=== PATIENT | male | born 1965 | race Caucasian/White ===

== ENCOUNTER 2020-04-21 11:18 | Inpatient (IN) | payer OTHER, SELFPAY ==
[2020-04-21] VITALS (26 sets, daily range): BP systolic 130–201; BP diastolic 11–120; PULSE 93–119; RESP 19–30; TEMP 36.1–37.2; O2SAT 90–99; BMI 33.0; BMI 33.5; BMI 33.6
--- NOTE | 2020-04-21 11:22 | NURSING ---
NO OLD EKGS
--- NOTE | 2020-04-21 11:25 | EKG12_ITS ---
Test Reason : CP Blood Pressure : / mmHG Vent. Rate : 117 BPM Atrial Rate : 117 BPM P-R Int : 144 ms QRS Dur : 100 ms QT Int : 302 ms P-R-T Axes : 049 062 -11 degrees QTc Int : 421 ms Sinus tachycardia Inferior infarct , age undetermined Anterior infarct , possibly acute Lateral injury pattern ACUTE [place] / STEMI Abnormal ECG Confirmed by JULES ESCAMILLA, CRESENCIO ([id number]), editorial project manager HENRIETTA DUKE ([id number]) on 04/25/2020 1:03:53 PM Referred By: ANA Confirmed By:CRESENCIO VICENTE MD
--- NOTE | 2020-04-21 11:25 | RAD_ITS ---
STUDY: X-RAY CHEST REASON FOR EXAM: Male, 54 years old. Myocardial infarction TECHNIQUE: Frontal view of the chest COMPARISON: None. FINDINGS: There are mild congestive changes noted. The lungs are otherwise clear. There are no pleural effusions. There is no pneumothorax. The heart is normal in size. The visualized osseous structures are within normal limits. RAD/Chest 1 View (Portable) IMPRESSION: Mild pulmonary vascular congestion. Electronically Signed: César Roa, at 19:11 EDT Tel , Service support ,
--- NOTE | 2020-04-21 11:32 | ED.VISSUMM ---
- ER Visit Summary Date of Service: 04/21/20 Chief Complaint: Acute midsternal chest pain History of Present Illness: The patient is a 54 M no significant past medical history thinks he has reflux. Does not go to the doctor. 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 He smokes 2 to 3 packs of cigarettes per day for 25 to 30 years. States the last week he has had intermittent chest pain he is unsure if it specifically associated with exertion. This morning he had chest pain that was worse midsternal and he decided come in to have it evaluated. Denies any pleuritic pain. Denies any radiation to his neck jaw or back. Denies any abdominal pain. Physical Examination: Aged male vital signs are stable his initial blood pressure is elevated at 201/120. He does not look septic or toxic. He is currently having chest pain. H EENT exam unremarkable small tobacco. Neck nontender no JVD. Lungs clear to auscultation bilaterally. Heart regular rhythm rate about 115 no murmur. Abdomen soft nontender normal bowel sounds no peritoneal signs. Remedies moves all 4. Equal symmetrical radial pulses. Calves are nontender without edema or cords. Neurologically is awake and alert with no focal motor deficits. Test Results: EKG done on arrival shows an acute ST elevation PR with 6-8+ millimeters ST elevation in leads V1, 2, 3, 4, 5 and 6. There is inverted T waves and 2 3 and aVF. Currently there is no old EKG available for comparison. This appears to be an acute anterior PR. STEMI protocol has been initiated. This x-ray portable 1 view shows chronic changes consistent with smoking but no acute change. Normal mediastinum and cardiac silhouette. CBC shows a white count of 13. Hemoglobin is 17. Chemistries unremarkable other than a glucose of 199. BUN of 12 creatinine 1 gap of 7. PT/INR PTT normal. Troponin 13.7 consistent with an acute PR. Emergency Department Course and Treatment: Patient is having an acute anterior PR. I have already spoken to the hospitalist nocturnist physician who is on his way to the hospital. Patient be given a heparin bolus and p.o. aspirin. Restaurant Assistant wants to hold currently on Brilinta and will decide on that in the Data Processing Control Clerk. Patient is doing well on repeat exam and his pain is improving. He been given a heparin bolus and p.o. aspirin. He will be taken to the Data Processing Control Clerk shortly. Treatment Plan: Cardiac lab support service tech for acute intervention and then ICU admission. Disposition: Admission Impression: Acute anterior PR Acute chest pain Acute hyperglycemia History of tobacco abuse This note was generated with Mimeo dictation software. It may contain incorrect words, spelling, and punctuation that were not noted in review of the chart prior to signing ED Disposition - Plan for ED Patient: Disposition: Acute Care [facility]
[2020-04-21 11:40] LABS: Absolute Lymphocyte Count 2.36 X10^3/uL (0.83-4.51); Basophil# 0.09 X10^3/uL; Basophil% 0.7 % (0-1); Eosinophil# 0.04 X10^3/uL; Eosinophils% 0.3 % (0-5); Hematocrit 50.9 % (40-54); Hemoglobin 17.3 g/dL (13.0-16.5); Lymphocyte # 2.36 X10^3/ul (4.0); Lymphocyte % 17.9 % (19-41); Mean Corpuscular Hgb 31.4 pg (27.0-32.0); Mean Corpuscular Volume 92.4 fL (80-94); Mean Platelet Vol. 10.2 fl (6.2-12.0); Monocyte# 0.71 X10^3/uL; Monocyte% 5.4 % (0-10); NRBC Flagged by Analyzer 0 % (0-5); Neutrophil # 9.95 X10^3/uL (2.7-7.7); Neutrophil % 75.5 % (47-70); Platelet Count 304 K/mm3 (150-450); RBC Distribution Width CV 13.2 % (11.6-14.6); RBC Distribution Width SD 44.4 fl (35.1-43.9); Red Blood Count 5.51 M/mm3 (4.6-6.2); White Blood Count 13.2 K/mm3 (4.4-11.0)
--- NOTE | 2020-04-21 11:42 | NURSING ---
ICU 7 STEMI [facility]
[2020-04-21] MEDS: Heparin Injection (Vial) 5,000 UNIT/ML VIAL 5000 UNIT IV (11:49)
[2020-04-21] MEDS: Aspirin 81 MG TAB.CHEW 324 MG PO (11:51)
[2020-04-21 11:57] LABS: International Normalized Ratio 1.1; Prothrombin Time (Protime)PT. 13.2 SECONDS (11.7-14.9)
[2020-04-21 11:58] LABS: Partial Thromboplast Time 34.8 Seconds (24.1-36.2)
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
[2020-04-21 12:11] LABS: Anion Gap 7 (5-15); BUN 12 mg/dL (7-18); BUN/Creat Ratio 11.2 RATIO (10-20); Calcium,Total 9.7 mg/dL (8.5-10.1); Chloride 103 mmol/L (98-107); Creatinine, Serum 1.07 mg/dL (0.70-1.30); EST Glomerular Filtration Rate 77 mL/min (>60); Est Glom Filt Rate - Afr Amer 93 mL/min (>60); Estimated Creatinine Clearance 82.44 ml/min; Glucose 199 mg/dL (74-106); Potassium 4.4 mmol/L (3.5-5.1); Sodium Level 134 mmol/L (136-145)
--- NOTE | 2020-04-21 13:00 | EKG12_ITS ---
Test Reason : AM EKG Blood Pressure : / mmHG Vent. Rate : 082 BPM Atrial Rate : 082 BPM P-R Int : 156 ms QRS Dur : 114 ms QT Int : 348 ms P-R-T Axes : 029 076 037 degrees QTc Int : 406 ms Normal sinus rhythm Anterior infarct , possibly acute * ACUTE [place] Abnormal ECG Confirmed by JULES ESCAMILLA, CRESENCIO ([id number]), scientific editor HENRIETTA DUKE ([id number]) on 04/25/2020 1:16:29 PM Referred By: GILMA Confirmed By:CRESENCIO VICENTE MD
--- NOTE | 2020-04-21 13:06 | CON.PCM_ITS ---
Reason for Consult Date of Consultation: 04/21/20 Reason for Consultation: STEMI History of Present Illness: The patient is a 54 M no significant past medical history of possible GERD, not on any meds, smokes 2 to 3 packs of cigarettes per day for 25 to 30 years. States the last week he has had intermittent chest pain he is unsure if it specifically associated with exertion. This morning he had chest pain that was worse midsternal and he decided come in to have it evaluated. Denies any pleuritic pain. Denies any radiation to his neck jaw or back. Denies any abdominal pain. EKG done in the emergency room revealed anterior ST elevation SD and a STEMI alert was called. Patient was evaluated and brought emergently to the [facility] where he underwent coronary angiography which revealed 100% occlusion of the LAD that was treated with thrombectomy and drug-eluting stent placement. Prior to placing the drug-eluting stent medical compliance was emphasized to the patient and bare-metal stent versus drug-coated stent was discussed in detail. Patient agreed to take his medicines on a regular basis and requested that we go ahead with a drug-coated stent. Review of systems: All systems reviewed. All else is negative except that in the HPI Past Medical History Allergies/Adverse Reactions: Allergies No Known Allergies Allergy (Verified 04/21/20 11:41) Home Medications: Ambulatory Orders Medication Instructions Recorded NK 04/21/20 Smoking Status: Current every day smoker Objective: Vital Signs Temp Pulse Resp BP Pulse Ox 98.9 F 109 H 26 H 183/118 H 97 04/21/20 11:36 04/21/20 11:36 04/21/20 11:36 04/21/20 11:36 04/21/20 11:36 Oxygen Flow Rate (L/min) 2 Oxygen Delivery Method Nasal Cannula Weight: 230 lb 6.4 oz Body Mass Index (BMI) 33.0 General: Awake, Alert, Oriented x 3 HEENT: Atraumatic Oral: Moist Mucosa Neck: Supple Lungs: Clear to auscultation Cardiovascular: Regular Rhythm Abdomen: Soft Extremities: No edema Skin: No Rashes Psych/Mental Status: Appropriate 04/21/20 11:30: WBC 13.2 H, RBC 5.51, Hgb 17.3 H, Hct 50.9, MCV 92.4, MCH 31.4, MCHC 34.0, Plt Count 304, MPV 10.2, Immature Gran % (Auto) 0.200, Neut % (Auto) 75.5 H, Lymph % (Auto) 17.9 L, Door % (Auto) 5.4, Eos % (Auto) 0.3, Baso % (Auto) 0.7, Absolute Neuts (auto) 10.0 H, Nucleated RBC % 0 04/21/20 11:30: PT 13.2, INR 1.1, APTT 34.8 04/21/20 11:30: Sodium 134 L, Potassium 4.4, Chloride 103, Carbon Dioxide 24.0, Anion Gap 7, BUN 12, Creatinine 1.07, Est GFR (MDRD) Af Amer 93, Est GFR (MDRD) Non-Af 77, BUN/Creatinine Ratio 11.2, Glucose 199 H, Calcium 9.7, Troponin I 13.700 H* Rhythm: EKG: ECHO: Stress Test: Cardiac Cath: PCI: CT Surgery: Holter monitor: EPS: PPM: CXR: Chest CT Scan: Assessment/Plan 1. Anterior ST elevation SD: Patient was treated with thrombectomy and drug-el uting stent placement to the LAD. We will keep him on aspirin, Brilinta, statin, Coreg, lisinopril. 2. LV dysfunction: Patient has severe LV dysfunction. We will start him on Coreg and lisinopril and titrate as tolerated. He is at risk for going into decompensated CHF and may end up needing Lasix. We will monitor this closely in the intensive care unit.
[2020-04-21] MEDS: 0.9% Normal Saline 1,000 ML 30 ML IV (13:15)
--- NOTE | 2020-04-21 13:28 | CL.I_ITS ---
Patient Name: DALTON WARREN Study Date: 04/21/2020 Performing: Florian Grimm MD Ht: 70 inches 178 cm : 1965 Wt: 231.8 lbs 105 kg Age: 54 Gender: male BSA: 2.22 PROCEDURE(S) PERFORMED RK98-FSC/COR/LV DN91-QFC, TAMERA AND/OR PTCA, ARTERY OR GRAFT, SINGLE VESSEL CLINICAL PROFILE AND CO-MORBIDITIES Indications: ACS <= 24 hrs Heart Failure: None Stress/Imaging Stress/Image Study Performed: No CAD Presentations: STEMI. Symptom onset Date/Time: 04/21/20 Time Not Available CONCLUSIONS CAD as described. Severe LV dysfunction. No significant or MR. Successful thrombectomy and TAMERA to pLAD RECOMMENDATIONS Follow up with primary quality control lab technician HERNÁN Lockwood for at least 12 months DESCRIPTION OF PROCEDURE The patient arrived to the procedure lab. The risks and benefits of the procedure as well as a full d escription of our services here and lack of surgical backup were fully explained to the patient and/o r their significant other prior to the catheterization. The Timeout was completed, verifying the wyatt ect patient and procedure. The patient's procedural site was prepped and draped in the usual fashion. Local anesthetic was given subcutaneously to right radial region with Lidocaine 2%. Using a modified Seldinger technique, arterial access was obtained via the right femoral artery, a 6Fr sheath was ins erted.. Left Ventriculography was performed in HIGUERA projection using a 5 Fr. JR4. LV to AO pullback p ressures were then recorded. Right Coronary Artery selective angiography was then performed in multip le views using a 5 Fr. JR 4 catheter. Left Coronary Artery selective angiography was performed in mul tiple views using a 6 Fr. XB 3.0 Guide catheter. XB 3.0 Guide catheter was inserted and engaged into the LCA. [employer] [place] Guide wire was advance d to the LAD. Sylvia AP inserted Pass # 1 Sylvia AP Removed Emerge 2.5 x 12 Balloon catheter was inse rted. Balloon catheter was advanced across lesion in the LAD, proximal. Angiogram performed pre ballo on dilatation. PTCA balloon inflated at 10 atms for 15 secs. PTCA balloon inflated at 10 atms for 15 secs. Angiogram performed post balloon dilatation. Synergy 2.75 x 20 Drug Eluting stent was inserted. Drug Eluting stent was advanced across the lesion in the LAD, proximal. Angiogram performed pre sten t deployment. Angiogram performed post stent deployment. The arterial sheath was pulled and a TR Ba nd was applied for hemostasis CORONARY ANGIOGRAPHY DOMINANCE: Right Dominant LEFT HEART ASSESSMENT Left Ventricular Ejection Fraction: by LV Gram 20 % Global Hypokinesis - Severe LEFT MAIN: Mild luminal irregularities LEFT ANTERIOR DESCENDING ARTERY: PROX LAD: 100 % Stenosis CIRCUMFLEX ARTERY: PROX CIRC: 40 % Stenosis RIGHT CORONARY ARTERY: MID RCA: 100 % Stenosis. RPL and RPDA fill via collaterals from the left VALVE FINDINGS: No Aortic Valve Stenosis No Mitral Insufficency INTERVENTION INFORMATION LESION SITE: LAD (Proximal) Lesion Complexity: High/C, chronic total occlusion: No, lesion at bifurcation: No, thrombus present: Yes, lesion length: 20 mm, culprit lesion: Yes Pre Stenosis: 100 % Pre intervention CHANO flow: 0 PROCEDURE: Drug Eluting Stent with pre dilatation., Thrombectomy Post Stenosis: 0 % Post intervention CHANO flow: 3 Lesion Devices: Bradley .014 [employer] [place] Straight 190cm Cardinal 6 Fr XB3.0 100cm Guide Catheter [email or web address] 6 Fr. Sylvia AP Aspiration Catheter Alberto Sci EMERGE MR 2.50x12 BALLOON Alberto Sci Synergy MR TAMERA 2.75x20 COMPLICATIONS No Complications PROCEDURE MEDICATIONS Oxygen: 2 L/min via nasal cannula Brilinta 180 mg PO @ 04/21/2020 12:54:36 Heparin given IA 04/21/2020 12:10:30 Verapamil 2.5mg, Ntg 100mcgs, 3000 units of Heparin given IA 04/21/2020 12:10:30 IV Bolus: .9 NaCl 600ml total 04/21/2020 12:41:30 SUMMARY OF HEMODYNAMIC DATA Time AIR REST ECG 12:00:11 LV 156/0, 25 12:11:48 LV 161/-2, 24 12:11:54 LV 164/0, 29 12:12:24 LVp 153/0, 28 12:12:30 AOp 151/93 (119) 12:12:35 AO 152/93 (119) SA 12:12:37 Signed By Florian Grimm MD On 04/21/2020 13:27:47 Florian Grimm MD
[2020-04-21 13:52] LABS: Hematocrit 49.1 % (40-54); Hemoglobin 16.6 g/dL (13.0-16.5); Mean Corp Hgb Conc 33.8 g/dL (32-36); Mean Corpuscular Volume 91.8 fL (80-94); Mean Platelet Vol. 10.3 fl (6.2-12.0); Platelet Count 294 K/mm3 (150-450); RBC Distribution Width CV 13.1 % (11.6-14.6); RBC Distribution Width SD 44.3 fl (35.1-43.9); Red Blood Count 5.35 M/mm3 (4.6-6.2); White Blood Count 13.5 K/mm3 (4.4-11.0)
--- NOTE | 2020-04-21 14:09 | PCM.HP.STD ---
Problem List (1) Acute anterior wall HI Status: Acute (2) STEMI (ST elevation myocardial infarction) Status: Acute (3) History of coronary artery stent placement Status: Acute Comment: PCI-Thrombectomy and TAMERA-Prox LAD w/ 2.75 x 20 mm Synergy Stent 04/21/2020 (4) Atherosclerotic heart disease [place] coronary artery w/angina pectoris Status: Acute (5) Ischemic cardiomyopathy Status: Acute (6) Nicotine dependence Status: Chronic (7) Obesity Status: Chronic History of Present Illness Date of Admission: 04/21/20 Chief Complaint: chest pain The patient is a 54 year old M who was in his normal state of health and then had chest pain this morning. Patient stated the chest pain was midsternal and went through to his back. States that his left fingertips went numb as well. Short of breath and diaphoretic. Never had any issues like this before. Patient presented to the emergency room and was found to have an anterior ST elevation myocardial infarction EKG. STEMI team was called and patient was taken to the [facility]. Dr. Grimm performed left heart catheterization and patient had a LAD lesion which he had a stent placed also found to have a chronically occluded RCA lesion that was not addressed as that was not acute culprit of his chest pain and collateral vessels were noted. In the emergency room, patient was started on heparin, ticagrelor and aspirin. Patient states that since the heart catheterization his symptoms are better but not resolved at this time. [] Past Medical History Past Medical History (Chronic Problems): Chronic Problems Nicotine dependence (Chronic) Obesity (Chronic) Medical History: Medical History (Last Reviewed 04/21/20 @ 14:[address] Carlos Kaufman DO) STEMI (ST elevation myocardial infarction) (Acute) Onset Date: 04/21/20 I21.3 Atherosclerotic heart disease [place] coronary artery w/angina pectoris (Acute) I25.119 Ischemic cardiomyopathy (Acute) I25.5 Allergies No Known Allergies Allergy (Verified 04/21/20 11:41) Home Medications: Ambulatory Orders Medication Instructions Recorded NK 04/21/20 Surgical History: Surgical History History of coronary artery stent placement (Acute) Onset Date: 04/21/20 Z95.5 PCI-Thrombectomy and TAMERA-Prox LAD w/ 2.75 x 20 mm Synergy Stent 04/21/2020 Lives: With Family Smoking Status: Heavy Smoker (>10/day) - 2-3 PPD Tobacco Use: Cigarettes Alcohol: None Drugs: None - *Family History Paternal History Items: Stroke Review of Systems Constitutional: Reports: Malaise. Denies: Anorexia, Chills, Fever Eyes: Denies: Blurred vision, Double vision HEENT: Denies: Head Aches, Sinus Congestion, Sinus Drainage Cardiovascular: Reports: Chest Pain. Denies: Edema Respiratory: Reports: Shortness of Breath Gastrointestinal: Denies: Abdominal Pain, Nausea, Vomiting Genitourinary: Denies: Dysuria Musculoskeletal: Denies: Joint Pain, Joint Tenderness Skin: Denies: Rash, Wounds Hematologic/ Lymphatic: Denies: Easy Bruising, Easy Bleeding Comment: All review of systems were negative except as mentioned above in the history of present illness and the other review of systems. VTE Information - Inpt Only VTE Present on Admission: No VTE Mechan Device Prophylaxis: None VTE Pharm Prophylaxis ordered?: Yes Patient Problems: Active and Suspected Problems Acute anterior wall HI (Acute 04/21/20) STEMI (ST elevation myocardial infarction) (Acute 04/21/20) History of coronary artery stent placement (Acute 04/21/20) PCI-Thrombectomy and TAMERA-Prox LAD w/ 2.75 x 20 mm Synergy Stent 04/21/2020 Atherosclerotic heart disease [place] coronary artery w/angina pectoris (Acute) Ischemic cardiomyopathy (Acute) - Physical Exam Vitals/I&O's: Vital Signs Temp Pulse Resp BP Pulse Ox 37.2 C 109 H 26 H 183/118 H 91 04/21/20 11:36 04/21/20 11:36 04/21/20 11:36 04/21/20 11:36 04/21/20 13:09 Oxygen Flow Rate (L/min) 2 Oxygen Delivery Method Nasal Cannula Weight: 106.1 kg Body Mass Index (BMI) 33.5 General: Alert, No apparent distress, Well developed, Well nourished HEENT: Atraumatic, Normocephalic Oral: Moist Mucosa, No Gingival or Mucosal Lesions/ Ulcerations Neck: No Nodes, Thyroid Normal Size and Texture Lungs: Clear to auscultation, Normal air movement, No rhonchi, No wheeze, No rales Cardiovascular: Regular rate, Regular Rhythm, Normal S1, Normal S2, No murmurs Abdomen: Bowel Sounds Present, Soft, Non Tender, Non-Distended, Obese Extremities: No edema, Capillary Refill Less than 3 Seconds, No Calf Tenderness Skin: No rashes, No breakdown Musculoskeletal: No Tenderness to Palpation of Joints or Extremities, No Muscle Wasting Neurological: Neuro grossly intact, Sensory exam intact to light touch and pain Psych/Mental Status: Normal Affect, Appropriate Laboratory Results 04/21/20 11:30: WBC 13.2 H, RBC 5.51, Hgb 17.3 H, Hct 50.9, MCV 92.4, MCH 31.4, MCHC 34.0, RDW Std Deviation 44.4 H, RDW Coeff of Shauna 13.2, Plt Count 304, MPV 10.2, Immature Gran % (Auto) 0.200, Neut % (Auto) 75.5 H, Lymph % (Auto) 17.9 L, [place] % (Auto) 5.4, Eos % (Auto) 0.3, Baso % (Auto) 0.7, Absolute Neuts (auto) 10.0 H, Absolute Lymphs (auto) 2.36, Nucleated RBC % 0 04/21/20 11:30: PT 13.2, INR 1.1, APTT 34.8 04/21/20 11:30: Sodium 134 L, Potassium 4.4, Chloride 103, Carbon Dioxide 24.0, Anion Gap 7, BUN 12, Creatinine 1.07, Estim Creat Clear Calc 82.44, Est GFR (MDRD) Af Amer 93, Est GFR (MDRD) Non-Af 77, BUN/Creatinine Ratio 11.2, Glucose 199 H, Calcium 9.7, Troponin I 13.700 H* 04/21/20 13:30: WBC 13.5 H, RBC 5.35, Hgb 16.6 H, Hct 49.1, MCV 91.8, MCH 31.0, MCHC 33.8, RDW Std Deviation 44.3 H, RDW Coeff of Shauna 13.1, Plt Count 294, MPV 10.3 EKG reviewed and showed ST elevation in the anterior leads and post catheterization, showed improvement though not complete resolution of the ST elevation. Chest x-ray reviewed and showed no acute process. Current Medications Aspirin (Aspirin, Baby) 324 mg PO X1 ONE Stop: 04/21/20 12:55 Aspirin (Ecotrin) 81 mg PO DAILY@0800 KARLENE Atorvastatin Calcium (Lipitor) 40 mg PO QHS REPLACED BY [facility] Atropine Sulfate () 0.5 mg IV UD PRN PRN Reason: HR <50 bpm Carvedilol (Coreg) 6.25 mg PO BID REPLACED BY [facility] Dextrose (D50w Syringe) 0 gm IV X1 PRN; Protocol PRN Reason: Hypoglycemia Glucagon () 1 mg IM .X1 PRN PRN Reason: Hypoglycemia Heparin Sodium (Beef Lung) (Heparin 500 Unit/5 Ml (100/Ml)) 500 unit IV UD PRN PRN Reason: HEPARIN FLUSH Sodium Chloride () 1,000 mls @ 30 mls/hr IV .[id number] REPLACED BY [facility] Eptifibatide (Integrilin) 75 mg in 100 mls @ 16.721 mls/hr CONT INF .Q5H59M REPLACED BY [facility] Stop: 04/21/20 18:00 Labetalol HCl (Trandate) 5 mg IV X1 PRN PRN Reason: SBP > 160 when pulling sheath Stop: 04/23/20 12:55 Lisinopril (Zestril) 5 mg PO DAILY REPLACED BY [facility] Morphine Sulfate () 2 mg IV Q3H PRN PRN PRN Reason: Pain Score 6-10/10 Oxycodone HCl (Oxyir) 5 - 10 mg PO Q4H PRN PRN PRN Reason: Pain Score 6-10/10 Sodium Chloride () 500 ml IV BOLUS PRN PRN Reason: VASO-VAGAL PROTOCOL Sodium Chloride () 10 - 40 ml IV UD PRN PRN Reason: SALINE FLUSH Ticagrelor (Brilinta) 90 mg PO BID REPLACED BY [facility] Assessment/Plan All Active Problems Acute anterior wall HI (Acute 04/21/20) STEMI (ST elevation myocardial infarction) (Acute 04/21/20) History of coronary artery stent placement (Acute 04/21/20) Atherosclerotic heart disease [place] coronary artery w/angina pectoris (Acute) Ischemic cardiomyopathy (Acute) 1. ST ovation myocardial infarction: Status post percutaneous coronary intervention with a stent to the LAD. Patient on Brilinta and ticagrelor as well as a statin. Further management per cardiology. Impressed upon the patient the importance of continuing medications compliance. Check lipid panel. 2. Ischemic cardiomyopathy: EF was 15%. Patient has been started on carvedilol as well as lisinopril. Patient will need to have follow-up in regards to reevaluate his ejection fraction. 3. Hyperglycemia: Patient denies any past medical history though has not seen a physician in a long time. Concerned that the patient may be a type II diabetic. Patient be on sliding scale insulin and will check an A1c. 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 Recommend orals instead given that it would preclude him from participating in his job any further if he is on insulin. 4. Tobacco abuse: Encouraged cessation. Patient smokes 2 to 3 packs of cigarettes per day. Told patient that that is his biggest preventable risk factor 5. VTE prophylaxis: Moderate risk. Patient will be on enoxaparin. 6. Advanced care planning: Discussed with the patient. Talk to patient about CPR. He is unsure at this time. Told him to think about it and ask us for further questions if he has any. I told him that I would leave him at full CODE STATUS at this point in time until he tells us otherwise. For the patient that he will need to follow-up with physicians upon discharge such as a primary care doctor as well as the general service officer. Patient states that he is just not seen anyone in years as he does not like going to doctors. Inpatient E&M: [id number] Init Hosp L3
[2020-04-21] MEDS: 0.9% Saline Lock 10 ML Syringe IV ×2 (14:47→18:16)
[2020-04-21] MEDS: oxyCODONE 5 MG Tablet PO ×2 (14:48→20:19)
[2020-04-21] MEDS: Lisinopril 5 MG Tablet PO (14:48)
[2020-04-21] MEDS: Carvedilol 6.25 MG Tablet PO ×2 (14:48→21:21)
--- NOTE | 2020-04-21 14:50 | CASEMGMT ---
RN LEANA Face to Face with patient for initial transition planning/care coordination assessment. RN CM introduced self and role at [facility]. Patient lying in bed, alert and oriented. Patient willing to participate in assessment and is able to answer all questions appropriately. Care providers, pharmacy, and demographics verified. Patient wishes to discharge home, denies need for home health at this time. Patient states he has no further needs or concerns at this time. CM to follow for discharge planning needs that may arise. PCP: No PCP, list provided to patient Specialists: none, will need to follow up with cardiology Preferred Pharmacy: [facility] Insurance: [employer] rule Prescription Benefit: yes, brilinta savings card given to patient Living Will/HPOA: none LNOK: Living Arrangements: Patient lives with in 2 story home, patient able to ambulate stairs. Transportation: self, DME/HHC: Patient denies any DME or previous HHC. Disposition Plan: Patient to discharge home with family support and follow-up plans in place. Stephany DE ANDA, RN, CM
[2020-04-21 15:21] LABS: Anion Gap 9 (5-15); BUN 10 mg/dL (7-18); Calcium,Total 9.1 mg/dL (8.5-10.1); Chloride 103 mmol/L (98-107); Creatinine, Serum 0.91 mg/dL (0.70-1.30); EST Glomerular Filtration Rate 93 mL/min (>60); Est Glom Filt Rate - Afr Amer 112 mL/min (>60); Estimated Creatinine Clearance 96.93 ml/min; Glucose 148 mg/dL (74-106); Potassium 4.2 mmol/L (3.5-5.1); Sodium Level 134 mmol/L (136-145)
[2020-04-21 15:30] LABS: Bedside Glucose 155 mg/dL (70-110)
[2020-04-21] MEDS: Atorvastatin Calcium 40 MG Tablet PO (21:21)
[2020-04-22] VITALS (29 sets, daily range): BP systolic 98–133; BP diastolic 63–83; PULSE 81–104; RESP 18–25; TEMP 36.5–37.1; O2SAT 93–96
[2020-04-22 04:04] LABS: Hematocrit 43.9 % (40-54); Hemoglobin 14.9 g/dL (13.0-16.5); Mean Corp Hgb Conc 33.9 g/dL (32-36); Mean Corpuscular Hgb 30.7 pg (27.0-32.0); Mean Corpuscular Volume 90.5 fL (80-94); Platelet Count 274 K/mm3 (150-450); RBC Distribution Width SD 42.7 fl (35.1-43.9); Red Blood Count 4.85 M/mm3 (4.6-6.2)
[2020-04-22 04:30] LABS: ALB/GLOB Ratio 0.7 RATIO (0.9-2.4); AST(SGOT) 369 U/L (15-37); Alanine Aminotransfer ALT/SGPT 69 U/L (16-61); Albumin, Serum 3.1 g/dL (3.2-5.0); Alkaline Phosphatase 106 U/L (45-117); Anion Gap 7 (5-15); BUN 14 mg/dL (7-18); BUN/Creat Ratio 14.3 RATIO (10-20); Calcium,Total 8.6 mg/dL (8.5-10.1); Chloride 101 mmol/L (98-107); Cholesterol 204 mg/dL (200); Creatinine, Serum 0.98 mg/dL (0.70-1.30); EST Glomerular Filtration Rate 85 mL/min (>60); Est Glom Filt Rate - Afr Amer 103 mL/min (>60); Estimated Creatinine Clearance 90.01 ml/min; Globulin 4.4 g/dL (2.2-4.2); Glucose 181 mg/dL (74-106); High Density Lipoprotein 20 mg/dL; Protein, Total 7.5 g/dL (6.4-8.2); Sodium Level 132 mmol/L (136-145); Triglycerides 181 mg/dL; Very Low Density Lipoprotein 36 mg/dL (5-40)
[2020-04-22] MEDS: Carvedilol 6.25 MG Tablet PO ×2 (08:18→21:22)
[2020-04-22] MEDS: Lisinopril 5 MG Tablet PO (08:18)
[2020-04-22] MEDS: Insulin Lispro 100 UNIT/ML INSULN.PEN SC ×3 (08:18→17:03)
[2020-04-22] MEDS: Aspirin E.C. 81 MG Tablet PO (08:18)
[2020-04-22] MEDS: TICAGRELOR 90 MG TABLET PO ×2 (08:18→21:23)
[2020-04-22 08:26] LABS: Hemoglobin A1c 8.5 % (3.8-5.6)
[2020-04-22 08:31] LABS: Bedside Glucose 163 mg/dL (70-110)
--- NOTE | 2020-04-22 09:39 | PN_ITS ---
Patient Problems: Active and Suspected Problems (Last Reviewed 04/21/20 @ 14:[address] 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 Vitals/I&O's: Vital Signs Temp Pulse Resp BP Pulse Ox 36.5 C L 98 24 H 112/73 93 04/22/20 08:00 04/22/20 09:00 04/22/20 09:00 04/22/20 09:00 04/22/20 09:00 Oxygen Flow Rate (L/min) 2 Oxygen Delivery Method Room Air Weight: 104.9 kg Body Mass Index (BMI) 33.5 Intake and Output for Last 24 Hours 04/20/20 04/21/20 04/22/20 23:59 23:59 23:59 Intake Total 622.83 / 622.83 700.00 / 700.00 Output Total 1225 / 1225 425 / 425 Balance -602.17 / -602.17 275.00 / 275.00 General: Alert, No apparent distress HEENT: Atraumatic, Normocephalic Oral: Moist Mucosa, No Gingival or Mucosal Lesions/ Ulcerations Neck: No Nodes, Thyroid Normal Size and Texture Lungs: Clear to auscultation, Normal air movement, No rhonchi, No wheeze, No rales Cardiovascular: Regular rate, Regular Rhythm, Normal S1, Normal S2, No murmurs Abdomen: Bowel Sounds Present, Soft, Non Tender, Non-Distended, No Hepato- splenomegaly Extremities: No edema, Capillary Refill Less than 3 Seconds, No Calf Tenderness Musculoskeletal: No Tenderness to Palpation of Joints or Extremities, No Muscle Wasting Psych/Mental Status: Normal Affect, Appropriate Laboratory Results 04/21/20 11:30: WBC 13.2 H, RBC 5.51, Hgb 17.3 H, Hct 50.9, MCV 92.4, MCH 31.4, MCHC 34.0, RDW Std Deviation 44.4 H, RDW Coeff of Shauna 13.2, Plt Count 304, MPV 10.2, Immature Gran % (Auto) 0.200, Neut % (Auto) 75.5 H, Lymph % (Auto) 17.9 L, [place] % (Auto) 5.4, Eos % (Auto) 0.3, Baso % (Auto) 0.7, Absolute Neuts (auto) 10.0 H, Absolute Lymphs (auto) 2.36, Nucleated RBC % 0 04/21/20 11:30: PT 13.2, INR 1.1, APTT 34.8 04/21/20 11:30: Sodium 134 L, Potassium 4.4, Chloride 103, Carbon Dioxide 24.0, Anion Gap 7, BUN 12, Creatinine 1.07, Estim Creat Clear Calc 82.44, Est GFR (MDRD) Af Amer 93, Est GFR (MDRD) Non-Af 77, BUN/Creatinine Ratio 11.2, Glucose 199 H, Calcium 9.7, Troponin I 13.700 H* 04/21/20 13:30: WBC 13.5 H, RBC 5.35, Hgb 16.6 H, Hct 49.1, MCV 91.8, MCH 31.0, MCHC 33.8, RDW Std Deviation 44.3 H, RDW Coeff of Shauna 13.1, Plt Count 294, MPV 10.3 04/21/20 14:00: Sodium 134 L, Potassium 4.2, Chloride 103, Carbon Dioxide 22.0, Anion Gap 9, BUN 10, Creatinine 0.91, Estim Creat Clear Calc 96.93, Est GFR (MDRD) Af Amer 112, Est GFR (MDRD) Non-Af 93, BUN/Creatinine Ratio 11.0, Glucose 148 H, Calcium 9.1, Troponin I > 200.000 H* 04/21/20 15:24: POC Glucose 155 H 04/21/20 17:25: Troponin I > 200.000 H* 04/22/20 03:55: WBC 13.0 H, RBC 4.85, Hgb 14.9, Hct 43.9, MCV 90.5, MCH 30.7, MCHC 33.9, RDW Std Deviation 42.7, RDW Coeff of Shauna 13.0, Plt Count 274, MPV 10.0 04/22/20 03:55: Sodium 132 L, Potassium 4.0, Chloride 101, Carbon Dioxide 24.0, Anion Gap 7, BUN 14, Creatinine 0.98, Estim Creat Clear Calc 90.01, Est GFR (MDRD) Af Amer 103, Est GFR (MDRD) Non-Af 85, BUN/Creatinine Ratio 14.3, Glucose 181 H, Calcium 8.6, Total Bilirubin 1.00, AST 369 H, ALT 69 H, Alkaline Phosphatase 106, Total Protein 7.5, Albumin 3.1 L, Globulin 4.4 H, Albumin/Globulin Ratio 0.7 L, Triglycerides 181, Cholesterol 204 H, LDL Cholesterol 148 H, VLDL Cholesterol 36, HDL Cholesterol 20 L, TSH 1.20 04/22/20 03:55: Hemoglobin A1c 8.5 H 04/22/20 08:08: POC Glucose 163 H Current Medications Aspirin (Ecotrin) 81 mg PO DAILY@0800 [facility] Last Admin: 04/22/20 08:18 Dose: 81 mg Documented by: Atorvastatin Calcium (Lipitor) 40 mg PO QHS [facility] Last Admin: 04/21/20 21:21 Dose: 40 mg Documented by: Atropine Sulfate () 0.5 mg IV UD PRN PRN Reason: HR <50 bpm Carvedilol (Coreg) 6.25 mg PO BID [facility] Last Admin: 04/22/20 08:18 Dose: 6.25 mg Documented by: Dextrose (D50w Syringe) 0 gm IV X1 PRN; Protocol PRN Reason: Hypoglycemia Enoxaparin Sodium (Lovenox) 40 mg SC DAILY [facility] Last Admin: 04/22/20 08:19 Dose: Not Given Documented by: Glucagon () 1 mg IM .X1 PRN PRN Reason: Hypoglycemia Heparin Sodium (Beef Lung) (Heparin 500 Unit/5 Ml (100/Ml)) 500 unit IV UD PRN PRN Reason: HEPARIN FLUSH Sodium Chloride () 1,000 mls @ 30 mls/hr IV .[id number] [facility] Last Infusion: 04/21/20 15:15 Dose: Infused Documented by: Insulin Human Lispro (Humalog Kwikpen (Bkc)) 0 unit SC TIDAC [facility]; Protocol Last Admin: 04/22/20 08:18 Dose: 3 u Documented by: Labetalol HCl (Trandate) 5 mg IV X1 PRN PRN Reason: SBP > 160 when pulling sheath Stop: 04/23/20 12:55 Lisinopril (Zestril) 5 mg PO DAILY [facility] Last Admin: 04/22/20 08:18 Dose: 5 mg Documented by: Morphine Sulfate () 2 mg IV Q3H PRN PRN PRN Reason: Pain Score 6-10/10 Ondansetron HCl (Zofran) 4 mg IV Q8H PRN PRN PRN Reason: NAUSEA Oxycodone HCl (Oxyir) 5 - 10 mg PO Q4H PRN PRN PRN Reason: Pain Score 6-10/10 Last Admin: 04/21/20 20:19 Dose: 5 mg Documented by: Sodium Chloride () 500 ml IV BOLUS PRN PRN Reason: VASO-VAGAL PROTOCOL Sodium Chloride () 10 - 40 ml IV UD PRN PRN Reason: SALINE FLUSH Last Admin: 04/21/20 18:16 Dose: 10 ml Documented by: Ticagrelor (Brilinta) 90 mg PO BID [facility] Last Admin: 04/22/20 08:18 Dose: 90 mg Documented by: STROKE Vital Signs/Narrative: Vital Signs Temp Pulse Resp BP Pulse Ox 04/22/20 09:00 98 24 H 112/73 93 04/22/20 08:00 36.5 C L 96 21 H 117/77 95 04/22/20 07:20 104 H 04/22/20 07:00 94 20 H 121/75 H 95 04/22/20 06:52 96 04/22/20 06:00 88 20 H 109/78 96 Medical Necessity - Tobacco Use Smoking Status: Heavy Smoker (>10/day) Tobacco Use: Cigarettes Assessment/Plan All Active Problems (Last Reviewed 04/21/20 @ 14:[address] 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 ST elevation myocardial infarction: * 04/21: Status post percutaneous coronary intervention with a stent to the LAD. * Patient on ASA and ticagrelor as well as a statin. Further management per cardiology. Impressed upon the patient the importance of continuing medications compliance. Check lipid panel. * troponins greater than 200 on labs 2. Ischemic cardiomyopathy: * EF was 15% from [facility]. * Patient has been started on carvedilol as well as lisinopril. * check echo * Patient will need to have follow-up in regards to reevaluate his ejection fraction to see if would need an AICD 3. 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 Recommend metformin, but hold start given the contrast he received on 04/21 4. Tobacco abuse: Encouraged cessation. Patient smokes 2 to 3 packs of cigarettes per day. Told patient that that is his biggest preventable risk factor 5. VTE prophylaxis: Moderate risk. Patient will be on enoxaparin. 6. Advanced care planning: Discussed with the patient. Talk to patient about CPR. He is unsure at this time. Told him to think about it and ask us for further questions if he has any. I told him that I would leave him at full CODE STATUS at this point in time until he tells us otherwise. For the patient that he will need to follow-up with physicians upon discharge such as a primary care doctor as well as the manager cath lab. Patient states that he is just not seen anyone in years as he does not like going to doctors. Inpatient E&M: 16464 Subs Hosp L2
--- NOTE | 2020-04-22 09:41 | ECHOCS_ITS ---
Reason For Study: STEMI Procedure This was a 2D Doppler, Color Flow transthoracic echocardiogram. The study was technically difficult. Contrast injection was performed. Exam performed portable in ICU/CCU. Left Ventricle Mildly dilated left ventricle. The estimated ejection fraction is 35 %. Stage 1 diastolic dysfunction. Severe hypokinesis of the apex, anterior wall and septum. Right Ventricle Normal RV size. Normal systolic function. Atria Normal left atrium. Normal right atrium. No doppler evidence for ASD. Mitral Valve There is no mitral valve stenosis. No mitral valve insufficiency. Tricuspid Valve There is no tricuspid stenosis. Unable to estimate RV systolic pressure due to inadequate jet, pulmonary artery pressure probably normal. No tricuspid valve insufficiency. Aortic Valve Trisinus/trileaflet aortic valve. There is no aortic stenosis. No aortic valve insufficiency. Pulmonic Valve There is no pulmonic valvular stenosis. No pulmonic valve insufficiency. Great Vessels Normal aortic root. Pericardium/Pleural No pericardial effusion. Medication Diluted definity 3ml given slow IV push to enhance endocardial definition. MMode/2D Measurements & Calculations LVIDd: 4.9 cm IVSd: 1.0 cm LA dimension: 3.9 cm LVIDs: 4.2 cm LVPWd: 1.1 cm RVDd: 3.9 cm FS: 15.7 % LAV(MOD-bp): 49.9 ml LA A4 area: 15.7 cm2 RA A4 area: 13.8 cm2 LAV(MOD-bp) Indexed: 22.5 ml/m2 LAV(MOD-sp2): 62.0 ml LAV(MOD-sp4): 37.8 ml Time Measurements MV dec time: 0.14 sec Doppler Measurements & Calculations MV E max jose: 87.3 cm/sec Lat Peak E' Jose: 7.0 cm/sec Med Peak E' Jose: 5.4 cm/sec MV A max jose: 95.1 cm/sec E/E' lat: 12.5 E/E' med: 16.3 MV E/A: 0.92 MV V2 max: 117.5 cm/sec MV P1/2t max jose: 119.4 cm/sec Ao V2 max: 137.8 cm/sec MV max P.5 mmHg MV P1/2t: 99.5 msec Ao max P.6 mmHg MV V2 mean: 75.7 cm/sec MV dec slope: 351.7 cm/sec2 MV mean P.6 mmHg MV V2 VTI: 32.1 cm MVA(P1/2t): 2.2 cm2 LV V1 max: 109.5 cm/sec PA V2 max: 101.1 cm/sec LV V1 max P.8 mmHg Interpretation Summary The estimated ejection fraction is 35 %. Stage 1 diastolic dysfunction. Severe hypokinesis of the apex, anterior wall and septum Ordering Physician: Carlos Kaufman Referring Physician: Tiana PCP Performed By: Diego Ansari RCS
--- NOTE | 2020-04-22 10:00 | EKG12_ITS ---
Test Reason : AM EKG Blood Pressure : / mmHG Vent. Rate : 097 BPM Atrial Rate : 097 BPM P-R Int : 142 ms QRS Dur : 100 ms QT Int : 328 ms P-R-T Axes : 043 072 042 degrees QTc Int : 416 ms Normal sinus rhythm Inferior infarct , age undetermined Anterior infarct , possibly acute * ACUTE [place] Abnormal ECG Confirmed by JULES ESCAMILLA, CRESENCIO ([id number]), technical editor HENRIETTA DUKE ([id number]) on 04/25/2020 1:16:44 PM Referred By: GILMA Confirmed By:CRESENCIO VICENTE MD
[2020-04-22 11:40] LABS: Bedside Glucose 174 mg/dL (70-110)
[2020-04-22 17:11] LABS: Bedside Glucose 187 mg/dL (70-110)
--- NOTE | 2020-04-22 19:15 | PN.CARD_ITS ---
Subjectve: Doing well. Denies any chest pain. Objective: Vital Signs Temp Pulse Resp BP Pulse Ox 98.0 F 86 24 H 117/73 94 04/22/20 16:00 04/22/20 18:00 04/22/20 18:00 04/22/20 18:00 04/22/20 18:00 Oxygen Flow Rate (L/min) 1 Oxygen Delivery Method Nasal Cannula Weight: 231 lb 4.238 oz Body Mass Index (BMI) 33.5 Intake and Output for Last 24 Hours 04/20/20 04/21/20 04/22/20 23:59 23:59 23:59 Intake Total 622.83 / 622.83 1980.00 / 1979.00 Output Total 1225 / 1225 1150 / 1150 Balance -602.17 / -602.17 830.00 / 830.00 General: Awake, Alert HEENT: Atraumatic Oral: Moist Mucosa Neck: Supple Lungs: Clear to auscultation Cardiovascular: Regular Rhythm Abdomen: Soft Skin: No Rashes Psych/Mental Status: Appropriate 04/22/20 03:55: WBC 13.0 H, RBC 4.85, Hgb 14.9, Hct 43.9, MCV 90.5, MCH 30.7, MCHC 33.9, Plt Count 274, MPV 10.0 04/22/20 03:55: Sodium 132 L, Potassium 4.0, Chloride 101, Carbon Dioxide 24.0, Anion Gap 7, BUN 14, Creatinine 0.98, Est GFR (MDRD) Af Amer 103, Est GFR (MDRD) Non-Af 85, BUN/Creatinine Ratio 14.3, Glucose 181 H, Calcium 8.6, Total Bilirubin 1.00, Triglycerides 181, Cholesterol 204 H, LDL Cholesterol 148 H, VLDL Cholesterol 36, HDL Cholesterol 20 L 04/22/20 03:55: Hemoglobin A1c 8.5 H Rhythm: EKG: ECHO: Stress Test: Cardiac Cath: PCI: CT Surgery: Holter monitor: EPS: PPM: CXR: Chest CT Scan: Medical Necessity - Tobacco Use Smoking Status: Heavy Smoker (>10/day) Tobacco Use: Cigarettes Assessment/Plan 1. Anterior ST elevation MD: Patient was treated with thrombectomy and drug- eluting stent placement to the LAD. We will keep him on aspirin, Brilinta, statin, Coreg, lisinopril. 2. LV dysfunction: Patient has severe LV dysfunction. We will keep him on Coreg and lisinopril and titrate as tolerated. He could potentially be transferred to the PCU later tonight or tomorrow.
[2020-04-22 20:46] LABS: Bedside Glucose 221 mg/dL (70-110)
--- NOTE | 2020-04-22 21:15 | NURSING ---
Reclining chair brought into room and set up; offered to assist pt up into chair but he refused at this time stating I'm actually comfortable in the bed. Pt placed on portable telemetry box, pulse ox sticker removed and finger clip applied to check oxygen level at intervals so as to free pt from wires as requested. Pt states appreciation. Pt reminded to call staff into room before attempting to get up for the first time to the chair, pt agrees. Call light within reach.
[2020-04-22] MEDS: Atorvastatin Calcium 40 MG Tablet PO (21:23)
[2020-04-23] VITALS (21 sets, daily range): BP systolic 94–122; BP diastolic 67–80; PULSE 55–92; RESP 14–25; TEMP 36–37.6; O2SAT 94–97; BMI 33.5
[2020-04-23 04:33] LABS: Hematocrit 40.6 % (40-54); Hemoglobin 13.7 g/dL (13.0-16.5); Mean Corp Hgb Conc 33.7 g/dL (32-36); Mean Corpuscular Hgb 30.5 pg (27.0-32.0); Mean Corpuscular Volume 90.4 fL (80-94); Mean Platelet Vol. 10.6 fl (6.2-12.0); Platelet Count 259 K/mm3 (150-450); RBC Distribution Width CV 13.1 % (11.6-14.6); Red Blood Count 4.49 M/mm3 (4.6-6.2); White Blood Count 14.2 K/mm3 (4.4-11.0)
--- NOTE | 2020-04-23 05:12 | NURSING ---
Telemetry alarms pause and bradycardia, ventricular rate noted to be 35. Pt awake upon staff arrival to room. Pt denies chest pain or pressure; denies feeling like he was kicked in the chest, pt states only felt like I couldn't catch my breath. Alarm strip posted to pt's chart.
--- NOTE | 2020-04-23 05:43 | NURSING ---
AM EKG obtained by RT; per RT report pt looks like he's having SOB. Pt assessed and denies being SOB, but says ok, I think that'll help when asked if he feels like he needs a little more oxygen flow through the NC. Pt asked again about feeling SOB and cont to deny, and asked if he was feeling anything like when he came in to the ER, having any pressure and pt strongly states no. I didn't say that. I don't feel anything like that. Pt becoming very defensive about symptom questioning. Oxygen turned up to 2lpm per NC. Pt encouraged to alert staff in regards to any change in symptoms, pt nods head and simply said uh huh.
--- NOTE | 2020-04-23 07:00 | PCM.PN.HOSP ---
Patient Problems: Active and Suspected Problems (Last Reviewed 04/21/20 @ 14:[address] Carlos Kaufman, DO) Acute anterior wall [place] (Acute 04/21/20) STEMI (ST elevation myocardial infarction) (Acute 04/21/20) History of coronary artery stent placement (Acute 04/21/20) PCI-Thrombectomy and TAMERA-Prox LAD w/ 2.75 x 20 mm Synergy Stent 04/21/2020 Atherosclerotic heart disease [place] coronary artery w/angina pectoris (Acute) Ischemic cardiomyopathy (Acute) Subjective: Patient overnight with dyspnea primarily when he is exerting himself however he not denies any concurrent chest discomfort, pressure or tightness. He states it improves when he rests. He notes feeling improved since initial ED presentation. Patient has had a normal MAP however his systolic blood pressures have decreased into the high 90s with new BP regimen but he denies any lightheadedness or dizziness therefore regimen continued per cardiology request. Patient with no market telemetry events. Patient denies fevers, chills, nausea, emesis, abdominal pain or recurrent chest pain. Objective: Physical Examination: General: awake, alert, oriented x 3 and cooperative, seated upright in the ICU bed in no apparent distress, denies any chest discomfort or dyspnea at this time. Skin: normal color, turgor, no icterus, cyanosis, status post cardiac catheterization, site without hematoma. HEENT: AT/NC, EOMI, PERRLA, MMM. Lungs: CTA bilaterally, moderate effort, mild decrease BL bases, no rales, ronchi or wheezing. Heart: Regular rate and rhythm; no gallop, rub audible. Abdomen: soft, obese, NTTP, ND, normal BS. Extremities: no cyanosis, clubbing, or edema. Neurological: patient awake, alert, oriented x 3; cognitive function intact; pupils equally reactive to light and accomodation; cranial nerves II-XII grossly normal, moving all 4 extremities, no focal deficits, strength mildly global decrease secondary to acute presentation, improving. Psychiatric: affect appears normal, no acute evidence of depressive or anxiety feelings. Vitals/I&O's: Vital Signs Temp Pulse Resp BP Pulse Ox 98.1 F 82 22 H 112/78 94 04/23/20 04:00 04/23/20 06:00 04/23/20 06:00 04/23/20 06:00 04/23/20 04:00 Oxygen Flow Rate (L/min) 1 Oxygen Delivery Method Nasal Cannula Weight: 234 lb 2.095 oz Body Mass Index (BMI) 33.5 Intake and Output for Last 24 Hours 04/21/20 04/22/20 04/23/20 23:59 23:59 23:59 Intake Total 622.83 / 622.83 2530.00 / 2630.00 100 / 100 Output Total 1225 / 1225 1800 / 2300 1150 / 1150 Balance -602.17 / -602.17 730.00 / 330.00 -1050 / -1050 Laboratory Results 04/22/20 03:55: Hemoglobin A1c 8.5 H 04/22/20 08:08: POC Glucose 163 H 04/22/20 11:31: POC Glucose 174 H 04/22/20 17:01: POC Glucose 187 H 04/22/20 20:41: POC Glucose 221 H 04/23/20 03:55: WBC 14.2 H, RBC 4.49 L, Hgb 13.7, Hct 40.6, MCV 90.4, MCH 30.5, MCHC 33.7, RDW Std Deviation 43.0, RDW Coeff of Shauna 13.1, Plt Count 259, MPV 10.6 Current Medications Aspirin (Ecotrin) 81 mg PO DAILY@0800 [facility] Last Admin: 04/22/20 08:18 Dose: 81 mg Documented by: Atorvastatin Calcium (Lipitor) 40 mg PO QHS [facility] Last Admin: 04/22/20 21:23 Dose: 40 mg Documented by: Atropine Sulfate () 0.5 mg IV UD PRN PRN Reason: HR <50 bpm Carvedilol (Coreg) 6.25 mg PO BID [facility] Last Admin: 04/22/20 21:22 Dose: 6.25 mg Documented by: Dextrose (D50w Syringe) 0 gm IV X1 PRN; Protocol PRN Reason: Hypoglycemia Enoxaparin Sodium (Lovenox) 40 mg SC DAILY [facility] Last Admin: 04/22/20 08:19 Dose: Not Given Documented by: Glucagon () 1 mg IM .X1 PRN PRN Reason: Hypoglycemia Heparin Sodium (Beef Lung) (Heparin 500 Unit/5 Ml (100/Ml)) 500 unit IV UD PRN PRN Reason: HEPARIN FLUSH Insulin Human Lispro (Humalog Kwikpen (Bkc)) 0 unit SC TIDAC [facility]; Protocol Last Admin: 04/22/20 17:03 Dose: 3 u Documented by: Labetalol HCl (Trandate) 5 mg IV X1 PRN PRN Reason: SBP > 160 when pulling sheath Stop: 04/23/20 12:55 Lisinopril (Zestril) 5 mg PO DAILY [facility] Last Admin: 04/22/20 08:18 Dose: 5 mg Documented by: Morphine Sulfate () 2 mg IV Q3H PRN PRN PRN Reason: Pain Score 6-10/10 Ondansetron HCl (Zofran) 4 mg IV Q8H PRN PRN PRN Reason: NAUSEA Oxycodone HCl (Oxyir) 5 - 10 mg PO Q4H PRN PRN PRN Reason: Pain Score 6-10/10 Last Admin: 04/21/20 20:19 Dose: 5 mg Documented by: Sodium Chloride () 500 ml IV BOLUS PRN PRN Reason: VASO-VAGAL PROTOCOL Sodium Chloride () 10 - 40 ml IV UD PRN PRN Reason: SALINE FLUSH Last Admin: 04/21/20 18:16 Dose: 10 ml Documented by: Ticagrelor (Brilinta) 90 mg PO BID [facility] Last Admin: 04/22/20 21:23 Dose: 90 mg Documented by: STROKE Vital Signs/Narrative: Vital Signs Temp Pulse Resp BP Pulse Ox 04/23/20 06:00 82 22 H 112/78 04/23/20 05:00 88 20 H 112/74 04/23/20 04:00 98.1 F 81 21 H 104/70 94 04/23/20 03:41 87 Medical Necessity - Tobacco Use Smoking Status: Heavy Smoker (>10/day) Tobacco Use: Cigarettes Assessment/Plan All Active Problems (Last Reviewed 04/21/20 @ 14:[address] Carlos Kaufman, DO) Acute anterior wall [place] (Acute 04/21/20) STEMI (ST elevation myocardial infarction) (Acute 04/21/20) History of coronary artery stent placement (Acute 04/21/20) Atherosclerotic heart disease [place] coronary artery w/angina pectoris (Acute) Ischemic cardiomyopathy (Acute) The patient is a 54 y/o M w/ PMHx: HTN, HLD, Tobacco use, Obesity who presents to the [facility] ED on 04/21/20 with history of onset midsternal chest discomfort radiating toward his back with paresthesias to left upper extremity with associated dyspnea and diaphoresis with ED EKG with anterior ST elevation ME evident. 1. Chest Pain w/ Acute Anterior STEMI with severe LV dysfunction/Ischemic Cardiomyopathy: EKG in ED w/ anterior ST elevations, CXR w/ no acute cardiopulmonary findings. Trop elevated, 13.7 initially with repeats further elevated. Patient transition from the ED to the Internist with intervention with thrombectomy and TAMERA placement to the LAD with initiation of aspirin, Brilinta, statin, low-dose Coreg and lisinopril. Following intervention patient transition to the ICU, given clinical improvement plan transfer to PCU 04/23/2020, continue cardiac telemetry monitoring, continue medical therapy as noted however patient with low S BP however M AP remains appropriate but will closely monitor and if any onset of lightheadedness or dizziness we will decrease patient lisinopril and Coreg regimen. Patient with significant LV dysfunction therefore ideal to continue Coreg and lisinopril if able to tolerate. FLP with total cholesterol 204, triglycerides 181, LDL 148, VLDL 36, HDL 20. Echo ordered and pending with noted EF 15% from catheterization and likely will need repeat in 6 weeks to assess for AICD needs. ASA, NG, morphine. Per discussions with cardiology if remains clinically appropriate and no necessary regimen changes would plan discharge 04/24/2020. 2. Hypertension: Continue regimen including low-dose Coreg and lisinopril if able to tolerate given significant severe LV dysfunction however if necessary may need to decrease, PRN hydralazine. 3. Hyperlipidemia: Initiated high-dose statin as noted, FLP with total cholesterol 204, triglycerides 181, LDL 148, VLDL 36, HDL 20. 4. Hyperglycemia with New Onset Diabetes mellitus type II: Patient with noted hyperglycemia upon presentation, hemoglobin A1c 8.5%, nutrition consulted for education and teaching, maintained on insulin sliding scale with Accu-Cheks, plan initiation of metformin oral regimen upon discharge with close primary care follow-up. 5. Obesity: Weight loss and lifestyle changes encouraged. 6. Tobacco Abuse: Encouraged cessation, inpatient consultation per RT, NR if desired. 7. DVT prophylaxis: SCDs, Lovenox. Inpatient E&M: [id number] [facility] Hosp L3
[2020-04-23 07:46] LABS: ALB/GLOB Ratio 0.7 RATIO (0.9-2.4); AST(SGOT) 91 U/L (15-37); Alanine Aminotransfer ALT/SGPT 39 U/L (16-61); Albumin, Serum 2.7 g/dL (3.2-5.0); Alkaline Phosphatase 87 U/L (45-117); Anion Gap 9 (5-15); BUN 17 mg/dL (7-18); BUN/Creat Ratio 20.7 RATIO (10-20); Calcium,Total 8.2 mg/dL (8.5-10.1); Chloride 101 mmol/L (98-107); Creatinine, Serum 0.82 mg/dL (0.70-1.30); EST Glomerular Filtration Rate 104 mL/min (>60); Est Glom Filt Rate - Afr Amer 126 mL/min (>60); Estimated Creatinine Clearance 107.57 ml/min; Globulin 3.9 g/dL (2.2-4.2); Glucose 170 mg/dL (74-106); Magnesium 1.8 mg/dL (1.6-2.6); Potassium 3.8 mmol/L (3.5-5.1); Protein, Total 6.6 g/dL (6.4-8.2); Sodium Level 133 mmol/L (136-145)
[2020-04-23] MEDS: Aspirin E.C. 81 MG Tablet PO (08:24)
[2020-04-23] MEDS: TICAGRELOR 90 MG TABLET PO ×2 (08:24→21:30)
[2020-04-23] MEDS: Insulin Lispro 100 UNIT/ML INSULN.PEN SC ×2 (08:35→12:17)
[2020-04-23 08:45] LABS: Bedside Glucose 158 mg/dL (70-110)
--- NOTE | 2020-04-23 10:00 | EKG12_ITS ---
Test Reason : POST PCI Blood Pressure : / mmHG Vent. Rate : 106 BPM Atrial Rate : 106 BPM P-R Int : 142 ms QRS Dur : 100 ms QT Int : 354 ms P-R-T Axes : 045 070 001 degrees QTc Int : 470 ms Sinus tachycardia Anterior infarct , possibly acute T wave abnormality, consider lateral ischemia * ACUTE [place] Abnormal ECG Confirmed by JULSE ESCAMILLA, CRESENCIO ([id number]), associate editor HENRIETTA DUKE ([id number]) on 04/25/2020 1:16:59 PM Referred By: GILMA Confirmed By:CRESENCIO VICENTE MD
[2020-04-23] MEDS: Carvedilol 6.25 MG Tablet PO ×2 (10:41→21:30)
[2020-04-23] MEDS: Lisinopril 5 MG Tablet PO (10:42)
[2020-04-23 12:25] LABS: Bedside Glucose 242 mg/dL (70-110)
--- NOTE | 2020-04-23 13:50 | CRPHASE1 ---
Patient Communication PHII Cardiac Rehab Discussed with Patient:: Yes Guide to Cardiac Rehab Given to Patient:: Yes Cardiac Rehab Facility Choice List Given to Patient:: Yes - pt chooses [facility] Choice Program [facility] CR PHII:: Communication Given to CR, Refer to [facility] [place] Luggage:: Alicia Grimm Phase II Cardiac Rehab:: Yes Sessions:: 36 sessions - 3 days/wk, 12 weeks Risk Factors/Lifestyle Smoking Status: Current every day smoker Hx Obesity: Yes Height: 5 ft 10 in Weight:: 106.141 kg BMI: 33.5 Laboratory Values: Cardiac Rehab Phase I Labs Hemoglobin A1c 8.5 % (3.8-5.6) H 04/22/20 03:55 Triglycerides 181 mg/dL (-199) 04/22/20 03:55 Cholesterol 204 mg/dL (200) H 04/22/20 03:55 LDL Cholesterol 148 mg/dL (0-130) H 04/22/20 03:55 HDL Cholesterol 20 mg/dL (40-) L 04/22/20 03:55 Hospital Course Cardiac Cath Date:: 04/21/20 Cardiac Rehabilitation Info Cardiac Rehabilitation Program Information: Cardiac Rehabilitation is important for patients like you who are recovering from a heart problem. Cardiac rehabilitation programs are recognized as integral to the continued care of the patient with coronary heart disease. The cardiac rehabilitation program is designed to optimize a patient's physical, psychological, and social functioning. Health patient care provider work in cardiac rehabilitation programs and assist you with getting the treatments you need to get stronger and healthier - like exercise, healthy eating habits, and medications. Cardiac rehabilitation has been show to help people with heart problems live longer and have better life enjoyment than people who do not go to cardiac rehabilitation. Please contact the Cardiac Rehabilitation Program at [facility] at in two weeks if you have not heard from them.
--- NOTE | 2020-04-23 13:53 | CRPH1.INSTRU ---
General Education CAD and cardiac anatomy and function:: Patient communicates acknowledgment Explanation of diagnoses and procedures:: Patient communicates acknowledgment Sign/Symptoms of NM:: Patient communicates acknowledgment Antiplatelet therapy: Patient communicates acknowledgment Proper use of NTG-SL: Not instructed Emergency procedures and activation of EMS: Patient communicates acknowledgment Compliance of all prescribed medications: Patient communicates acknowledgment Smoking Patient Nicotine/Smoking Risk Factors Are:: Cigarettes Nicotine/Smoking Response Code:: Patient communicates acknowledgment Dyslipidemia Dyslipidemia Response Code:: Patient communicates acknowledgment Overweight/Obesity Patient Overweight/Obesity Risk Factors Are:: BMI Normal [18-25 & < 65 years old], Obesity - > or = 30 Recommendations Include:: Weight loss of 5-10%, Reduced calorie diet, Exercise 5-7 times/week Overweight/Obesity:: Patient communicates acknowledgment Hypertension Hypertension:: Patient communicates acknowledgment Heart Disease Heart Disease Response Code:: Patient communicates acknowledgment Diabetes Diabetes:: Patient communicates acknowledgment Metabolic Syndrome Metabolic Syndrome Response Code:: Patient communicates acknowledgment Sedentary Sedentary Response Code:: Patient communicates acknowledgment Stress Stress Response Code:: Patient communicates acknowledgment
[2020-04-23 17:36] LABS: Bedside Glucose 117 mg/dL (70-110)
[2020-04-23] MEDS: Atorvastatin Calcium 40 MG Tablet PO (21:30)
[2020-04-23 21:40] LABS: Bedside Glucose 236 mg/dL (70-110)
[2020-04-24 03:02] VITALS: PULSE 74
[2020-04-24 03:19] VITALS: BP 116/65; PULSE 83; RESP 19; TEMP 36.9; O2SAT 95
[2020-04-24 04:18] VITALS: PULSE 74
[2020-04-24 06:37] LABS: Absolute Neutrophil Count 7.9 X10^3/uL (2.0-7.7); Basophil# 0.05 X10^3/uL; Basophil% 0.4 % (0-1); Eosinophil# 0.23 X10^3/uL; Eosinophils% 1.9 % (0-5); Hematocrit 42.4 % (40-54); Lymphocyte % 21.7 % (19-41); Mean Corpuscular Hgb 30.3 pg (27.0-32.0); Mean Corpuscular Volume 91.8 fL (80-94); Mean Platelet Vol. 10.5 fl (6.2-12.0); Monocyte# 1.16 X10^3/uL; Monocyte% 9.7 % (0-10); NRBC Flagged by Analyzer 0 % (0-5); Neutrophil % 65.8 % (47-70); Platelet Count 265 K/mm3 (150-450); RBC Distribution Width SD 43.5 fl (35.1-43.9); Red Blood Count 4.62 M/mm3 (4.6-6.2)
[2020-04-24] MEDS: Insulin Lispro 100 UNIT/ML INSULN.PEN SC (06:37)
[2020-04-24 06:48] VITALS: PULSE 78
[2020-04-24 06:55] LABS: Bedside Glucose 165 mg/dL (70-110)
[2020-04-24 07:02] LABS: ALB/GLOB Ratio 0.6 RATIO (0.9-2.4); AST(SGOT) 47 U/L (15-37); Alanine Aminotransfer ALT/SGPT 31 U/L (16-61); Alkaline Phosphatase 101 U/L (45-117); Anion Gap 9 (5-15); BUN 17 mg/dL (7-18); BUN/Creat Ratio 19.3 RATIO (10-20); Calcium,Total 8.7 mg/dL (8.5-10.1); Chloride 101 mmol/L (98-107); Creatinine, Serum 0.88 mg/dL (0.70-1.30); EST Glomerular Filtration Rate 96 mL/min (>60); Est Glom Filt Rate - Afr Amer 117 mL/min (>60); Estimated Creatinine Clearance 100.24 ml/min; Globulin 4.7 g/dL (2.2-4.2); Glucose 162 mg/dL (74-106); Potassium 4.2 mmol/L (3.5-5.1); Protein, Total 7.7 g/dL (6.4-8.2); Sodium Level 132 mmol/L (136-145)
--- NOTE | 2020-04-24 08:42 | DCINST_ITS ---
- Discharge Diagnoses Current Active Problems: Current Active and Chronic Problems (Last Reviewed 04/21/20 @ 14:[address] Carlos Kaufman, DO) 1. Chest Pain w/ Acute Anterior STEMI with severe LV dysfunction/Ischemic Cardiomyopathy 2. Hypertension 3. Hyperlipidemia 4. Hyperglycemia with New Onset Diabetes mellitus type II 5. Obesity 6. Tobacco Abuse You will use the following diet at home:: Calorie/Carbohydrate Controlled (specify 1200, 1400, etc) Your food should be the consistency of: Regular Your liquids should be the consistency of: Regular/Thin Discharge Activity: - - See discharge instructions. May resume sexual activity in: - - May resume as noted in discharge instructions. Weight Bearing Status: Weight bearing as tolerated Call your doctor if your incision/area has: Continuous Slow Oozing, Sudden Increased Bleeding, Increased Pain/ Swelling, Increased Redness, Foul Smelling Discharge, Swelling at the incision site Call your doctor if you observe: Fever of 101 or Higher, Inability to urinate, Inability to have a bowel movement, Shortness of breath, Dizziness, Fainting spells, Chest pain, Uncontrolled pain Instructions: Symptoms of a Heart Attack, First Aid: Heart Attacks, Heart Attack, Coronary Stents, Taking Blood Thinners After Percutaneous Coronary Intervention (PCI), Follow-up Appointment After Percutaneous Coronary Intervention (PCI), Lifestyle Management After Percutaneous Coronary Intervention (PCI), Exercising Safely After Percutaneous Coronary Intervention (PCI), What Is Type 2 Diabetes?, Hyperglycemia (High Blood Sugar), Long-Term Complications of Diabetes, Diabetes and Heart Disease, Oral Therapy for Type 2 Diabetes, Healthy Meals for Diabetes, Using a Blood Sugar Log, Why Do You Smoke?, Planning to Quit Smoking, Getting Support for Quitting Smoking Additional Instructions: CARDIOLOGY PCI CATH INSTRUCTIONS. Lifting: Must be less than 5 lbs for 5 days, No restrictions after 14 days. Shower: Yes. Climb stairs: Yes. Bathing in tub or submerged water: No, until cleared per Cardiology at follow-up (call office if any concerns [phone] and may leave voicemail if after hours). Walkin minutes 3 times daily, increase as tolerated. Driving: Resume in 7 days. Sexual activity: Resume in 14 days. Regular activity: Resume 14 days. Please assure you maintain appropriate cardiac follow-up as you may need a repeat echocardiogram to learn if any further interventions are needed. Please continue your newly initiated cardiac medications however if you have any lightheadedness or seen us please immediately notify the cardiology office and this regimen may be decreased. You have been given 1 month of your cardiac medications and 1 refill. DO NOT let these medications run out. Please contact the cardiology office if any concerns about further refills. New Onset Diabetes Mellitus type II: During admission it was noted that your blood sugars were elevated and you have been diagnosed as a new onset diabetes mellitus type 2. We have started you at discharge on oral diabetic medicine which likely will need to be increased and closely followed by your primary care physician. You have been prescribed as well a glucometer and it is important that you begin to learn how to use this and keep a log of your blood sugars. Please start with blood sugar check before your largest meal and at bedtime 1-2x weekly to ascertain a baseline until further recommendations per your primary care physician. Suspected Underlying COPD: Once you have improved from recent acute events please arrange pulmonary function testing with your primary care physician. Allergies/Adverse Reactions: Allergies No Known Allergies Allergy (Verified 04/21/20 11:41) Medications to take at Discharge Albuterol IH (ProAir) [Proair Hfa] 1 puff INHALATION Q4H PRN PRN #1 inhaler 04/24/20 Aspirin E.C. [Ecotrin] 81 mg PO DAILY@0800 #30 tab 04/24/20 Atorvastatin Calcium [Lipitor] 40 mg PO QHS #30 tab 04/24/20 Carvedilol [Coreg (Beta Franco)] 6.25 mg PO BID #60 tab 04/24/20 Lisinopril [Zestril] 5 mg PO DAILY #30 tab 04/24/20 Metformin HCl 500 mg PO BID #60 tab 04/24/20 Ticagrelor [Brilinta] 90 mg PO BID #60 tab 04/24/20 The following prescriptions were given: Ticagrelor [Brilinta] 90 mg PO BID #60 tab Transmission Status: Pending to [facility] Carvedilol [Coreg (Beta Franco)] 6.25 mg PO BID #60 tab Transmission Status: Pending to [facility] Aspirin E.C. [Ecotrin] 81 mg PO DAILY@0800 #30 tab Transmission Status: Pending to [facility] Atorvastatin Calcium [Lipitor] 40 mg PO QHS #30 tab Transmission Status: Pending to [facility] Metformin HCl 500 mg PO BID #60 tab Transmission Status: Pending to [facility] Albuterol IH (ProAir) [Proair Hfa] 1 puff INHALATION Q4H PRN PRN #1 inhaler PRN Reason: Dyspnea, wheezing Transmission Status: Pending to [facility] Lisinopril [Zestril] 5 mg PO DAILY #30 tab Transmission Status: Pending to [facility] Orders to be completed after discharge: Glucometer Location: None Selected Phase II, Outpatient Cardiac Rehab Location: None Selected Primary Care Physician: Lisa Souza MD [STAFF PHYSICIAN] - Please follow up with your Primary Care Physician in: Please follow-up within 3- 5 days to review admission. Test Results: Test results from this visit will be discussed in further detail at your follow- up appointment, if applicable. Please Follow Up With: Alicia Grimm MD When: Follow-up 1 week or per Cardiology recommendation. Proposed Discharge Date: 04/24/20
[2020-04-24 08:55] VITALS: BP 107/68; PULSE 85; RESP 20; TEMP 36.8; O2SAT 94
[2020-04-24] MEDS: TICAGRELOR 90 MG TABLET PO (08:58)
[2020-04-24] MEDS: Aspirin E.C. 81 MG Tablet PO (08:58)
[2020-04-24] MEDS: Carvedilol 6.25 MG Tablet PO (08:58)
[2020-04-24] MEDS: Lisinopril 5 MG Tablet PO (08:58)
--- NOTE | 2020-04-24 09:06 | DS.PCM_ITS ---
Discharge Date and Diagnosis Date of Admission: 04/21/20 Date of Discharge: 04/24/20 - Primary Discharge Diagnosis Acute Problems: Active Problems (Last Reviewed 04/21/20 @ 14:[address] Carlos Kaufman, ) 1. Chest Pain w/ Acute Anterior STEMI with severe LV dysfunction/Ischemic Ca rdiomyopathy 2. Hypertension 3. Hyperlipidemia 4. Hyperglycemia with New Onset Diabetes mellitus type II 5. Obesity 6. Tobacco Abuse - Secondary Discharge Diagnosis Chronic Problems: Chronic Problems (Last Reviewed 04/21/20 @ 14:[address] Carlos Kaufman DO) Nicotine dependence (Chronic) Obesity (Chronic) Hospital Course and Treatment Cardiology Dr. Grimm Operations: None Procedures: 2-D Echocardiogram, Cardiac catheterization, EKG Summary of Care Provided: The patient is a 54 y/o M w/ PMHx: HTN, HLD, Tobacco use, Obesity who presents to the [facility] ED on 04/21/20 with history of onset midsternal chest discomfort radiating toward his back with paresthesias to left upper extremity with associated dyspnea and diaphoresis with ED EKG with anterior ST elevation NM evident. ED evaluation included EKG in ED w/ anterior ST elevations, CXR w/ no a cute cardiopulmonary findings, Trop elevated, 13.7 initially with repeats further elevated. Patient transition from the ED to the [employer] with intervention with thrombectomy and TAMERA placement to the LAD with initiation of aspirin, Brilinta, statin, low-dose Coreg and lisinopril. Following intervention patient transition to the ICU initially, however, following clinical improvement patient transitioned to PCU 04/23/2020, continued cardiac telemetry monitoring during admission with episode NSVT and 2 second pause, asymptomatic, continued medical therapy with asa, brillinta, lisinopril and Coreg regimen. FLP with total cholesterol 204, triglycerides 181, LDL 148, VLDL 36, HDL 20. Echocardiogram resulted with EF 35%, evidence stage I diastolic dysfunction, severe hypokinesis of the apex, anterior wall and septum. Noted EF 15% from catheterization with planned repeat outpatient ECHO to assess for AICD needs. Patient with noted hyperglycemia upon presentation, hemoglobin A1c 8.5%, nutrition consulted for education and teaching, maintained on insulin sliding scale with Accu-Cheks with initiation of metformin oral regimen upon discharge with close primary care follow-up. Encouraged cessation, inpatient consultation per RT, NR if desired. Upon discharge encourage patient also to follow-up closely with primary care physician to have pulmonary function testing once clinically improved from current presentation. DAY OF DISCHARGE PROGRESS NOTE: Subjective: Patient without acute event overnight per self and nursing report except noted asymptomatic 2-second sinus pause. Patient denies fever, chills, nausea, emesis, abdominal pain, recurrent or worsened chest pain or dyspnea. Patient noted able to ambulate with greater ease as had had some dyspnea the day prior. Patient agreeable to discharge to home. Patient will be discharged with follow-up with primary care physician within 3-5 days in addition to cardiology within 1 week or per the discretion. Objective: T 98.3, heart rate 85, BP 107/68, respiratory rate 20, 94% on room air. Physical Examination: General: awake, alert, oriented x 3 and cooperative, seated upright in the PCU bed, NAD, denies any recurrent chest discomfort. Skin: normal color, turgor, no icterus, cyanosis except noted bruising to the right wrist at catheterization site. HEENT: AT/NC, EOMI, PERRLA, MMM. Lungs: CTA bilaterally, moderate effort, mild decrease BL bases, no rales, ronchi or wheezing; Heart: Regular rate and rhythm; no gallop, rub audible. Abdomen: soft, NTTP, ND, normal BS. Extremities: no cyanosis, clubbing, or edema. Neurological: patient awake, alert, oriented x 3; cognitive function appears intact upon questioning,; pupils equally reactive to light and accomodation; cranial nerves II-XII grossly normal, moving all 4 extremities, strength improved, mildly global decrease given recent acute presentation. Psychiatric: affect appears moved, more interactive, normal, no acute evidence of depressive or anxiety feelings. Assessment and Plan: Please see hospital summary above. - Physical Exam Vitals/I&O's: Vital Signs Temp Pulse Resp BP Pulse Ox 98.3 F 85 20 H 107/68 94 04/24/20 08:55 04/24/20 08:55 04/24/20 08:55 04/24/20 08:55 04/24/20 08:55 Oxygen Flow Rate (L/min) 2 Oxygen Delivery Method Room Air Weight: 226 lb 3.108 oz Body Mass Index (BMI) 33.5 Intake and Output for Last 24 Hours 06/04/23/20 04/24/20 23:59 23:59 23:59 Intake Total 2530.00 / 2630.00 1340 / 1340 0 / 0 Output Total 1800 / 2300 1425 / 1425 Balance 730.00 / 330.00 -85 / -85 0 / 0 Laboratory Results 04/23/20 12:16: POC Glucose 242 H 04/23/20 17:20: POC Glucose 117 H 04/23/20 21:28: POC Glucose 236 H 04/24/20 06:10: WBC 12.0 H, RBC 4.62, Hgb 14.0, Hct 42.4, MCV 91.8, MCH 30.3, MCHC 33.0, RDW Std Deviation 43.5, RDW Coeff of Shauna 13.0, Plt Count 265, MPV 10.5, Immature Gran % (Auto) 0.500, Neut % (Auto) 65.8, Lymph % (Auto) 21.7, [place] % (Auto) 9.7, Eos % (Auto) 1.9, Baso % (Auto) 0.4, Absolute Neuts (auto) 7.9 H, Absolute Lymphs (auto) 2.60, Nucleated RBC % 0 04/24/20 06:10: Sodium 132 L, Potassium 4.2, Chloride 101, Carbon Dioxide 22.0, Anion Gap 9, BUN 17, Creatinine 0.88, Estim Creat Clear Calc 100.24, Est GFR (MDRD) Af Amer 117, Est GFR (MDRD) Non-Af 96, BUN/Creatinine Ratio 19.3, Glucose 162 H, Calcium 8.7, Total Bilirubin 0.60, AST 47 H, ALT 31, Alkaline Phosphatase 101, Total Protein 7.7, Albumin 3.0 L, Globulin 4.7 H, Albumin/Globulin Ratio 0.6 L 04/24/20 06:35: POC Glucose 165 H Current Medications Albuterol Sulfate (Ventolin Aerosols) 2.5 mg INHALATION Q2H PRN PRN PRN Reason: Dyspnea, wheezing Aspirin (Ecotrin) 81 mg PO DAILY@0800 [facility] Last Admin: 04/24/20 08:58 Dose: 81 mg Documented by: Atorvastatin Calcium (Lipitor) 40 mg PO QHS [facility] Last Admin: 04/23/20 21:30 Dose: 40 mg Documented by: Atropine Sulfate () 0.5 mg IV UD PRN PRN Reason: HR <50 bpm Carvedilol (Coreg) 6.25 mg PO BID [facility] Last Admin: 04/24/20 08:58 Dose: 6.25 mg Documented by: Dextrose (D50w Syringe) 0 gm IV X1 PRN; Protocol PRN Reason: Hypoglycemia Enoxaparin Sodium (Lovenox) 40 mg SC DAILY [facility] Last Admin: 04/24/20 08:58 Dose: Not Given Documented by: Glucagon () 1 mg IM .X1 PRN PRN Reason: Hypoglycemia Heparin Sodium (Beef Lung) (Heparin 500 Unit/5 Ml (100/Ml)) 500 unit IV UD PRN PRN Reason: HEPARIN FLUSH Insulin Human Lispro (Humalog Kwikpen (Bkc)) 0 unit SC TIDAC [facility]; Protocol Last Admin: 04/24/20 06:37 Dose: 3 u Documented by: Lisinopril (Zestril) 5 mg PO DAILY [facility] Last Admin: 04/24/20 08:58 Dose: 5 mg Documented by: Morphine Sulfate () 2 mg IV Q3H PRN PRN PRN Reason: Pain Score 6-10/10 Ondansetron HCl (Zofran) 4 mg IV Q8H PRN PRN PRN Reason: NAUSEA Oxycodone HCl (Oxyir) 5 - 10 mg PO Q4H PRN PRN PRN Reason: Pain Score 6-10/10 Last Admin: 04/21/20 20:19 Dose: 5 mg Documented by: Sodium Chloride () 500 ml IV BOLUS PRN PRN Reason: VASO-VAGAL PROTOCOL Sodium Chloride () 10 - 40 ml IV UD PRN PRN Reason: SALINE FLUSH Last Admin: 04/21/20 18:16 Dose: 10 ml Documented by: Ticagrelor (Brilinta) 90 mg PO BID [facility] Last Admin: 04/24/20 08:58 Dose: 90 mg Documented by: Discharge Activity: - - See discharge instructions. May resume sexual activity in: - - May resume as noted in discharge instructions. Weight Bearing Status: Weight bearing as tolerated Call your doctor if your incision/area has: Continuous Slow Oozing, Sudden Increased Bleeding, Increased Pain/ Swelling, Increased Redness, Foul Smelling Discharge, Swelling at the incision site Call your doctor if you observe: Fever of 101 or Higher, Inability to urinate, Inability to have a bowel movement, Shortness of breath, Dizziness, Fainting spells, Chest pain, Uncontrolled pain Home Medications: Medications to take at Discharge Albuterol IH (ProAir) [Proair Hfa] 1 puff INHALATION Q4H PRN PRN #1 inhaler 04/24/20 Aspirin E.C. [Ecotrin] 81 mg PO DAILY@0800 #30 tab 04/24/20 Atorvastatin Calcium [Lipitor] 40 mg PO QHS #30 tab 04/24/20 Carvedilol [Coreg (Beta Franco)] 6.25 mg PO BID #60 tab 04/24/20 Lisinopril [Zestril] 5 mg PO DAILY #30 tab 04/24/20 Metformin HCl 500 mg PO BID #60 tab 04/24/20 Ticagrelor [Brilinta] 90 mg PO BID #60 tab 04/24/20 Following Prescrptions Were Given to Patient: Ticagrelor [Brilinta] 90 mg PO BID #60 tab Transmission Status: Received by [facility] Carvedilol [Coreg (Beta Franco)] 6.25 mg PO BID #60 tab Transmission Status: Received by [facility] Aspirin E.C. [Ecotrin] 81 mg PO DAILY@0800 #30 tab Transmission Status: Received by [facility] Atorvastatin Calcium [Lipitor] 40 mg PO QHS #30 tab Transmission Status: Received by [facility] Metformin HCl 500 mg PO BID #60 tab Transmission Status: Received by [facility] Albuterol IH (ProAir) [Proair Hfa] 1 puff INHALATION Q4H PRN PRN #1 inhaler PRN Reason: Dyspnea, wheezing Transmission Status: Received by [facility] Lisinopril [Zestril] 5 mg PO DAILY #30 tab Transmission Status: Received by [facility] Other Amb Orders: Glucometer Location: None Selected Phase II, Outpatient Cardiac Rehab Location: None Selected Primary Care Physician: Lisa Souza MD [STAFF PHYSICIAN] - Please follow up with your Primary Care Physician in: Please follow-up within 3- 5 days to review admission. Please Follow Up With: Alicia Grimm MD When: Follow-up 1 week or per Cardiology recommendation. Patient Instructions: Using a Blood Sugar Log, Symptoms of a Heart Attack, Coronary Stents, Diabetes and Heart Disease, Long-Term Complications of Diabet es, Hyperglycemia (High Blood Sugar), What Is Type 2 Diabetes?, Oral Therapy for Type 2 Diabetes, Healthy Meals for Diabetes, First Aid: Heart Attacks, Why Do You Smoke?, Planning to Quit Smoking, Getting Support for Quitting Smoking, Heart Attack, Taking Blood Thinners After Percutaneous Coronary Intervention (PCI), Follow-up Appointment After Percutaneous Coronary Intervention (PCI), Lifestyle Management After Percutaneous Coronary Intervention (PCI), Exercising Safely After Percutaneous Coronary Intervention (PCI) Disposition: Home Minutes spent on discharge:: 35 Patient Condition:: Fair Medical Necessity - Tobacco Use Smoking Status: Current every day smoker Tobacco Use: Cigarettes Meaningful Use Info Meaningful Use Diagnoses (Choose all that apply): AMI - AMI/Post PCI/Angioplasty Aspirin given w/in 24hrs of arrival?: Yes ASA at discharge?: Yes Antiplatelet Therapy at Discharge:: Yes Statins at discharge?: Yes Chandrakant/ARB at discharge?: Yes Beta Franco at discharge?: Yes Done w/ Acute NM measure.: Yes Documented LVEF (%): 35 Inpatient E&M: [id number] Disch Hosp
--- NOTE | 2020-04-24 09:14 | PCA ---
Pt states that his , Rosalva, will make his follow-up apts.
--- NOTE | 2020-04-24 10:00 | EKG12_ITS ---
Test Reason : AM EKG Blood Pressure : / mmHG Vent. Rate : 085 BPM Atrial Rate : 085 BPM P-R Int : 154 ms QRS Dur : 106 ms QT Int : 360 ms P-R-T Axes : 044 079 019 degrees QTc Int : 428 ms Normal sinus rhythm Anterior infarct , possibly acute ACUTE PA / STEMI Abnormal ECG Confirmed by JULES ESCAMILLA, CRESENCIO ([id number]), senior editor HENRIETTA DUKE ([id number]) on 04/25/2020 1:12:02 PM Referred By: DR FLORES Confirmed By:CRESENCIO VICENTE MD
--- NOTE | 2020-04-24 10:02 | PHA.DC.MC ---
Pharmacy Service has performed discharge medication reconciliation and counseling for this patient. 1. ALBUTEROL INHALER 1 PUFF Q4H PRN DYSPNEA/WHEEZING 2. ASPIRIN 81MG PO DAILY 3. ATORVASTATIN 40MG PO QHS 4. CARVEDILOL 6.25MG PO BID 5. LISINOPRIL 5MG PO DAILY 6. METFORMIN 500MG PO BID 7. TICAGRELOR 90MG PO BID The patient's discharge medication list was reviewed for discrepancies and discrepancies were resolved. Home Medications Albuterol IH (ProAir) [Proair Hfa] 1 puff INHALATION Q4H PRN PRN #1 inhaler 04/24/20 Aspirin E.C. [Ecotrin] 81 mg PO DAILY@0800 #30 tab 04/24/20 Atorvastatin Calcium [Lipitor] 40 mg PO QHS #30 tab 04/24/20 Carvedilol [Coreg (Beta Franco)] 6.25 mg PO BID #60 tab 04/24/20 Lisinopril [Zestril] 5 mg PO DAILY #30 tab 04/24/20 Metformin HCl 500 mg PO BID #60 tab 04/24/20 Ticagrelor [Brilinta] 90 mg PO BID #60 tab 04/24/20 The patient was counseled on the following discharge medications and changes in medications for homegoing were reviewed. The Reason for Use, instructions for use, and potential side effects were reviewed for all new medications. The patient's questions regarding all of their medications were answered. The patient was able to verbally demonstrate an understanding of their discharge medications.
--- NOTE | 2020-04-24 10:45 | NURSING ---
discharge instructions reviewed with patient. on speakerphone during instruction. voiced understanding. meds to bed here at [facility]. waiting for to come for transport.
== END 2020-04-24 11:11 | disposition home or self-care (01) | DRG 247 ==
LOC: ED 11:36 → ICU 13:46 → PCU 04-23 14:55
PROVIDERS: Admitting Provider Specialist; Emergency Provider Emergency Medicine; Visit Provider Family Medicine
DX: I21.09 ST elevation (STEMI) myocardial infarction involving other coronary artery of anterior wall (principal); I25.5 Ischemic cardiomyopathy; E78.5 Hyperlipidemia, unspecified; E11.65 Type 2 diabetes mellitus with hyperglycemia; E66.9 Obesity, unspecified; F17.210 Nicotine dependence, cigarettes, uncomplicated; Z68.33 Body mass index [BMI] 33.0-33.9, adult; I25.119 Atherosclerotic heart disease of native coronary artery with unspecified angina pectoris; I11.9 Hypertensive heart disease without heart failure
CPT/HCPCS: 36415; 71045; 80048; 80053; 80061; 82962; 83036; 83735; 84443; 84484; 85025; 85027; 85610; 85730; 92941; 93005; 93306; 93458; 97803; 99284; 99406; J7030; Q9957; Q9967; A4216; C1725; C1757; C1769; C1874; C1887; C1894; C8929; C9606; J1327

== ENCOUNTER → 2020-04-27 12:59 | Outpatient (CLI) | payer OTHER, SELFPAY ==
[2020-04-21 13:00] VITALS: BMI 33.5
[2020-04-23 13:52] VITALS: BMI 33.5
--- NOTE | 2020-04-27 13:03 | CR.HP_ITS ---
CR - History & Physical - History of Present Cardiac Event Onset Date: Enter Onset Date of cardiac illnesses in Comment field below - Medications Home Medications: Ambulatory Orders Medication Instructions Recorded Albuterol IH (ProAir) [Proair Hfa] 1 puff INHALATION Q4H PRN PRN #1 04/24/20 inhaler Aspirin E.C. [Ecotrin] 81 mg PO DAILY@0800 #30 tab 04/24/20 Atorvastatin Calcium [Lipitor] 40 mg PO QHS #30 tab 04/24/20 Carvedilol [Coreg (Beta Franco)] 6.25 mg PO BID #60 tab 04/24/20 Lisinopril [Zestril] 5 mg PO DAILY #30 tab 04/24/20 Metformin HCl 500 mg PO BID #60 tab 04/24/20 Ticagrelor [Brilinta] 90 mg PO BID #60 tab 04/24/20 - Allergies Allergies/Adverse Reactions: Allergies No Known Allergies Allergy (Verified 04/21/20 11:41) Past Medical History - Past Medical Illness Medical History: Past Medical History (Last Reviewed 04/21/20 @ 14:[address] Carlos Kaufman, DO) STEMI (ST elevation myocardial infarction) (Acute) Onset Date: 04/21/20 I21.3 Atherosclerotic heart disease [place] coronary artery w/angina pectoris (Acute) I25.119 Ischemic cardiomyopathy (Acute) I25.5 - Past Surgical History Surgical History: Past Surgical History (Last Updated 04/21/20 @ 13:57 by Molly Ozuna) History of coronary artery stent placement (Acute) Onset Date: 04/21/20 Z95.5 PCI-Thrombectomy and TAMERA-Prox LAD w/ 2.75 x 20 mm Synergy Stent 04/21/2020
== END ==
PROVIDERS: Referring Provider Specialist; Visit Provider Specialist
DX: Z95.5 Presence of coronary angioplasty implant and graft (principal)

== ENCOUNTER → 2020-05-01 | Outpatient (CLI) | payer OTHER, SELFPAY ==
[2020-04-23 13:52] VITALS: BMI 33.5
[2020-05-01 09:59] VITALS: BMI 34.1
== END | disposition home or self-care (01) ==
LOC: PSN 11:32
PROVIDERS: Referring Provider Physician Assistant Medical; Visit Provider Physician Assistant Medical
DX: I25.5 Ischemic cardiomyopathy (principal); I25.119 Atherosclerotic heart disease of native coronary artery with unspecified angina pectoris
CPT/HCPCS: 93225; 93226

== ENCOUNTER → 2020-08-06 | Outpatient (CLI) | payer OTHER, SELFPAY ==
[2020-04-23 13:52] VITALS: BMI 33.5
[2020-05-01 09:59] VITALS: BMI 34.1
--- NOTE | 2020-08-09 15:33 | STRESSREP ---
Stress Test Report Date of procedure: 08/06/2020 Procedure: MUGA scan Findings: MUGA scan was performed with 27 mCi of technetium 99. Ejection fraction was estimated to be 34%. Conclusions: Left ventricular ejection fraction is 34%.
== END | disposition home or self-care (01) ==
LOC: NM 09:57
PROVIDERS: PCP Family Medicine; Referring Provider Physician Assistant Medical; Visit Provider Physician Assistant Medical
DX: I25.5 Ischemic cardiomyopathy (principal); I25.119 Atherosclerotic heart disease of native coronary artery with unspecified angina pectoris
CPT/HCPCS: 78472; A9560

== ENCOUNTER → 2020-08-08 | Outpatient (CLI) | payer OTHER, SELFPAY ==
[2020-04-23 13:52] VITALS: BMI 33.5
[2020-05-01 09:59] VITALS: BMI 34.1
[2020-08-08 10:07] LABS: Absolute Lymphocyte Count 2.55 X10^3/uL (0.83-4.51); Absolute Neutrophil Count 4.8 X10^3/uL (2.0-7.7); Basophil# 0.07 X10^3/uL; Basophil% 0.9 % (0-1); Eosinophil# 0.23 X10^3/uL; Eosinophils% 2.8 % (0-5); Hematocrit 44.7 % (40-54); Hemoglobin 14.9 g/dL (13.0-16.5); Lymphocyte # 2.55 X10^3/ul (4.0); Lymphocyte % 31.1 % (19-41); Mean Corp Hgb Conc 33.3 g/dL (32-36); Mean Corpuscular Volume 92.9 fL (80-94); Mean Platelet Vol. 10.5 fl (6.2-12.0); Monocyte# 0.55 X10^3/uL; Monocyte% 6.7 % (0-10); NRBC Flagged by Analyzer 0 % (0-5); Neutrophil # 4.78 X10^3/uL (2.7-7.7); Neutrophil % 58.3 % (47-70); Platelet Count 271 K/mm3 (150-450); RBC Distribution Width CV 14.2 % (11.6-14.6); RBC Distribution Width SD 48.7 fl (35.1-43.9); Red Blood Count 4.81 M/mm3 (4.6-6.2); White Blood Count 8.2 K/mm3 (4.4-11.0)
[2020-08-08 10:27] LABS: ALB/GLOB Ratio 0.9 RATIO (0.9-2.4); AST(SGOT) 9 U/L (15-37); Alanine Aminotransfer ALT/SGPT 19 U/L (16-61); Albumin, Serum 3.7 g/dL (3.2-5.0); Alkaline Phosphatase 114 U/L (45-117); Anion Gap 6 (5-15); BUN 16 mg/dL (7-18); BUN/Creat Ratio 16.3 RATIO (10-20); Chloride 106 mmol/L (98-107); Cholesterol 143 mg/dL (200); Creatinine, Serum 0.98 mg/dL (0.70-1.30); EST Glomerular Filtration Rate 84 mL/min (>60); Est Glom Filt Rate - Afr Amer 102 mL/min (>60); Globulin 4.2 g/dL (2.2-4.2); Glucose 164 mg/dL (74-106); High Density Lipoprotein 24 mg/dL; Potassium 4.4 mmol/L (3.5-5.1); Protein, Total 7.9 g/dL (6.4-8.2); Sodium Level 135 mmol/L (136-145); Triglycerides 155 mg/dL; Very Low Density Lipoprotein 31 mg/dL (5-40)
[2020-08-08 10:48] LABS: Hemoglobin A1c 6.6 % (3.8-5.6)
== END | disposition home or self-care (01) ==
LOC: MFPLAB 08:54
PROVIDERS: PCP Family Medicine; Referring Provider Family Medicine; Visit Provider Family Medicine
DX: E11.9 Type 2 diabetes mellitus without complications (principal); E78.5 Hyperlipidemia, unspecified; Z72.0 Tobacco use
CPT/HCPCS: 36415; 80053; 80061; 83036; 85025

== ENCOUNTER → 2020-08-10 | Outpatient (CLI) | payer OTHER, SELFPAY ==
[2020-04-23 13:52] VITALS: BMI 33.5
[2020-05-01 09:59] VITALS: BMI 34.1
--- NOTE | 2020-08-10 15:17 | STRESSREP ---
Stress Test Report Date: 08/10/2020 Procedure: Exercise tolerance test/imaging study Indications: CAD Consent: Per the patient Procedure: The patient exercised on a Fili protocol for 4 minutes and 6 seconds achieving a peak heart rate of 137 bpm (82% predicted maximal heart rate) with a peak blood pressure 162/84 mmHg and a peak MET capacity of 5.9 METs. The baseline ECG demonstrated normal sinus rhythm, evidence of prior anterolateral and inferior OR. The peak exercise ECG demonstrated no significant ischemic changes. EKG during recovery revealed no significant ischemic changes [There were no cardiac dysrhythmias pretest, during exercise, or recovery]. The functional capacity was considered decreased for age. There was [no complaint of chest discomfort during exercise or recovery]. The examination was discontinued secondary to dyspnea. Impression: 1. Stress test is negative for exercise-induced EKG changes of ischemia 2. The test test is negative for exercise-induced chest pain 3. Functional capacity is decreased for age 4. Nuclear images pending Myocardial perfusion imaging study: Technique: The patient was injected with 11 mCi of technetium 99m Cardiolite and subsequently rest SPECT Cardiolite nuclear imaging was obtained in the horizontal long, vertical long, and short axis views. The patient exercised on a Fili protocol. Please see above for details. The patient was injected with 33 mCi of technetium 99m Cardiolite and subsequently stress SPECT Cardiolite nuclear imaging was obtained in the horizontal long, vertical long, and short axis views. A gated Cardiolite study at peak stress was obtained. Interpretation: Rest and stress SPECT Cardiolite nuclear imaging status post realignment, normalization, and attenuation correction, demonstrates absent radioisotope uptake in the apex and inferior wall. The gated Cardiolite study demonstrates global hypokinesis. The reported LVEF is 29%. Impression: 1. There is no evidence of significant ischemia. Prior apical and possibly inferior myocardial infarction. 2. The gated Cardiolite study reports an LVEF of [29]%. This note was generated with [employer] software. It may contain incorrect words, spelling, and punctuation that were not noted in checking the note before signing.
== END | disposition home or self-care (01) ==
LOC: CVS 06:50
PROVIDERS: PCP Family Medicine; Referring Provider Physician Assistant Medical; Visit Provider Physician Assistant Medical
DX: I25.10 Atherosclerotic heart disease of native coronary artery without angina pectoris (principal); I21.3 ST elevation (STEMI) myocardial infarction of unspecified site; I25.5 Ischemic cardiomyopathy; Z95.5 Presence of coronary angioplasty implant and graft
CPT/HCPCS: 78452; 93017; A9500; A4216

== ENCOUNTER → 2020-11-26 15:53 | Outpatient (CLI) | payer OTHER, SELFPAY ==
[2020-04-23 13:52] VITALS: BMI 33.5
[2020-08-13 14:32] VITALS: BMI 34.5
[2020-11-26 18:39] LABS: Anion Gap 8 (5-15); BUN 22 mg/dL (7-18); BUN/Creat Ratio 17.6 RATIO (10-20); Calcium,Total 8.7 mg/dL (8.5-10.1); Chloride 102 mmol/L (98-107); Creatinine, Serum 1.25 mg/dL (0.70-1.30); EST Glomerular Filtration Rate 64 mL/min (>60); Est Glom Filt Rate - Afr Amer 77 mL/min (>60); Glucose 364 mg/dL (74-106); Potassium 4.3 mmol/L (3.5-5.1); Sodium Level 134 mmol/L (136-145)
[2020-11-26 18:51] LABS: Hemoglobin A1c 10.3 % (3.8-5.6)
== END ==
PROVIDERS: Nurse Practitioner Family; PCP Family Medicine; Visit Provider Family Medicine
DX: I10 Essential (primary) hypertension (principal); E11.9 Type 2 diabetes mellitus without complications
CPT/HCPCS: 36415; 80048; 83036

== ENCOUNTER 2020-12-06 11:30 | Outpatient (RCR) | payer OTHER, SELFPAY ==
[2020-04-23 13:52] VITALS: BMI 33.5
[2020-08-13 14:32] VITALS: BMI 34.5
== END 2020-12-06 23:59 | disposition home or self-care (01) ==
LOC: DC 11:30
PROVIDERS: PCP Family Medicine; Visit Provider Nurse Practitioner Family
DX: E11.9 Type 2 diabetes mellitus without complications (principal)
CPT/HCPCS: G0108

== ENCOUNTER → 2021-10-02 11:51 | Outpatient (CLI) | payer OTHER, SELFPAY ==
[2020-04-23 13:52] VITALS: BMI 33.5
[2021-10-02 15:16] LABS: Hematocrit 43.1 % (40-54); Mean Corp Hgb Conc 32.5 g/dL (32-36); Mean Corpuscular Hgb 29.9 pg (27.0-32.0); Mean Corpuscular Volume 92.1 fL (80-94); Mean Platelet Vol. 10.5 fl (6.2-12.0); Platelet Count 259 K/mm3 (150-450); RBC Distribution Width CV 13.5 % (11.6-14.6); RBC Distribution Width SD 45.9 fl (35.1-43.9); Red Blood Count 4.68 M/mm3 (4.6-6.2); White Blood Count 8.4 K/mm3 (4.4-11.0)
[2021-10-02 15:31] LABS: Anion Gap 9 (5-15); BUN 25 mg/dL (7-18); BUN/Creat Ratio 25.8 RATIO (10-20); Chloride 106 mmol/L (98-107); Cholesterol 116 mg/dL (200); Creatinine, Serum 0.97 mg/dL (0.70-1.30); EST Glomerular Filtration Rate 86 mL/min (>60); Est Glom Filt Rate - Afr Amer 103 mL/min (>60); Glucose 109 mg/dL (74-106); High Density Lipoprotein 25 mg/dL; Potassium 4.4 mmol/L (3.5-5.1); Sodium Level 138 mmol/L (136-145); Triglycerides 202 mg/dL; Very Low Density Lipoprotein 40 mg/dL (5-40)
== END ==
PROVIDERS: PCP Family Medicine; Referring Provider Family Medicine; Visit Provider Nurse Practitioner Family
DX: E11.69 Type 2 diabetes mellitus with other specified complication (principal)
CPT/HCPCS: 36415; 80048; 80061; 85027

== ENCOUNTER 2022-02-20 11:26 | Outpatient (CLI) | payer OTHER, SELFPAY ==
[2020-04-23 13:52] VITALS: BMI 33.5
[2022-02-20 14:59] LABS: Absolute Lymphocyte Count 2.39 X10^3/uL (0.83-4.51); Absolute Neutrophil Count 5.8 X10^3/uL (2.0-7.7); Basophil# 0.07 X10^3/uL; Basophil% 0.8 % (0-1); Eosinophil# 0.27 X10^3/uL; Hematocrit 44.5 % (40-54); Hemoglobin 14.8 g/dL (13.0-16.5); Lymphocyte # 2.39 X10^3/ul (0.83-4.51); Lymphocyte % 26.4 % (19-41); Mean Corp Hgb Conc 33.3 g/dL (32-36); Mean Corpuscular Volume 90.3 fL (80-94); Mean Platelet Vol. 10.2 fl (6.2-12.0); Monocyte# 0.53 X10^3/uL; Monocyte% 5.8 % (0-10); NRBC Flagged by Analyzer 0 % (0-5); Neutrophil # 5.78 X10^3/uL (2.7-7.7); Neutrophil % 63.8 % (47-70); Platelet Count 272 K/mm3 (150-450); RBC Distribution Width CV 13.7 % (11.6-14.6); RBC Distribution Width SD 45.9 fl (35.1-43.9); Red Blood Count 4.93 M/mm3 (4.6-6.2); White Blood Count 9.1 K/mm3 (4.4-11.0)
[2022-02-20 15:22] LABS: Hemoglobin A1c 6.8 % (3.8-5.6)
[2022-02-20 15:28] LABS: ALB/GLOB Ratio 0.9 RATIO (0.9-2.4); AST(SGOT) 12 U/L (15-37); Alanine Aminotransfer ALT/SGPT 20 U/L (16-61); Albumin, Serum 3.8 g/dL (3.2-5.0); Alkaline Phosphatase 87 U/L (45-117); Anion Gap 7 (5-15); BUN 26 mg/dL (7-18); BUN/Creat Ratio 23.4 RATIO (10-20); Calcium,Total 9.1 mg/dL (8.5-10.1); Chloride 103 mmol/L (98-107); Cholesterol 127 mg/dL (200); Creatinine, Serum 1.11 mg/dL (0.70-1.30); EST Glomerular Filtration Rate 73 mL/min (>60); Est Glom Filt Rate - Afr Amer 88 mL/min (>60); Globulin 4.3 g/dL (2.2-4.2); Glucose 183 mg/dL (74-106); High Density Lipoprotein 24 mg/dL; Potassium 4.3 mmol/L (3.5-5.1); Protein, Total 8.1 g/dL (6.4-8.2); Sodium Level 132 mmol/L (136-145); Triglycerides 400 mg/dL
== END 2022-02-20 23:59 | disposition home or self-care (01) ==
LOC: MFPLAB 11:27
PROVIDERS: PCP Family Medicine; Referring Provider Family Medicine; Visit Provider Family Medicine
DX: E11.59 Type 2 diabetes mellitus with other circulatory complications (principal); E11.69 Type 2 diabetes mellitus with other specified complication; Z72.0 Tobacco use
CPT/HCPCS: 36415; 80053; 80061; 83036; 85025

== ENCOUNTER → 2022-07-01 | Outpatient (CLI) | payer OTHER, SELFPAY ==
[2020-04-23 13:52] VITALS: BMI 33.5
[2022-07-01 18:18] LABS: Basophil# 0.08 X10^3/uL; Eosinophil# 0.54 X10^3/uL; Eosinophils% 6.7 % (0-5); Hematocrit 43.8 % (40-54); Hemoglobin 14.5 g/dL (13.0-16.5); Lymphocyte % 35.7 % (19-41); Mean Corp Hgb Conc 33.1 g/dL (32-36); Mean Corpuscular Volume 90.7 fL (80-94); Mean Platelet Vol. 10.3 fl (6.2-12.0); Monocyte# 0.54 X10^3/uL; Monocyte% 6.7 % (0-10); NRBC Flagged by Analyzer 0 % (0-5); Neutrophil # 4.04 X10^3/uL (2.7-7.7); Neutrophil % 49.7 % (47-70); Platelet Count 275 K/mm3 (150-450); RBC Distribution Width CV 14.6 % (11.6-14.6); RBC Distribution Width SD 48.8 fl (35.1-43.9); Red Blood Count 4.83 M/mm3 (4.6-6.2); White Blood Count 8.1 K/mm3 (4.4-11.0)
[2022-07-01 18:57] LABS: ALB/GLOB Ratio 0.8 RATIO (0.9-2.4); AST(SGOT) 8 U/L (15-37); Alanine Aminotransfer ALT/SGPT 15 U/L (16-61); Albumin, Serum 3.6 g/dL (3.2-5.0); Alkaline Phosphatase 95 U/L (45-117); Anion Gap 9 (5-15); BUN 21 mg/dL (7-18); BUN/Creat Ratio 17.6 RATIO (10-20); Calcium,Total 9.2 mg/dL (8.5-10.1); Chloride 102 mmol/L (98-107); Cholesterol 106 mg/dL (200); Creatinine, Serum 1.19 mg/dL (0.70-1.30); EST Glomerular Filtration Rate 67 mL/min (>60); Est Glom Filt Rate - Afr Amer 82 mL/min (>60); Globulin 4.3 g/dL (2.2-4.2); Glucose 196 mg/dL (74-106); High Density Lipoprotein 22 mg/dL; Potassium 4.1 mmol/L (3.5-5.1); Protein, Total 7.9 g/dL (6.4-8.2); Sodium Level 135 mmol/L (136-145); Triglycerides 327 mg/dL; Very Low Density Lipoprotein 65 mg/dL (5-40)
== END | disposition home or self-care (01) ==
LOC: MFPLAB 16:21
PROVIDERS: PCP Family Medicine; Visit Provider Family Medicine
DX: I25.10 Atherosclerotic heart disease of native coronary artery without angina pectoris (principal); E11.9 Type 2 diabetes mellitus without complications
CPT/HCPCS: 36415; 80053; 80061; 83036; 85025

== ENCOUNTER 2022-08-05 13:51 | Emergency (ER) | payer OTHER, SELFPAY ==
[2020-04-23 13:52] VITALS: BMI 33.5
[2022-08-05 13:52] VITALS: BP 155/87; PULSE 109; RESP 22; TEMP 36.8; O2SAT 97; BMI 32.8
--- NOTE | 2022-08-05 14:15 | EKG12_ITS ---
Test Reason : WEAKNESS Blood Pressure : / mmHG Vent. Rate : 103 BPM Atrial Rate : 103 BPM P-R Int : 166 ms QRS Dur : 096 ms QT Int : 316 ms P-R-T Axes : 036 061 014 degrees QTc Int : 413 ms Sinus tachycardia Inferior infarct , age undetermined Anterolateral infarct , age undetermined Abnormal ECG Confirmed by JULES ESCAMILLA, CRESENCIO ([id number]), science editor HENRIETTA DUKE ([id number]) on 08/06/2022 9:09:46 AM Referred By: TL Confirmed By:CRESENCIO VICENTE MD
--- NOTE | 2022-08-05 14:17 | EX.ED.DYSGE1 ---
HPI History of Present Illness Chief Complaint: Weakness Informant: patient and family Narrative Narrative: 2-day history fatigue weakness. Nausea vomiting yesterday 4 episodes last time over 24 hours on oral fluids.'s been having difficulty urinating for a while seems like he does not empty all the way. No known prostate issues. Denies dysuria. Smoker's cough. History of a STEMI 2 years with 1 stent. Denies chest pains or abdominal pain. Nonvaccinated for COVID. No COVID infections past. Home COVID yesterday was negative. This morning had a fever 101 per daughter orally prior to arrival. Has not taken medications 2 days due to not feeling well. 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 Ischemic cardiomyopathy STEMI (ST elevation myocardial infarction) (04/21/20) Type 2 diabetes mellitus Home Medications aspirin 81 mg tablet,delayed release 81 mg PO DAILY@0800 #90 tabs 01/24/21 [Rx Last Taken Unknown] empagliflozin 10 mg tablet (Jardiance) 25 mg PO DAILY 01/24/21 [History Last Taken Unknown] metformin 500 mg tablet 1,000 mg PO BID 01/24/21 [History Last Taken Unknown] carvedilol 12.5 mg tablet 12.5 mg PO BID #180 tabs 02/18/22 [Rx Last Taken Unknown] rosuvastatin 40 mg tablet 40 mg PO DAILY #90 tabs 02/18/22 [Rx Last Taken Unknown] ticagrelor 90 mg tablet 90 mg PO BID #180 tabs 02/18/22 [Rx Last Taken Unknown] valsartan 80 mg tablet 80 mg PO DAILY #90 tabs 02/18/22 [Rx Last Taken Unknown] Allergy/AdvReac Type Severity Reaction Status Date / Time lisinopril AdvReac Intermediate cough Verified 08/05/22 13:52 Family History Grandmother Heart disease Surgical History History of coronary artery stent placement (04/21/20) Social History (Updated 02/18/22 @ 11:46 by Cora BENDER, PA) Smoking Status: Current every day smoker tobacco type: cigarettes alcohol intake: current alcohol intake frequency: holidays/special occasions only substance use type: does not use caffeine: Yes (2) Type: coffee ROS ROS ED Constitutional Constitutional ED: Reports fever(s); Denies chills or sweats Eyes Eyes: Denies change in vision ENT ENT ED: Denies dysphagia or sore throat Cardiovascular Cardiovascular: Denies chest pain, leg edema, palpitations or racing heartbeat Respiratory/Chest Respiratory/Chest: Reports cough; Denies dyspnea or dyspnea on exertion Gastrointestinal Gastrointestinal: Reports nausea and vomiting; Denies abdominal pain or diarrhea Genitourinary Genitourinary ED: Reports other Details: Decreased urination ; Denies dysuria, hematuria or urinary frequency Musculoskeletal Musculoskeletal: Denies back pain, extremity pain or neck pain Integumentary Denies rash or wounds Neurologic Neurologic: Denies headache(s), paresthesias or weakness EXAM Physical Exam Const Vital Signs: 08/05/22 13:52 08/05/22 14:06 08/05/22 14:59 Temperature 98.2 F 99.4 F H Temperature Source Temporal Temporal Pulse Rate 109 H 101 H Respiratory Rate 22 H 30 H Respiratory Pattern Normal Blood Pressure 155/87 H 163/79 H Blood Pressure Mean 109 107 Pulse Ox 97 95 Oxygen Delivery Method Room Air Room Air 08/05/22 16:39 08/05/22 17:15 Temperature Temperature Source Pulse Rate 87 96 Respiratory Rate 20 H 30 H Respiratory Pattern Blood Pressure 141/79 H 137/84 H Blood Pressure Mean 99 Pulse Ox 95 100 Oxygen Delivery Method Room Air Positive well nourished and well developed General Appearance ED: well developed and NAD HEENT Reports dry mucous membranes normocephalic and atraumatic Mouth ED: Yes dry mucous membranes Mouth: dry mucous membranes Eyes PERRL, EOMs intact bilaterally and conjunctivae normal General Eye ED: Yes normal appearance of both eyes Neck no lymphadenopathy and supple General: Negative for tenderness Chest Wall Chest: Negative for tenderness Resp normal respiratory effort and normal air movement Effort and Inspection: symmetric chest movement; Negative for respiratory distress Cardio regular rhythm and no murmurs Rate: tachycardic Peripheral Pulses: pulses 2+ throughout GI normal to inspection, nondistended, normoactive bowel sounds and non-tender Palpation: Negative for guarding or rebound tenderness present Back/Spine no CVA tenderness and no thoracic nor lumbar tenderness Extremity normal to inspection General Extremety ED: Negative for edema or tenderness General Extremity: Negative for edema Neuro oriented x3 and no sensory deficits noted Sensorium / Orientation: awake and alert Skin no rashes or lesions noted and no wounds MDM MDM MDM Narrative Medical decision making narrative: Patient with a temp of 99 on arrival and felt warm. Reported fever 101 at home. Sepsis labs were ordered. Two-view chest x-ray reviewed by myself and read by radiology shows no acute process. Urine was negative. Labs White count 17 creatinine 1.89. He had dry mucosal membranes vomiting since yesterday likely prerenal. Is given a liter of fluids. Rapid COVID was negative. I did add blood cultures. He has no rash. Order for COVID PCR however he declined this from nursing. Discussed with patient continuing oral fluids at home for hydration. Monitor for any worsening symptoms or return precautions. He is able to ambulate in the ED. All questions were answered. Lab Data Attestation: I reviewed the patient's lab results. Labs: Laboratory Results - last 24 hr 08/05/22 08/05/22 08/05/22 14:00 14:00 14:00 WBC 17.1 H RBC 4.99 Hgb 14.7 Hct 44.5 MCV 89.2 MCH 29.5 MCHC 33.0 RDW Std Deviation 49.4 H RDW Coeff of Shauna 15.0 H Plt Count 181 MPV 10.2 Immature Gran % (Auto) 0.900 Neut % (Auto) 90.6 H Lymph % (Auto) 3.9 L [place] % (Auto) 4.3 Eos % (Auto) 0.1 Baso % (Auto) 0.2 Absolute Neuts (auto) 15.5 H Absolute Lymphs (auto) 0.67 L Nucleated RBC % 0 Sodium 133 L Potassium 4.1 Chloride 100 Carbon Dioxide 20.0 L Anion Gap 13 BUN 28 H Creatinine 1.89 H Estim Creat Clear Calc 45.60 Est GFR (MDRD) Af Amer 48 L Est GFR (MDRD) Non-Af 40 L BUN/Creatinine Ratio 14.8 Glucose 150 H Calcium 9.4 Total Bilirubin 0.70 AST 17 ALT 15 L Alkaline Phosphatase 88 Total Protein 8.1 Albumin 3.3 Globulin 4.8 H Albumin/Globulin Ratio 0.7 L Urine Color Yellow Urine Clarity Clear Urine pH 5.0 Ur Specific [place] 1.020 Urine Protein 100 H Urine Glucose (UA) 1000 H Urine Ketones 150 A* Urine Occult Blood 250 H Urine Nitrite Negative Urine Bilirubin Negative Urine Urobilinogen Normal Ur Leukocyte Esterase Negative Urine RBC 0-5 SEEN Urine WBC 0-5 SEEN Ur Squamous Epith Cells 0 SEEN Ur Transition Epith Cell 0-5 SEEN Urine Bacteria RARE Urine Mucus 0 SEEN Radiography Diagnostic Testing: Clinical Impression(s) from Imaging Studies Chest X-Ray 08/05/22 14:35 IMPRESSION: Stable increased interstitial markings at the lung bases suggestive of bibasilar scarring. Electronically Signed: Dameon Emerson MD at 15:04 EDT , EKG Initial EKG: Attestation: I personally reviewed and interpreted this EKG as follows: Comments: Sinus rate of 103, no ST T changes, T wave inversion in leads III. Nonspecific. Discharge Plan Triage Chief Complaint: Weakness ED Provider: Baron Nava Dx/Rx/DC Orders Clinical Impression: Weakness, Fever, Leukocytosis, Acute renal insufficiency, Dehydration, Viral syndrome Instructions: ED Dehydration (Adult), ED FUO Adult, ED Viral Syndrome (Adult), ED Weakness (Uncertain Cause), ED Renal Insufficiency Prescriptions: No Action carvedilol 12.5 mg tablet 12.5 mg PO BID Qty: 180 3RF Rx Instructions: must administer with a meal/food rosuvastatin 40 mg tablet 40 mg PO DAILY Qty: 90 3RF ticagrelor 90 mg tablet 90 mg PO BID Qty: 180 3RF valsartan 80 mg tablet 80 mg PO DAILY Qty: 90 3RF aspirin 81 mg tablet,delayed release (DR/EC) 81 mg PO DAILY@0800 Qty: 90 3RF metformin 500 mg tablet 1,000 mg PO BID Jardiance 10 mg tablet 25 mg PO DAILY Primary Care Provider: Cam Loyd Referrals: Cam Loyd MD [Primary Care Provider] - Activity Restrictions/Additional Instructions: Blood cultures in the lab. Rapid COVID-negative he declined PCR testing. Chest x-ray negative. Urine negative. Labs with creatinine 1.89 this is new. Given liter of fluids continue oral fluids at home. White count 17.1. Follow-up with your doctor, return if any worsening symptoms. Disposition Disposition: Home, Self Care Discharge Date/Time: 08/05/22 17:23
--- NOTE | 2022-08-05 14:35 | RAD_ITS ---
STUDY: X-RAY CHEST REASON FOR EXAM: Male, 56 years old. Cough TECHNIQUE: PA and lateral views of the chest. COMPARISON: Comparison is made with prior study dated 04/21/2020. FINDINGS: EKG electrodes are seen. 16 again, there is evidence of a increased interstitial markings worse at the lung bases. This is suggestive of chronic interstitial fibrosis. There is no demonstrated pleural abnormality. There is borderline cardiomegaly. Normal mediastinum and anderson. Normal visualized pulmonary arteries. There is atherosclerotic tortuosity of the aortic arch and descending thoracic aorta. There are diffuse degenerative changes of the visualized thoracic spine. Normal visualized ribs, clavicles, and shoulders. There is no demonstrated abnormality of the visualized soft tissue structures of the upper abdomen. RAD/Chest PA and Lateral IMPRESSION: Stable increased interstitial markings at the lung bases suggestive of bibasilar scarring. Electronically Signed: Dameon Emerson MD at 15:04 EDT ,
[2022-08-05 14:39] LABS: Mucous, Urine 0 SEEN /hpf (<or=2+); Squamous Epithelial Cells - UA 0 SEEN /hpf (0-5)
[2022-08-05 14:41] LABS: Absolute Lymphocyte Count 0.67 X10^3/uL (0.83-4.51); Absolute Neutrophil Count 15.5 X10^3/uL (2.0-7.7); Basophil# 0.04 X10^3/uL; Basophil% 0.2 % (0-1); Eosinophil# 0.02 X10^3/uL; Eosinophils% 0.1 % (0-5); Hematocrit 44.5 % (40-54); Hemoglobin 14.7 g/dL (13.0-16.5); Lymphocyte # 0.67 X10^3/ul (0.83-4.51); Lymphocyte % 3.9 % (19-41); Mean Corpuscular Hgb 29.5 pg (27.0-32.0); Mean Corpuscular Volume 89.2 fL (80-94); Mean Platelet Vol. 10.2 fl (6.2-12.0); Monocyte# 0.73 X10^3/uL; Monocyte% 4.3 % (0-10); NRBC Flagged by Analyzer 0 % (0-5); Neutrophil # 15.46 X10^3/uL (2.7-7.7); Neutrophil % 90.6 % (47-70); Platelet Count 181 K/mm3 (150-450); RBC Distribution Width SD 49.4 fl (35.1-43.9); Red Blood Count 4.99 M/mm3 (4.6-6.2); White Blood Count 17.1 K/mm3 (4.4-11.0)
[2022-08-05] MEDS: 0.9% Normal Saline 1,000 ML 1000 ML IV (14:44)
[2022-08-05] MEDS: Acetaminophen 500 MG Tablet 1000 MG PO (14:44)
[2022-08-05 14:48] LABS: Color, Urine Yellow (Yellow); Glucose, Dipstick 1000 mg/dl (Normal); Leukocyte Esterase-Dipstick Negative /ul (Negative); Nitrite-Dipstick Negative (Negative); Occult Blood-Urine 250 /ul (Negative); Protein-Dipstick 100 mg/dl (Negative); Urine Bilirubin Dipstick Negative (Negative); Urine Clarity Clear (Clear); Urine Urobilinogen Normal (Normal)
--- NOTE | 2022-08-05 14:48 | ED.RN ---
Pt attempting to urinate multiple times without voiding. Bladder scan 0ml.
[2022-08-05 14:57] LABS: ALB/GLOB Ratio 0.7 RATIO (0.9-2.4); AST(SGOT) 17 U/L (15-37); Alanine Aminotransfer ALT/SGPT 15 U/L (16-61); Albumin, Serum 3.3 g/dL (3.2-5.0); Alkaline Phosphatase 88 U/L (45-117); Anion Gap 13 (5-15); BUN 28 mg/dL (7-18); BUN/Creat Ratio 14.8 RATIO (10-20); Calcium,Total 9.4 mg/dL (8.5-10.1); Chloride 100 mmol/L (98-107); Creatinine, Serum 1.89 mg/dL (0.70-1.30); EST Glomerular Filtration Rate 40 mL/min (>60); Est Glom Filt Rate - Afr Amer 48 mL/min (>60); Globulin 4.8 g/dL (2.2-4.2); Glucose 150 mg/dL (74-106); Potassium 4.1 mmol/L (3.5-5.1); Protein, Total 8.1 g/dL (6.4-8.2); Sodium Level 133 mmol/L (136-145)
[2022-08-05 14:59] VITALS: BP 163/79; PULSE 101; RESP 30; TEMP 37.4; O2SAT 95
[2022-08-05 15:09] LABS: Ketone-Dipstick 150 mg/dl (Negative)
[2022-08-05 15:11] LABS: Red Blood Cells-Urine 0-5 SEEN /hpf (0-5); Transitional Epithelial - Ur 0-5 SEEN /hpf (0-5); White Blood Cells 0-5 SEEN /hpf (0-5)
[2022-08-05 15:12] LABS: Bacteria RARE /hpf (None Seen)
--- NOTE | 2022-08-05 16:15 | ED.RN ---
pt refusing pcr test. dr. cohen updated.
[2022-08-05 16:39] VITALS: BP 141/79; PULSE 87; RESP 20; O2SAT 95
[2022-08-05 17:15] VITALS: BP 137/84; PULSE 96; RESP 30; O2SAT 100
== END 2022-08-05 17:23 | disposition home or self-care (01) ==
PROVIDERS: Emergency Provider Emergency Medicine; PCP Family Medicine; Visit Provider Emergency Medicine
DX: B34.9 Viral infection, unspecified (principal); E11.9 Type 2 diabetes mellitus without complications; E86.0 Dehydration; F17.210 Nicotine dependence, cigarettes, uncomplicated; I25.10 Atherosclerotic heart disease of native coronary artery without angina pectoris; N28.9 Disorder of kidney and ureter, unspecified; D72.829 Elevated white blood cell count, unspecified; Z79.82 Long term (current) use of aspirin; Z79.899 Other long term (current) drug therapy; Z20.822 Contact with and (suspected) exposure to COVID-19
CPT/HCPCS: 71046; 80053; 81001; 85025; 87040; 87077; 87186; 87811; 93005; 96360; 96361; 99285; J7030; A4216

== ENCOUNTER 2022-08-05 21:18 | Inpatient (IN) | payer OTHER, SELFPAY ==
[2020-04-23 13:52] VITALS: BMI 33.5
[2022-08-05] VITALS (7 sets, daily range): BP systolic 68–111; BP diastolic 45–64; PULSE 100–125; RESP 22–34; TEMP 35.8; O2SAT 93–97; BMI 32.5
--- NOTE | 2022-08-05 22:04 | EKG12_ITS ---
Test Reason : gen ill Blood Pressure : / mmHG Vent. Rate : 104 BPM Atrial Rate : 104 BPM P-R Int : 150 ms QRS Dur : 102 ms QT Int : 328 ms P-R-T Axes : 021 061 109 degrees QTc Int : 431 ms Sinus tachycardia Inferior infarct , age undetermined Anterior infarct , age undetermined Abnormal ECG Confirmed by JOEY ESCAMILLA, KADE ([id number]), magazine editor HENRIETTA DUKE ([id number]) on 08/07/2022 9:45:59 AM Referred By: Confirmed By:KADE COOK MD
--- NOTE | 2022-08-05 22:06 | EX.ED.DYSGE1 ---
HPI History of Present Illness Chief Complaint: General Illness Informant: patient and family Onset/Context/Timing Onset: Today Context: Gradual Onset Timing: Continuous Quality: dyspnea Location: chest Current Severity: Moderate Maximum Severity: Moderate Worsened by: exertion Relieved by: nothing; tried no meds/tx's Associated Symptoms Associated Symptoms: fevers, cough, diarrhea, weakness, clammy/sweaty Associated Symptoms ED: cough Narrative Narrative: Patient here earlier for 2 days worth of symptoms including fevers, cough, malaise. He had a leukocytosis, septic work-up was obtained with blood culture sent, no evidence of infection on his chest x-ray or urinalysis. Some urinary symptoms have been new. Now, he is dyspneic, sweaty/clammy, appears worse. He also had a big bout of nonbloody diarrhea at home. [facility] Medical History Atherosclerotic heart disease [place] coronary artery w/angina pectoris Ischemic cardiomyopathy STEMI (ST elevation myocardial infarction) (04/21/20) Type 2 diabetes mellitus Home Medications aspirin 81 mg tablet,delayed release 81 mg PO DAILY@0800 #90 tabs 01/24/21 [Rx Last Taken Unknown] empagliflozin 10 mg tablet (Jardiance) 25 mg PO DAILY 01/24/21 [History Last Taken Unknown] metformin 500 mg tablet 1,000 mg PO BID 01/24/21 [History Last Taken Unknown] carvedilol 12.5 mg tablet 12.5 mg PO BID #180 tabs 02/18/22 [Rx Last Taken Unknown] rosuvastatin 40 mg tablet 40 mg PO DAILY #90 tabs 02/18/22 [Rx Last Taken Unknown] ticagrelor 90 mg tablet 90 mg PO BID #180 tabs 02/18/22 [Rx Last Taken Unknown] valsartan 80 mg tablet 80 mg PO DAILY #90 tabs 02/18/22 [Rx Last Taken Unknown] Allergy/AdvReac Type Severity Reaction Status Date / Time lisinopril AdvReac Intermediate cough Verified 08/05/22 21:26 Family History Grandmother Heart disease Surgical History History of coronary artery stent placement (04/21/20) Social History Smoking Status: Current every day smoker tobacco type: cigarettes alcohol intake: current alcohol intake frequency: holidays/special occasions only substance use type: does not use caffeine: Yes (2) Type: coffee ROS ROS ED Constitutional Constitutional ED: Reports body ache(s), chills, fatigue, fever(s), malaise and sweats Eyes Eyes: Denies change in vision or diplopia ENT ENT ED: Denies rhinorrhea or sore throat Cardiovascular Cardiovascular: Denies chest pain or palpitations Respiratory/Chest Respiratory/Chest: Reports cough, dyspnea and dyspnea on exertion Gastrointestinal Gastrointestinal: Reports diarrhea; Denies abdominal pain, nausea or vomiting Genitourinary Genitourinary ED: Reports other Details: Some frequency and feels like he is unable to empty his bladder completely when he is done going ; Denies dysuria, flank pain, hematuria or low back pain Musculoskeletal Musculoskeletal: Denies back pain or neck pain Integumentary Denies abscess or rash Neurologic Neurologic: Denies headache(s), paresthesias or weakness Psychiatric Psychiatric: Denies anxiety or suicidal thoughts EXAM Physical Exam Const Vital Signs: 08/05/22 21:18 08/05/22 22:14 08/05/22 22:22 Temperature 96.5 F L Temperature Source Temporal Pulse Rate 125 H 107 H Respiratory Rate 24 H 22 H Respiratory Effort Short of Breath Respiratory Pattern Normal Blood Pressure 111/61 Blood Pressure Mean 77 Pulse Ox 93 Oxygen Delivery Method Room Air Oxygen Flow Rate (L/min) 08/05/22 22:25 08/05/22 22:26 08/05/22 22:58 Temperature Temperature Source Pulse Rate 105 H 104 H Respiratory Rate 34 H 24 H Respiratory Effort Respiratory Pattern Blood Pressure 68/45 L 79/62 L Blood Pressure Mean 52 67 Pulse Ox 94 94 Oxygen Delivery Method Room Air Room Air Oxygen Flow Rate (L/min) 08/05/22 22:50 08/05/22 23:21 08/05/22 23:54 Temperature Temperature Source Pulse Rate 106 H 100 100 Respiratory Rate 24 H 34 H Respiratory Effort Respiratory Pattern Blood Pressure 79/62 L 80/51 L 88/64 L Blood Pressure Mean 67 60 72 Pulse Ox 97 95 94 Oxygen Delivery Method Room Air Room Air Room Air Oxygen Flow Rate (L/min) 08/06/22 00:30 08/06/22 00:22 Temperature 98.2 F Temperature Source Temporal Pulse Rate 104 H 106 H Respiratory Rate 42 H 34 H Respiratory Effort Respiratory Pattern Blood Pressure 86/61 L Blood Pressure Mean 69 Pulse Ox 97 Oxygen Delivery Method Nasal Cannula Oxygen Flow Rate (L/min) 2 Positive well nourished and well developed Constitutional Narrative: Ill-appearing, no distress General Appearance ED: well developed and NAD HEENT Reports moist mucous membranes normocephalic and atraumatic Eyes PERRL and EOMs intact bilaterally Neck full ROM, no lymphadenopathy, supple and no JVD Resp Resp Narrative: Tachypnea, no distress. Rales in the bases, slight expiratory wheezes throughout. Trachea midline. Cardio regular rate, regular rhythm and no murmurs Rate: tachycardic GI non-tender and non-distended Auscultation: normoactive bowel sounds Palpation: soft Back/Spine no CVA tenderness General Back: other FROM Extremity normal to inspection and no calf tenderness General Extremety ED: Negative for edema, pulses abnormal or tenderness General Extremity: Negative for edema or pulses abnormal Neuro oriented x3, CN's II-XII intact bilaterally and no sensory deficits noted Sensorium / Orientation: awake and alert Motor Exam: strength 5/5 throughout Psych mental status grossly normal Skin no rashes or lesions noted and no wounds Skin Narrative: Ashen and diaphoretic Sepsis Attestation Sepsis Alert: Yes Sepsis Attestation: Agree w/Sepsis Date exam was performed: 08/05/22 Time exam was performed: 23:20 Possible Source of Sepsis: Pulmonary Sepsis Organ Dysfunction Criteria Present: SBP < 90 mmHg or MAP < 65 mmHg, Creatinine > 2.0 mg/dL and Serum CO2 < 20 mmol/L (on BMP) Fluid Resuscitation Fluid resuscitation indicated?: Yes Fluid Resuscitation ordered: 30 ml/kg fluid bolus ordered Sepsis Note Date exam was performed: 08/06/22 Time exam was performed: 00:30 Sepsis Attestation: Sepsis re-evaluation was performed (2L IVF in, still hypotensive, getting more sob, bibasilar rales/crackles similar to initial exam, elevated BNP, ? pulm edema - CXR not helpful, too unstable for CT -- plan insert central line emergently and start pressors so as to decrease fluid rate/amt) Response to fluids: Vasopressors started MDM MDM MDM Narrative Medical decision making narrative: Initially patient's blood pressure was good at 111/61 and he was tachycardic, he looks ashen, sweaty, and ill, but is in no respiratory distress. He is breathing fast, and his lungs sound wheezy and he has some rales. My suspicion is that he is getting sick from pneumonia that his x-ray from earlier in the day is lagging behind on, so I repeated his x-ray with a portable because he looks so ill, and on my interpretation it is showing a right lower lobe developing infiltrate, so I ordered antibiotics empirically. Prior to starting them, his blood pressure went down sharply into the 60s, he was started on IV fluid bolus simultaneously, blood cultures were obtained earlier today during his septic work-up earlier so I did not repeat those, nor his urine studies. I also considered noninfectious cardiac causes, his EKG shows nonspecific repolarization abnormality, and his troponin is elevated nonspecifically at 275, his BNP is 339. The etiology of these is unknown right now I do not think he is having an acute injury, he has had no chest pain and after duo nebulizer treatment he is breathing better, it is certainly possible all of this could be due to hypoxemia since sitting here at rest he is between 90-93% on room air. He does not have COPD that he knows of but was told that he may have some COPD during a prior ER visit. I am putting him on some oxygen 2 L nasal cannula. Radiology not in agreement with me with regards to the chest x-ray, however he is not stable for CT scanning at this time given his blood pressure. We are continuing to treat this with IV fluids. Patient did respond to the IV fluids, but not until the end of the 30 cc/kg bolus, and at that time his MAP was 66, still symptomatic and appearing ill. Central line was placed and Levophed was started, and during the line placement he was extremely orthopneic. This helped once we set him up. I pretreated him with a couple albuterol aerosols prior to lying him flat because I noticed when I laid him down that he was very orthopneic. For this reason, when we started the Levophed, we paused the IV fluids for the rest of his ED duration, his blood pressure continued to elevate, I was not sure yet if this was more cardiac. The second troponin came back just slightly elevated in the 300s, suggesting this is less likely primarily cardiac since it did not jump up 10 or more fold. Lab Data Attestation: I reviewed the patient's lab results. Labs: Laboratory Results - last 24 hr 08/05/22 08/05/22 08/05/22 22:15 22:15 22:15 WBC 9.3 RBC 4.45 L Hgb 13.3 Hct 40.0 MCV 89.9 MCH 29.9 MCHC 33.3 RDW Std Deviation 50.1 H RDW Coeff of Shauna 15.3 H Plt Count 130 L MPV 10.5 Immature Gran % (Auto) 0.400 Neut % (Auto) 93.6 H Lymph % (Auto) 4.2 L Gage % (Auto) 1.4 Eos % (Auto) 0.1 Baso % (Auto) 0.3 Absolute Neuts (auto) 8.7 H Absolute Lymphs (auto) 0.39 L Nucleated RBC % 0 Differential Comment SEE COMMENT Platelet Estimate SLT DEC RBC Morphology N CHROM Anisocytosis RARE Sodium 132 L Potassium 3.9 Chloride 102 Carbon Dioxide 16.0 L Anion Gap 14 BUN 32 H Creatinine 2.10 H Estim Creat Clear Calc 41.04 Est GFR (MDRD) Af Amer 42 L Est GFR (MDRD) Non-Af 35 L BUN/Creatinine Ratio 15.2 Glucose 146 H Lactic Acid Calcium 8.6 Total Bilirubin 0.80 AST 17 ALT 12 L Alkaline Phosphatase 167 H Troponin I High Sens 275 H* B-Natriuretic Peptide 339.1 H Total Protein 7.2 Albumin 2.8 L Globulin 4.4 H Albumin/Globulin Ratio 0.6 L 08/05/22 23:15 WBC RBC Hgb Hct MCV MCH MCHC RDW Std Deviation RDW Coeff of Shauna Plt Count MPV Immature Gran % (Auto) Neut % (Auto) Lymph % (Auto) Gage % (Auto) Eos % (Auto) Baso % (Auto) Absolute Neuts (auto) Absolute Lymphs (auto) Nucleated RBC % Differential Comment Platelet Estimate RBC Morphology Anisocytosis Sodium Potassium Chloride Carbon Dioxide Anion Gap BUN Creatinine Estim Creat Clear Calc Est GFR (MDRD) Af Amer Est GFR (MDRD) Non-Af BUN/Creatinine Ratio Glucose Lactic Acid 2.5 H* Calcium Total Bilirubin AST ALT Alkaline Phosphatase Troponin I High Sens B-Natriuretic Peptide Total Protein Albumin Globulin Albumin/Globulin Ratio Radiography Chest X-Ray - ED: 1 View, Read by ED Physician and Right Infiltrate Diagnostic Testing: Clinical Impression(s) from Imaging Studies Chest X-Ray 08/05/22 22:37 IMPRESSION: 1. Unchanged heterogeneous airspace opacities involving the lower lungs bilaterally. 2. No pneumothorax or other significant short interval changes. Electronically Signed: Johnny Crenshaw MD at 23:21 EDT , Rhythm Strip Rhythm Strip: Sinus Tach Rate: 120 Ectopy: None EKG Initial EKG: Attestation: I personally reviewed and interpreted this EKG as follows: Interpretation: No Acute Injury Pattern, Sinus Tachycardia, S-T Depression (1mm or less laterally w/o recip changes), Non-Specific ST Changes (diffusely) and - (old inf ND) Prior EKG tracings: available for review (lateral STEMI from 2019) Prior: Changed Procedures Other Procedures Procedure(s): Central line placement: Informed consent obtained, patient prepped and draped in a sterile fashion with the whole body sheet. Anesthetized the left subclavian vein site with a total of 3 cc of plain 1% lidocaine, found dark red nonpulsatile blood with a finder needle, 16 cm triple-lumen central line catheter placed via modified Seldinger technique without complication, tolerated well. Sutured in place. Chlorhexidine disc against the chest insertion site. All 3 ports domenico back none pulsatile dark red blood and flushed easily. Placement verified by chest x-ray, 1 view on my interpretation showing good placement in the SVC and no pneumothorax or other complication or other significant change to suggest acute pulmonary edema. Critical Care Time Critical Care Time: Yes Critical care time (excluding procedures): 30-74 minutes (35 min, not including procedure time), Including time spent:, Discussing w/Patient &/or Family/Psychological Aide, Discussing w/Consultants, Arranging Admission or Transfer and Performing Direct Patient Care at Bedside Discharge Plan Dx/Rx/DC Orders Clinical Impression: Septic shock, MAY (acute kidney injury), Pneumonia, Elevated troponin Disposition Disposition: Acute Care Hospital [facility] Discharge Date/Time: 08/06/22 02:40
[2022-08-05] MEDS: Ipratropium/Albuterol Sulfate 3 ML AMPUL.NEB INHALATION (22:13)
[2022-08-05 22:29] LABS: Absolute Lymphocyte Count 0.39 X10^3/uL (0.83-4.51); Absolute Neutrophil Count 8.7 X10^3/uL (2.0-7.7); Basophil# 0.03 X10^3/uL; Basophil% 0.3 % (0-1); Eosinophil# 0.01 X10^3/uL; Eosinophils% 0.1 % (0-5); Hemoglobin 13.3 g/dL (13.0-16.5); Lymphocyte # 0.39 X10^3/ul (0.83-4.51); Lymphocyte % 4.2 % (19-41); Mean Corp Hgb Conc 33.3 g/dL (32-36); Mean Corpuscular Hgb 29.9 pg (27.0-32.0); Mean Corpuscular Volume 89.9 fL (80-94); Mean Platelet Vol. 10.5 fl (6.2-12.0); Monocyte# 0.13 X10^3/uL; Monocyte% 1.4 % (0-10); NRBC Flagged by Analyzer 0 % (0-5); Neutrophil % 93.6 % (47-70); POSITIVE DIFFERENTIAL YES; POSITIVE MORPHOLOGY YES; Platelet Count 130 K/mm3 (150-450); RBC Distribution Width CV 15.3 % (11.6-14.6); RBC Distribution Width SD 50.1 fl (35.1-43.9); Red Blood Count 4.45 M/mm3 (4.6-6.2); White Blood Count 9.3 K/mm3 (4.4-11.0)
[2022-08-05 22:37] LABS: Differential Indicated SCAN CRITERIA MET
--- NOTE | 2022-08-05 22:37 | RAD_ITS ---
EXAM: XR CHEST, 1 VIEW CLINICAL INDICATION: dyspnea TECHNIQUE: Frontal view of the chest. This report was created using [employer] report generation technology. COMPARISON: 08/05/2022 chest x-ray performed at 2:41 PM. FINDINGS: See Impression. RAD/Chest 1 View (Portable) IMPRESSION: 1. Unchanged heterogeneous airspace opacities involving the lower lungs bilaterally. 2. No pneumothorax or other significant short interval changes. Electronically Signed: Johnny Crenshaw MD at 23:21 EDT ,
[2022-08-05 22:50] LABS: ALB/GLOB Ratio 0.6 RATIO (0.9-2.4); AST(SGOT) 17 U/L (15-37); Alanine Aminotransfer ALT/SGPT 12 U/L (16-61); Albumin, Serum 2.8 g/dL (3.2-5.0); Alkaline Phosphatase 167 U/L (45-117); Anion Gap 14 (5-15); BUN 32 mg/dL (7-18); BUN/Creat Ratio 15.2 RATIO (10-20); Calcium,Total 8.6 mg/dL (8.5-10.1); Chloride 102 mmol/L (98-107); EST Glomerular Filtration Rate 35 mL/min (>60); Est Glom Filt Rate - Afr Amer 42 mL/min (>60); Estimated Creatinine Clearance 41.04 ml/min; Globulin 4.4 g/dL (2.2-4.2); Glucose 146 mg/dL (74-106); Potassium 3.9 mmol/L (3.5-5.1); Protein, Total 7.2 g/dL (6.4-8.2); Sodium Level 132 mmol/L (136-145); Troponin-I HS 275 pg/mL (3.0-78.0)
[2022-08-05] MEDS: 0.9% Normal Saline 1,000 ML 999 ML IV (22:53)
[2022-08-05 23:02] LABS: BNP,B-Type NATRIURETIC PEPTIDE 339.1 pg/mL (0-100)
[2022-08-05 23:06] LABS: Anisocytosis RARE; Platelet Estimate SLT DEC (ADEQ); Red Cell Morphology N CHROM NORMAL (NORM C&C)
[2022-08-05 23:58] LABS: Lactic Acid 2.5 mmol/L (0.4-1.9)
[2022-08-06] VITALS (36 sets, daily range): BP systolic 86–138; BP diastolic 58–83; PULSE 75–106; RESP 12–42; TEMP 36.4–37.7; O2SAT 9–100; BMI 33.7
[2022-08-06] MEDS: 0.9% Normal Saline 1,000 ML 999 ML IV (00:12)
[2022-08-06] MEDS: Ipratropium/Albuterol Sulfate 3 ML AMPUL.NEB INHALATION ×3 (00:28→23:23)
--- NOTE | 2022-08-06 00:50 | RAD_ITS ---
EXAM: XR CHEST, 1 VIEW CLINICAL INDICATION: central line placement TECHNIQUE: Frontal view of the chest. This report was created using [employer] report generation technology. COMPARISON: 08/05/22. FINDINGS: See Impression. RAD/CXR for Line Placement IMPRESSION: 1. Interval placement of a left subclavian central venous catheter with tip in the SVC, suprahilar in position. 2. No pneumothorax. 3. Unchanged bilateral lung airspace disease probably representing pneumonia. Electronically Signed: Johnny Crenshaw MD at 2:16 EDT ,
--- NOTE | 2022-08-06 00:55 | HP.PCM.HOS_ITS ---
HPI - General General Date of Admission: 08/06/22 Date of Service: 08/06/22 Chief Complaint: Shortness of breath HPI Narrative DALTON WARREN, is a 56 M with a significant history of tobacco abuse; CAD on aspirin and Plavix; diabetes mellitus; and CAD status post stents who presents emergency department with 2 to 2 and a half-days history of progressively worsening shortness of breath. Associated with his symptom is nonproductive cough; anorexia; fever with temperature of 101 Fahrenheit at home. Also he had chills and rigors. [facility] Medical History Atherosclerotic heart disease [place] coronary artery w/angina pectoris Ischemic cardiomyopathy STEMI (ST elevation myocardial infarction) (04/21/20) Type 2 diabetes mellitus Home Medications aspirin 81 mg tablet,delayed release 81 mg PO DAILY@0800 #90 tabs 01/24/21 [Rx Last Taken Unknown] empagliflozin 10 mg tablet (Jardiance) 25 mg PO DAILY 01/24/21 [History Last Taken Unknown] metformin 500 mg tablet 1,000 mg PO BID 01/24/21 [History Last Taken Unknown] carvedilol 12.5 mg tablet 12.5 mg PO BID #180 tabs 02/18/22 [Rx Last Taken Unknown] rosuvastatin 40 mg tablet 40 mg PO DAILY #90 tabs 02/18/22 [Rx Last Taken Unkn own] ticagrelor 90 mg tablet 90 mg PO BID #180 tabs 02/18/22 [Rx Last Taken Unknown] valsartan 80 mg tablet 80 mg PO DAILY #90 tabs 02/18/22 [Rx Last Taken Unknown] Allergy/AdvReac Type Severity Reaction Status Date / Time lisinopril AdvReac Intermediate cough Verified 08/05/22 21:26 Family History Grandmother Heart disease Surgical History History of coronary artery stent placement (04/21/20) Social History Smoking Status: Current every day smoker tobacco type: cigarettes alcohol intake: current alcohol intake frequency: holidays/special occasions only substance use type: does not use caffeine: Yes (2) Type: coffee ROS ROS Narrative Pertinent positives and pertinent negatives as noted in HPI. All other systems were reviewed and are negative Vital Signs Vital Signs Vital Signs: 08/05/22 21:18 08/05/22 22:14 08/05/22 22:22 Temperature 96.5 F L Temperature Source Temporal Pulse Rate 125 H 107 H Respiratory Rate 24 H 22 H Respiratory Effort Short of Breath Respiratory Pattern Normal Blood Pressure 111/61 Blood Pressure Mean 77 Pulse Ox 93 Oxygen Delivery Method Room Air Oxygen Flow Rate (L/min) 08/05/22 22:25 08/05/22 22:26 08/05/22 22:58 Temperature Temperature Source Pulse Rate 105 H 104 H Respiratory Rate 34 H 24 H Respiratory Effort Respiratory Pattern Blood Pressure 68/45 L 79/62 L Blood Pressure Mean 52 67 Pulse Ox 94 94 Oxygen Delivery Method Room Air Room Air Oxygen Flow Rate (L/min) 08/05/22 22:50 08/05/22 23:21 08/05/22 23:54 Temperature Temperature Source Pulse Rate 106 H 100 100 Respiratory Rate 24 H 34 H Respiratory Effort Respiratory Pattern Blood Pressure 79/62 L 80/51 L 88/64 L Blood Pressure Mean 67 60 72 Pulse Ox 97 95 94 Oxygen Delivery Method Room Air Room Air Room Air Oxygen Flow Rate (L/min) 08/06/22 00:30 08/06/22 00:22 Temperature 98.2 F Temperature Source Temporal Pulse Rate 104 H 106 H Respiratory Rate 42 H 34 H Respiratory Effort Respiratory Pattern Blood Pressure 86/61 L Blood Pressure Mean 69 Pulse Ox 97 Oxygen Delivery Method Nasal Cannula Oxygen Flow Rate (L/min) 2 Weight Weight: 103 kg Body Mass Index (BMI) 32.5 Physical Exam Narrative Physical exam: General: Well-nourished, well-developed. Head: Normocephalic, atraumatic, no tenderness Eyes: Vision is grossly intact. EOMI ENT, no trauma, moist mucous membranes, no rhinorrhea Neck: Nontender, full range of motion, no spinal tenderness, deformities, step- off CVS: Tachycardia. S1-S2 present. No murmur, gallop or rub. Respiratory : Increased work of breathing. Audible wheezes. Tachypnea. Rhonchi. Abdomen: Soft, nontender, nondistended, normal bowel sounds, no masses : Deferred Back: Nontender, no CVA tenderness Extremities: Nontender full range of motion, no trauma Skin: Diaphoretic ; normal color, no trauma, abrasions Neuro: Alert, oriented, cranial nerves II through XII grossly intact. Psychiatry: Normal mood. Normal affect. Not depressed. Not anxious. Results Lab / Micro Data Result Diagrams: 08/06/22 03:41 08/05/22 22:15 Labs: Laboratory Results - last 24 hr 08/05/22 22:15: Sodium 132 L, Potassium 3.9, Chloride 102, Carbon Dioxide 16.0 L , Anion Gap 14, BUN 32 H, Creatinine 2.10 H, Estim Creat Clear Calc 41.04, Est GFR (MDRD) Af Amer 42 L, Est GFR (MDRD) Non-Af 35 L, BUN/Creatinine Ratio 15.2, Glucose 146 H, Calcium 8.6, Total Bilirubin 0.80, AST 17, ALT 12 L, Alkaline Phosphatase 167 H, Troponin I High Sens 275 H*, Total Protein 7.2, Albumin 2.8 L , Globulin 4.4 H, Albumin/Globulin Ratio 0.6 L 08/05/22 22:15: WBC 9.3, RBC 4.45 L, Hgb 13.3, Hct 40.0, MCV 89.9, MCH 29.9, MCHC 33.3, RDW Std Deviation 50.1 H, RDW Coeff of Shauna 15.3 H, Plt Count 130 L, MPV 10.5, Immature Gran % (Auto) 0.400, Neut % (Auto) 93.6 H, Lymph % (Auto) 4.2 L, [place] % (Auto) 1.4, Eos % (Auto) 0.1, Baso % (Auto) 0.3, Absolute Neuts (auto) 8.7 H, Absolute Lymphs (auto) 0.39 L, Nucleated RBC % 0, Differential Comment SEE COMMENT, Platelet Estimate SLT DEC, RBC Morphology N CHROM, Anisocytosis RARE 08/05/22 22:15: B-Natriuretic Peptide 339.1 H 08/05/22 23:15: Lactic Acid 2.5 H* Rhythm Strip Rhythm Strip: Sinus Tach Rate: 120 Ectopy: None Radiology Impression Chest X-Ray 08/05/22 22:37 IMPRESSION: 1. Unchanged heterogeneous airspace opacities involving the lower lungs bilaterally. 2. No pneumothorax or other significant short interval changes. Electronically Signed: Johnny Crenshaw MD at 23:21 EDT , Assessment & Plan Assessment/Plan (1) Septic shock: (2) Pneumonia: PLAN: Plan The patient presented with sepsis due to pneumonia with acute sepsis related organ dysfunction as evidenced by lactic acidosis and hypotension with multiple systolic blood pressure of less than 90; and multiple MAP of less than 60 after receiving 30 mL/kg bolus was still hypotensive and required pressors. SIRS criteria: Respiratory rate more than 20 Heart rate more than 90 Of note patient was at the ED earlier on on the same day and his white count was 17.1. On second presentation his white counts were improved to 9.3. However follow-up blood pressure increased to 15.5. Septic shock secondary to pneumonia Chest x-ray was visualized and independently interpreted. I agree with below interpretation of bilateral lung airspace disease. Per my interpretation opacity is more prominent at lower right heart border. Gram-positive, gram-negative or atypical pneumonia. Rapid COVID antigen is negative. Blood culture x2 obtained and pending. Lactic acid of 2.5; trend. Ceftriaxone and azithromycin given at the emergency department. Vancomycin and Zosyn ordered. Elevated troponin Likely secondary to sepsis. Trend. Diabetes mellitus Blood glucose is stable. Hold home metformin. Empagliflozin continued. Accu- Chek with correction scale insulin ordered. 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 Creatinine presentation was 2.10. Baseline creatinine is around 1.15. Received normal saline bolus and now on pressors. Avoid nephrotoxic's. Trend BMP. Chronic heart failure with reduced ejection fraction Stress test on 08/10/2020 showed left ventricular ejection fraction of 29%. Echocardiogram on 04/22/2020 showed estimated EF of 35% with stage I diastolic function. Patient with dyspnea but likely stable from CHF point of view. Cautious use of IV fluids. In the setting of hypotension on pressors Home carvedilol and valsartan held. DVT prophylaxis: Subcutaneous Lovenox ordered. Charges/Coding Visit Charges Inpatient E&M: 70945 Init Hosp L3
[2022-08-06 03:25] LABS: Reflex Lactate? Y
--- NOTE | 2022-08-06 04:45 | ED.RN ---
see down time charting from [id number]
[2022-08-06 05:50] LABS: Absolute Lymphocyte Count 0.66 X10^3/uL (0.83-4.51); Absolute Neutrophil Count 14.2 X10^3/uL (2.0-7.7); Basophil# 0.04 X10^3/uL; Basophil% 0.3 % (0-1); Eosinophil# 0.01 X10^3/uL; Eosinophils% 0.1 % (0-5); Lymphocyte # 0.66 X10^3/ul (0.83-4.51); Lymphocyte % 4.3 % (19-41); Mean Corp Hgb Conc 33.3 g/dL (32-36); Mean Corpuscular Hgb 30.3 pg (27.0-32.0); Mean Corpuscular Volume 90.9 fL (80-94); Mean Platelet Vol. 10.9 fl (6.2-12.0); Monocyte% 3.2 % (0-10); NRBC Flagged by Analyzer 0 % (0-5); Neutrophil # 14.18 X10^3/uL (2.7-7.7); Neutrophil % 91.7 % (47-70); POSITIVE MORPHOLOGY YES; Platelet Count 131 K/mm3 (150-450); RBC Distribution Width CV 15.3 % (11.6-14.6); RBC Distribution Width SD 50.7 fl (35.1-43.9); Red Blood Count 3.63 M/mm3 (4.6-6.2); White Blood Count 15.5 K/mm3 (4.4-11.0)
--- NOTE | 2022-08-06 05:50 | NURSING ---
Pt received from ED with levophed infusing at 5 mcg/min.
[2022-08-06 06:00] LABS: Differential Indicated SCAN CRITERIA MET
[2022-08-06 06:20] LABS: ALB/GLOB Ratio 0.6 RATIO (0.9-2.4); AST(SGOT) 16 U/L (15-37); Alanine Aminotransfer ALT/SGPT 15 U/L (16-61); Albumin, Serum 2.4 g/dL (3.2-5.0); Alkaline Phosphatase 73 U/L (45-117); Anion Gap 14 (5-15); BUN 32 mg/dL (7-18); BUN/Creat Ratio 14.5 RATIO (10-20); Calcium,Total 7.5 mg/dL (8.5-10.1); Chloride 104 mmol/L (98-107); Creatinine, Serum 2.21 mg/dL (0.70-1.30); EST Glomerular Filtration Rate 33 mL/min (>60); Est Glom Filt Rate - Afr Amer 40 mL/min (>60); Globulin 3.8 g/dL (2.2-4.2); Glucose 170 mg/dL (74-106); Protein, Total 6.2 g/dL (6.4-8.2); Sodium Level 133 mmol/L (136-145); Troponin-I HS 397 pg/mL (3.0-78.0)
[2022-08-06] MEDS: 0.9% Saline Lock 10 ML Syringe IV ×2 (06:30→11:28)
[2022-08-06 06:48] LABS: Differential Comment SCANNED
[2022-08-06 07:07] LABS: Troponin-I HS 468 pg/mL (3.0-78.0)
--- NOTE | 2022-08-06 07:43 | EX.PCM.CONCC ---
Assessment & Plan Assessment/Plan (1) Septic shock: PLAN: Agree with azithromycin, Zosyn, Vanco as ordered by hospitalist. Await culture results and de-escalate antibiotics when possible, consider checking a procalcitonin in 2 days to guide decision Obtain a complete respiratory PCR for other viral etiologies including influenza and mycoplasma, COVID is negative. Titrate FiO2 to keep SPO2 greater than 92%. Patient is currently on room air with saturation of 93% Keep fluids KVO to avoid fluid overload, if oxygenation worsens, consider gentle diuresis after receiving 2.8 L once his blood pressure is stable Tylenol as needed to reduce fever Monitor liver function tests and other signs and symptoms of multiorgan dysfunction, daily labs including coags and troponin until downtrending Will follow (2) Pneumonia: PLAN: Treat sepsis and presumed pneumonia as above, respiratory PCR as above Titrate oxygen as above Monitor chest x-ray daily to avoid excessive accumulation of pleural fluid and tap if necessary. Currently there is none Niva cannot. (3) Acute renal insufficiency: PLAN: Maintain good perfusion Avoid nephrotoxins Supportive care Hold valsartan and use lowest dose of norepinephrine to keep MAP 65-75. 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 (7) History of coronary artery stent placement: (8) Chronic anticoagulation: PLAN: Continue aspirin and Plavix, monitor coags (9) Diabetes mellitus: PLAN: Plan Management per hospitalist, recommend keeping glucose less than 180 while in ICU HPI Consult Data Date of Consult: 08/06/22 HPI Narrative Reason for Consultation: Sepsis with hypotension on pressors, likely due to pneumonia HPI Narrative: DALTON WARREN, is a 56 M who presents with 2 days of increased shortness of breath, fever to 101 degrees, nonproductive cough, and rigors. He has a history of previous acute myocardial infarction with baseline ejection fraction of 29% in August 2020, mild renal insufficiency with baseline creatinine 1.15 now 2.2, acute type II myocardial infarction with troponin increased to 468, and mild CHF exacerbation with BNP 300 2:39 0.8 L of saline infused for sepsis resuscitation. He has a history of a STEMI with stents, type 2 diabetes, and chronic smoker. In the ER, he was given fluid resuscitation, azithromycin, and Zosyn, was given vancomycin and norepinephrine now at 5 mcg/min via a new left subclavian central venous line. His diabetes is managed with metformin and Giardia, hypertension with valsartan, his COVID is negative in the ER. He is on chronic aspirin and Plavix. [facility] Medical History (Updated 08/06/22 @ 07:[address] Joao Gregory MD) Atherosclerotic heart disease [place] coronary artery w/angina pectoris Diabetes mellitus Ischemic cardiomyopathy STEMI (ST elevation myocardial infarction) (04/21/20) Type 2 diabetes mellitus Home Medications aspirin 81 mg tablet,delayed release 81 mg PO DAILY@0800 #90 tabs 01/24/21 [Rx Last Taken Unknown] empagliflozin 10 mg tablet (Jardiance) 25 mg PO DAILY 01/24/21 [History Last Taken Unknown] metformin 500 mg tablet 1,000 mg PO BID 01/24/21 [History Last Taken Unknown] carvedilol 12.5 mg tablet 12.5 mg PO BID #180 tabs 02/18/22 [Rx Last Taken Unknown] rosuvastatin 40 mg tablet 40 mg PO DAILY #90 tabs 02/18/22 [Rx Last Taken Unknown] ticagrelor 90 mg tablet 90 mg PO BID #180 tabs 02/18/22 [Rx Last Taken Unknown] valsartan 80 mg tablet 80 mg PO DAILY #90 tabs 02/18/22 [Rx Last Taken Unknown] Allergy/AdvReac Type Severity Reaction Status Date / Time lisinopril AdvReac Intermediate cough Verified 08/05/22 21:26 Family History Grandmother Heart disease Surgical History History of coronary artery stent placement (04/21/20) Social History Smoking Status: Current every day smoker tobacco type: cigarettes alcohol intake: current alcohol intake frequency: holidays/special occasions only substance use type: does not use caffeine: Yes (2) Type: coffee Medical Records Data Attestation: I reviewed the patient's medical records Lab / Micro Data Lab results narrative: I have reviewed the lab results Result Diagrams: 08/06/22 03:41 08/06/22 03:41 Labs: Laboratory Results - last 24 hr 08/05/22 22:15: Sodium 132 L, Potassium 3.9, Chloride 102, Carbon Dioxide 16.0 L, Anion Gap 14, BUN 32 H, Creatinine 2.10 H, Estim Creat Clear Calc 41.04, Est GFR (MDRD) Af Amer 42 L, Est GFR (MDRD) Non-Af 35 L, BUN/Creatinine Ratio 15.2, Glucose 146 H, Calcium 8.6, Total Bilirubin 0.80, AST 17, ALT 12 L, Alkaline Phosphatase 167 H, Troponin I High Sens 275 H*, Total Protein 7.2, Albumin 2.8 L, Globulin 4.4 H, Albumin/Globulin Ratio 0.6 L 08/05/22 22:15: WBC 9.3, RBC 4.45 L, Hgb 13.3, Hct 40.0, MCV 89.9, MCH 29.9, MCHC 33.3, RDW Std Deviation 50.1 H, RDW Coeff of Shauna 15.3 H, Plt Count 130 L, MPV 10.5, Immature Gran % (Auto) 0.400, Neut % (Auto) 93.6 H, Lymph % (Auto) 4.2 L, Charlton % (Auto) 1.4, Eos % (Auto) 0.1, Baso % (Auto) 0.3, Absolute Neuts (auto) 8.7 H, Absolute Lymphs (auto) 0.39 L, Nucleated RBC % 0, Differential Comment SEE COMMENT, Platelet Estimate SLT DEC, RBC Morphology N CHROM, Anisocytosis RARE 08/05/22 22:15: B-Natriuretic Peptide 339.1 H 08/05/22 23:15: Lactic Acid 2.5 H* 08/06/22 03:41: Lactic Acid 1.0 08/06/22 03:41: Sodium 133 L, Potassium 4.0, Chloride 104, Carbon Dioxide 15.0 L, Anion Gap 14, BUN 32 H, Creatinine 2.21 H, Estim Creat Clear Calc 39.00, Est GFR (MDRD) Af Amer 40 L, Est GFR (MDRD) Non-Af 33 L, BUN/Creatinine Ratio 14.5, Glucose 170 H, Calcium 7.5 L, Total Bilirubin 0.70, AST 16, ALT 15 L, Alkaline Phosphatase 73, Troponin I High Sens 397 H*, Total Protein 6.2 L, Albumin 2.4 L, Globulin 3.8, Albumin/Globulin Ratio 0.6 L 08/06/22 03:41: WBC 15.5 H, RBC 3.63 L, Hgb 11.0 L, Hct 33.0 L, MCV 90.9, MCH 30.3, MCHC 33.3, RDW Std Deviation 50.7 H, RDW Coeff of Shauna 15.3 H, Plt Count 131 L, MPV 10.9, Immature Gran % (Auto) 0.400, Neut % (Auto) 91.7 H, Lymph % (Auto) 4.3 L, [place] % (Auto) 3.2, Eos % (Auto) 0.1, Baso % (Auto) 0.3, Absolute Neuts (auto) 14.2 H, Absolute Lymphs (auto) 0.66 L, Nucleated RBC % 0, Differential Comment SCANNED 08/06/22 06:18: Troponin I High Sens 468 H* Micro: Results are pending Rhythm Strip Rhythm Strip: Sinus Tach Rate: 120 Ectopy: None Radiology Impression Chest X-Ray 08/05/22 22:37 IMPRESSION: 1. Unchanged heterogeneous airspace opacities involving the lower lungs bilaterally. 2. No pneumothorax or other significant short interval changes. Electronically Signed: Johnny Crenshaw MD at 23:21 EDT , Chest X-Ray 08/06/22 00:50 IMPRESSION: 1. Interval placement of a left subclavian central venous catheter with tip in the SVC, suprahilar in position. 2. No pneumothorax. 3. Unchanged bilateral lung airspace disease probably representing pneumonia. Electronically Signed: Johnny Crenshaw MD at 2:16 EDT , Sepsis Attestation Sepsis Alert: Yes Sepsis Attestation: Agree w/Sepsis Date exam was performed: 08/06/22 Possible Source of Sepsis: Pulmonary Sepsis Organ Dysfunction Criteria Present: SBP < 90 mmHg or MAP < 65 mmHg, Creatinine > 2.0 mg/dL, Lactic Acid > 2 mmol/L and Serum CO2 < 20 mmol/L (on BMP) Fluid Resuscitation Fluid resuscitation indicated?: Yes Fluid Resuscitation ordered: 30 ml/kg fluid bolus ordered Reason for lesser fluid bolus:: Heart failure and Renal Failure Sepsis Note Response to fluids: Vasopressors started
[2022-08-06] MEDS: Aspirin E.C. 81 MG Tablet PO (07:46)
--- NOTE | 2022-08-06 07:53 | PCM.RX.CS ---
Consult Pharmacy has been consulted to manage selected antiobiotic: Vancomycin Type of Consult: New start Suspected Infection: Sepsis, Pneumonia Labs: Sodium 133 mmol/L (136-145) L 08/06/22 03:41 Potassium 4.0 mmol/L (3.5-5.1) 08/06/22 03:41 Chloride 104 mmol/L (98-107) 08/06/22 03:41 Carbon Dioxide 15.0 mmol/L (21.0-32.0) L 08/06/22 03:41 Anion Gap 14 (5-15) 08/06/22 03:41 BUN 32 mg/dL (7-18) H 08/06/22 03:41 Creatinine 2.21 mg/dL (0.70-1.30) H 08/06/22 03:41 Est GFR (MDRD) Af Amer 40 mL/min (>60) L 08/06/22 03:41 Est GFR (MDRD) Non-Af 33 mL/min (>60) L 08/06/22 03:41 BUN/Creatinine Ratio 14.5 RATIO (10-20) 08/06/22 03:41 Glucose 170 mg/dL (74-106) H 08/06/22 03:41 Weight used for dosin.6 kg Estimated Creatinine Clearance: 46.2ML/MIN Goal Trough: 15-20 mcg/mL Pharmacy Plan for Drug Dosing: Give initial dose of 2000mg IV x1, then continue with 750mg IV q12h per [facility] dosing protocol. Will check a trough level before the 4th total dose tomorrow. The patient's CrCl of 46.2ml/min was calculated using an adjusted body weight. Pharmacy Service will continue to monitor and adjust dosing as required. Follow-Up Labs: Trough Vancomycin Labs to be done on [date and time ordered]: 08/07/22 19:30
[2022-08-06] MEDS: 0.9% Normal Saline 1,000 ML 75 ML IV (08:02)
[2022-08-06 08:16] LABS: Bedside Glucose 126 mg/dL (74-106)
[2022-08-06 08:39] LABS: Troponin-I HS 369 pg/mL (3.0-78.0)
--- NOTE | 2022-08-06 09:44 | ECHOCS_ITS ---
Version 2 Reason For Study: Elevated troponins Procedure This was a 2D Doppler, Color Flow transthoracic echocardiogram. The study was technically difficult. Exam performed portable in ICU/CCU. Left Ventricle Normal LV size. The estimated ejection fraction is 35 %. Stage 1 diastolic dysfunction. Moderate segmental systolic dysfunction (see wall motion). Mid-Anterior : Severely Hypokinetic. Mid- anteroseptal : Severely Hypokinetic. [place] : Hypokinetic. Right Ventricle Normal RV size. Normal systolic function. Atria The left atrium is mildly enlarged. Normal right atrium. Tricuspid Valve Normal tricuspid valve. Aortic Valve Trisinus/trileaflet aortic valve. Pulmonic Valve Normal pulmonic valve. Great Vessels Normal aortic root. The pulmonary artery is normal size. Normal inferior vena cava. Pericardium/Pleural No pericardial effusion. Medication Diluted definity 3ml given slow IV push to enhance endocardial definition. MMode/2D Measurements & Calculations LVIDd: 5.4 cm IVSd: 1.2 cm Ao root diam: 3.2 cm LVIDs: 4.0 cm LVPWd: 0.93 cm RVDd: 3.7 cm FS: 25.9 % LAV(MOD-bp): 67.5 ml LVAd ap4: 41.1 cm2 SV(MOD-sp4): 60.6 ml LAV(MOD-bp) Indexed: 30.2 ml/m2 LVLd ap4: 9.3 cm LAV(MOD-sp2): 62.9 ml EDV(MOD-sp4): 154.9 ml LAV(MOD-sp4): 65.3 ml EDV(sp4-el): 153.4 ml LVAs ap4: 32.8 cm2 LVLs ap4: 9.5 cm ESV(MOD-sp4): 94.3 ml ESV(sp4-el): 95.8 ml EF(MOD-sp4): 39.1 % EF(sp4-el): 37.6 % SV(sp4-el): 57.7 ml LA A4 area: 22.0 cm2 LA dimension(2D): 4.3 cm RA A4 area: 19.1 cm2 Doppler Measurements & Calculations MV E max jose: 86.1 cm/sec Lat Peak E' Jose: 9.6 cm/sec Med Peak E' Jose: 5.6 cm/sec MV A max jose: 108.1 cm/sec E/E' lat: 8.9 E/E' med: 15.3 MV E/A: 0.80 Ao V2 max: 152.9 cm/sec LV V1 max: 105.9 cm/sec PA V2 max: 98.4 cm/sec Ao max P.3 mmHg LV V1 max P.5 mmHg ECHO/Echo Complete W/ Contrast Interpretation Summary Normal LV size. The estimated ejection fraction is 35 %. Stage 1 diastolic dysfunction. Moderate segmental systolic dysfunction (see wall motion). The left atrium is mildly enlarged. Contrast injection was performed. Compared to previous study, the left ventricu lar systolic function is the same.. Ordering Physician: Omero Rush Referring Physician: Cam Loyd Performed By: Madison Lares RDCS
[2022-08-06] MEDS: TICAGRELOR 90 MG TABLET PO ×2 (10:02→20:38)
[2022-08-06] MEDS: Enoxaparin 40 MG/0.4 ML Syringe SC (10:02)
[2022-08-06] MEDS: Empagliflozin 25 MG Tablet PO (10:02)
--- NOTE | 2022-08-06 10:49 | CPS ---
Patient refused covid and respiratory panel
[2022-08-06] MEDS: Furosemide 20 MG/2 ML VIAL IV (11:28)
[2022-08-06 11:56] LABS: Bedside Glucose 132 mg/dL (74-106)
--- NOTE | 2022-08-06 14:00 | CASEMGMT ---
RN LEANA Face to Face with patient for initial transition planning/care coordination assessment. RN CM introduced self and role at [facility]. Patient sitting in chair, alert and oriented. Patient willing to participate in assessment and is able to answer all questions appropriately. Care providers, pharmacy, and demographics verified. Patient wishes to discharge home, denies need for home health at this time. Patient states he has no further needs or concerns at this time. CM to follow for discharge planning needs that may arise. PCP: Rach Specialists: Sirisha fashion consultant Preferred Pharmacy: [facility] retail Insurance: MMO Prescription Benefit: yes Living Will/HPOA: none LNOK: Living Arrangements: Patient lives with in a 2 story home. Patient states he sleeps downstairs on couch. Patient states he is independent and able to ambulate stairs. Transportation: self, DME/HHC: Patient denies DME in the home. Patient denies previous HHC or SNF. Patient states he was smoking 1.5-2 PPD of cigarettes, patient states he quit 4 days ago. Disposition Plan: Patient to discharge home with family support and follow-up plans in place. Stephany DE ANDA, RN, CM
[2022-08-06] MEDS: Insulin Lispro 100 UNIT/ML INSULN.PEN SC (16:04)
[2022-08-06 16:21] LABS: Bedside Glucose 185 mg/dL (74-106)
--- NOTE | 2022-08-06 16:46 | EX.PCM.CONCC ---
Assessment & Plan Assessment/Plan (1) Septic shock: PLAN: Azithromycin, Zosyn, Vanco Norepinephrine was weaned off this morning at 5:45 AM, he completed the sepsis resuscitation in the ER, and was partially responsive to fluid resuscitation of 2.8 L Monitor culture results and de-escalate antibiotics as tolerated, consider a procalcitonin to guide therapy. Hold metformin due to the patient's current metabolic acidosis and lactic acidemia. Repeat blood cultures since the patient had a positive blood culture for bacterial pathogen Hold valsartan due to the patient's current hypotension Supportive care Bronchopulmonary hygiene, cough deep breathe nightly hours while awake, incentive spirometry to help mobilize sputum A respiratory PCR was negative for acute viral infection Lasix 20 mg IV once the patient is stable off of pressors to help alleviate the bibasilar pulmonary infiltrates which may be either fluid from CHF or atypical pneumonia. His BNP was 339. Follow lactate very 6 hours until normal. (2) Pneumonia: PLAN: As above. Pulmonary infiltrates may also be due to BNP elevation. His white count was 15.5, management as above (3) Acute exacerbation of chronic obstructive pulmonary disease (COPD): PLAN: The patient has been aware of wheezing and shortness of breath for quite some time.. He has never been told of a diagnosis of COPD, and has never been on inhalers. -Greater than 3 minutes smoking cessation counseling was done today. -We will initiate ipratropium nebulizer to avoid further tachycardia -Eventual outpatient pulmonary function tests and long-acting inhalers -Add Solu-Medrol. -To help with smoking cessation if he is ready to make a quit attempt in the next 1 to 2 months. (4) Diabetes mellitus: PLAN: Management per hospitalist service; glucoses 180 or less while in ICU. Cautiously restart his diabetes medication once his lactic acidosis has resolved, which is a side effect of metformin, in addition to septic shock (5) Chronic anticoagulation: PLAN: Continue for stent maintenance in the LAD, continue to monitor as needed (6) Nicotine dependence: PLAN: As above Complete smoking cessation, immediately, as recommended (7) Obesity: PLAN: Weight loss and cholesterol management (8) Fever: PLAN: Monitor and treat as needed with Tylenol Consider other potential sources if fever continues after 48 hours (9) Leukocytosis: PLAN: Monitor while sepsis is being treated (10) Hypophosphatemia: PLAN: Supplemented today, monitor daily (11) MAY (acute kidney injury): PLAN: Baseline creatinine is 1.15. Supportive care and avoidance of nephrotoxins is recommended. He has left subclavian central line. (12) Elevated troponin: PLAN: Supportive care, had not peaked by this morning's 618-hour lab. Max was 468. Cardiology consultation is recommended due to the patient's low ejection fraction of 28% Agree with echocardiogram by the hospitalist service. (13) History of coronary artery stent placement: PLAN: Anticoagulation (14) Ischemic cardiomyopathy: PLAN: Ejection fraction in August 2020 was 29%. Recheck echo recommended for new wall motion abnormality Cardiology consultation as needed. Lasix 20 mg IV once he is stable off pressors for 6 hours. Repeat BNP as needed Avoid further fluid infusion; his total I's and O's were 2489 cc since admission. Would avoid overload, and give Lasix IV PLAN: Plan As above Thank you for consulting critical care on your pleasant patient. We will be happy to follow him with you. Critical care time spent with patient at bedside, review of documentation, lab results, radiology and other test results, discussion with colleagues and ancillary staff, clinical management of patient, and updating family if applicable, was 45 minutes. This time does not include any procedures, if performed[place] [address]. HPI Consult Data Date of Consult: 08/06/22 HPI Narrative Reason for Consultation: 56-year-old man with 2 days of increasing dyspnea, 1 day of cough and rigor HPI Narrative: DALTON WARREN, is a 56 M who presents as above, he is a current smoker, and has wheezing shortness of breath but has not been on inhalers. 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 He has several poor teeth, but denies any sore throat exposure to sick people, nausea vomiting or diarrhea. He denied any chest arm or jaw pain. He was more short of breath for 2 days with a chronic with an acute productive cough with brownish sputum and presented to the emergency room where he was found to have temperature of 101 lactate of 2.5, anion gap of 14, BNP of 339, troponin of 468, bicarbonate of 15. He was given sepsis resuscitation with 2.8 L of saline, placed on norepinephrine at 5 mics per minute after being found fluid unresponsive, azithromycin and Zosyn was started in the ER, vancomycin was added and managed by pharmacy. He has type 2 diabetes managed with metformin and Giardia, and hypertension managed with valsartan, all of which were held. He has known CAD and is status post LAD stent in 2019. This morning he feels better, was weaned off norepinephrine at 5:45 AM today. Current medications reviewed. FORMERLY [facility], [facility] Medical History (Updated 08/06/22 @ 17:[address] Joao Gregory MD) Atherosclerotic heart disease [place] coronary artery w/angina pectoris Diabetes mellitus Ischemic cardiomyopathy STEMI (ST elevation myocardial infarction) (04/21/20) Type 2 diabetes mellitus Home Medications aspirin 81 mg tablet,delayed release 81 mg PO DAILY@0800 #90 tabs 01/24/21 [Rx Last Taken Unknown] empagliflozin 10 mg tablet (Jardiance) 25 mg PO DAILY 01/24/21 [History Last Taken Unknown] metformin 500 mg tablet 1,000 mg PO BID 01/24/21 [History Last Taken Unknown] carvedilol 12.5 mg tablet 12.5 mg PO BID #180 tabs 02/18/22 [Rx Last Taken Unknown] rosuvastatin 40 mg tablet 40 mg PO DAILY #90 tabs 02/18/22 [Rx Last Taken Unknown] ticagrelor 90 mg tablet 90 mg PO BID #180 tabs 02/18/22 [Rx Last Taken Unknown] valsartan 80 mg tablet 80 mg PO DAILY #90 tabs 02/18/22 [Rx Last Taken Unknown] Allergy/AdvReac Type Severity Reaction Status Date / Time lisinopril AdvReac Intermediate cough Verified 08/05/22 21:26 Family History Grandmother Heart disease Surgical History History of coronary artery stent placement (04/21/20) Social History (Updated 08/06/22 @ 16:[address] 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 current occupational exposures/hazards: No Smoking Status: Current every day smoker tobacco type: cigarettes counseling given: provider counseling and counseling >3 minutes alcohol intake: current alcohol intake frequency: holidays/special occasions only substance use type: does not use caffeine: Yes (2) Type: coffee ROS Constitutional Constitutional: Reports chills, fatigue and fever(s) ENT HEENT: Denies dizziness, loss taste/smell or sore throat Cardiovascular Cardiovascular: Reports dyspnea; Denies chest pain or edema Respiratory/Chest Respiratory/Chest: Reports cough, dyspnea, shortness of breath with exertion, wheezing and other Details: Denies sleep apnea, denies inhaler use ; Denies chest tightness Gastrointestinal Gastrointestinal: Denies abdominal pain, diarrhea, nausea or vomiting Musculoskeletal Musculoskeletal: Denies myalgias Integumentary Integumentary: Denies lesions or rash Neurologic Neurologic: Denies abnormal speech or seizure-like activity Psychiatric Psychiatric: Reports anxiety Physical Exam Narrative Well-developed obese man who appears acutely ill, in mild respiratory distress with cough and audible wheezing EENT: Poor dentition, with several rotted teeth, some loose. Many missing. Mucous membranes moist, no thrush or erythema. Extraoculars are intact, pupils are equal Neck is supple with no JVD thyromegaly or mass, mild retrognathia Chest has bilateral expiratory wheezes and rales in all lung field,, cough with some rhonchi. Poor air movement, prolonged expiration, some use of accessory muscles Heart: Normal S1-S2 with no murmurs Abdomen is soft, nontender, no organomegaly or mass Extremities have no clubbing cyanosis or edema Neurologic exam is grossly nonfocal, patient is mildly lethargic and slightly confused but is a reasonable historian. Strength is good, patient was able to sit up for exam. Skin is flushed, mildly diaphoretic, no lesions Medical Records Data Attestation: I reviewed the patient's medical records Lab / Micro Data Result Diagrams: 08/06/22 03:41 08/06/22 03:41 Labs: Laboratory Results - last 24 hr 08/05/22 22:15: Sodium 132 L, Potassium 3.9, Chloride 102, Carbon Dioxide 16.0 L, Anion Gap 14, BUN 32 H, Creatinine 2.10 H, Estim Creat Clear Calc 41.04, Est GFR (MDRD) Af Amer 42 L, Est GFR (MDRD) Non-Af 35 L, BUN/Creatinine Ratio 15.2, Glucose 146 H, Calcium 8.6, Total Bilirubin 0.80, AST 17, ALT 12 L, Alkaline Phosphatase 167 H, Troponin I High Sens 275 H*, Total Protein 7.2, Albumin 2.8 L, Globulin 4.4 H, Albumin/Globulin Ratio 0.6 L 08/05/22 22:15: WBC 9.3, RBC 4.45 L, Hgb 13.3, Hct 40.0, MCV 89.9, MCH 29.9, MCHC 33.3, RDW Std Deviation 50.1 H, RDW Coeff of Shauna 15.3 H, Plt Count 130 L, MPV 10.5, Immature Gran % (Auto) 0.400, Neut % (Auto) 93.6 H, Lymph % (Auto) 4.2 L, Park % (Auto) 1.4, Eos % (Auto) 0.1, Baso % (Auto) 0.3, Absolute Neuts (auto) 8.7 H, Absolute Lymphs (auto) 0.39 L, Nucleated RBC % 0, Differential Comment SEE COMMENT, Platelet Estimate SLT DEC, RBC Morphology N CHROM, Anisocytosis RARE 08/05/22 22:15: B-Natriuretic Peptide 339.1 H 08/05/22 23:15: Lactic Acid 2.5 H* 08/06/22 02:10: Troponin I High Sens 369 H* 08/06/22 03:41: Lactic Acid 1.0 08/06/22 03:41: Sodium 133 L, Potassium 4.0, Chloride 104, Carbon Dioxide 15.0 L, Anion Gap 14, BUN 32 H, Creatinine 2.21 H, Estim Creat Clear Calc 39.00, Est GFR (MDRD) Af Amer 40 L, Est GFR (MDRD) Non-Af 33 L, BUN/Creatinine Ratio 14.5, Glucose 170 H, Calcium 7.5 L, Total Bilirubin 0.70, AST 16, ALT 15 L, Alkaline Phosphatase 73, Troponin I High Sens 397 H*, Total Protein 6.2 L, Albumin 2.4 L, Globulin 3.8, Albumin/Globulin Ratio 0.6 L 08/06/22 03:41: WBC 15.5 H, RBC 3.63 L, Hgb 11.0 L, Hct 33.0 L, MCV 90.9, MCH 30.3, MCHC 33.3, RDW Std Deviation 50.7 H, RDW Coeff of Shauna 15.3 H, Plt Count 131 L, MPV 10.9, Immature Gran % (Auto) 0.400, Neut % (Auto) 91.7 H, Lymph % (Auto) 4.3 L, Park % (Auto) 3.2, Eos % (Auto) 0.1, Baso % (Auto) 0.3, Absolute Neuts (auto) 14.2 H, Absolute Lymphs (auto) 0.66 L, Nucleated RBC % 0, Differential Comment SCANNED 08/06/22 06:18: Troponin I High Sens 468 H* 08/06/22 07:44: POC Glucose 126 H 08/06/22 11:34: POC Glucose 132 H 08/06/22 15:59: POC Glucose 185 H Micro: Microbiology 08/06/22 03:41 Urine, Random Legionella Antigen - Final 08/06/22 03:41 Urine, Random Streptococcus pneumoniae Antigen (M - Final Rhythm Strip Rhythm Strip: Sinus Tach Rate: 120 Ectopy: None Radiology Impression Chest X-Ray 08/05/22 22:37 IMPRESSION: 1. Unchanged heterogeneous airspace opacities involving the lower lungs bilaterally. 2. No pneumothorax or other significant short interval changes. Electronically Signed: Johnny Crenshaw MD at 23:21 EDT , Chest X-Ray 08/06/22 00:50 IMPRESSION: 1. Interval placement of a left subclavian central venous catheter with tip in the SVC, suprahilar in position. 2. No pneumothorax. 3. Unchanged bilateral lung airspace disease probably representing pneumonia. Electronically Signed: Johnny Crenshaw MD at 2:16 EDT , Sepsis Attestation Sepsis Alert: Yes Sepsis Attestation: Agree w/Sepsis Date exam was performed: 08/06/22 Possible Source of Sepsis: Pulmonary Sepsis Organ Dysfunction Criteria Present: SBP < 90 mmHg or MAP < 65 mmHg, Creatinine > 2.0 mg/dL, Lactic Acid > 2 mmol/L, Serum CO2 < 20 mmol/L (on BMP) and New/Unexplained change in mental status Fluid Resuscitation Fluid resuscitation indicated?: Yes Fluid Resuscitation ordered: 30 ml/kg fluid bolus ordered Sepsis Note Date exam was performed: 08/06/22 Sepsis Attestation: Sepsis re-evaluation was performed (Today) Response to fluids: Non Fluid responsive hypotension and Vasopressors started
[2022-08-06] MEDS: Atorvastatin Calcium 80 MG Tablet PO (20:38)
[2022-08-06 21:36] LABS: Bedside Glucose 134 mg/dL (74-106)
[2022-08-07] VITALS (21 sets, daily range): BP systolic 107–139; BP diastolic 62–82; PULSE 55–84; RESP 13–24; TEMP 35.6–36.9; O2SAT 95–99
[2022-08-07] MEDS: Ipratropium/Albuterol Sulfate 3 ML AMPUL.NEB INHALATION ×6 (02:23→23:16)
[2022-08-07 03:26] LABS: Absolute Lymphocyte Count 0.39 X10^3/uL (0.83-4.51); Absolute Neutrophil Count 7.5 X10^3/uL (2.0-7.7); Basophil# 0.02 X10^3/uL; Basophil% 0.2 % (0-1); Eosinophil# 0.02 X10^3/uL; Eosinophils% 0.2 % (0-5); Hematocrit 33.9 % (40-54); Hemoglobin 11.4 g/dL (13.0-16.5); Lymphocyte # 0.39 X10^3/ul (0.83-4.51); Lymphocyte % 4.8 % (19-41); Mean Corp Hgb Conc 33.6 g/dL (32-36); Mean Corpuscular Hgb 30.5 pg (27.0-32.0); Mean Corpuscular Volume 90.6 fL (80-94); Mean Platelet Vol. 10.4 fl (6.2-12.0); Monocyte# 0.21 X10^3/uL; Monocyte% 2.6 % (0-10); NRBC Flagged by Analyzer 0 % (0-5); Neutrophil # 7.54 X10^3/uL (2.7-7.7); Neutrophil % 91.8 % (47-70); POSITIVE DIFFERENTIAL YES; Platelet Count 136 K/mm3 (150-450); RBC Distribution Width CV 15.7 % (11.6-14.6); RBC Distribution Width SD 52.7 fl (35.1-43.9); Red Blood Count 3.74 M/mm3 (4.6-6.2); White Blood Count 8.2 K/mm3 (4.4-11.0)
[2022-08-07 03:29] LABS: Differential Indicated SCAN CRITERIA MET
[2022-08-07 03:39] LABS: Anion Gap 11 (5-15); BUN 36 mg/dL (7-18); BUN/Creat Ratio 18.6 RATIO (10-20); Calcium,Total 8.1 mg/dL (8.5-10.1); Chloride 107 mmol/L (98-107); Creatinine, Serum 1.94 mg/dL (0.70-1.30); EST Glomerular Filtration Rate 38 mL/min (>60); Est Glom Filt Rate - Afr Amer 46 mL/min (>60); Estimated Creatinine Clearance 44.42 ml/min; Glucose 166 mg/dL (74-106); Potassium 4.4 mmol/L (3.5-5.1); Sodium Level 135 mmol/L (136-145)
[2022-08-07 03:53] LABS: Differential Comment SCANNED
[2022-08-07] MEDS: TICAGRELOR 90 MG TABLET PO ×2 (08:32→21:50)
[2022-08-07] MEDS: Aspirin E.C. 81 MG Tablet PO (08:32)
[2022-08-07] MEDS: Enoxaparin 40 MG/0.4 ML Syringe SC (08:33)
[2022-08-07] MEDS: Insulin Lispro 100 UNIT/ML INSULN.PEN SC ×4 (08:33→21:50)
[2022-08-07] MEDS: Empagliflozin 25 MG Tablet PO (08:33)
[2022-08-07 09:00] LABS: Bedside Glucose 159 mg/dL (74-106)
--- NOTE | 2022-08-07 10:06 | PCM.PN.INT ---
Assessment & Plan Assessment/Plan (1) Septic shock: PLAN: Zosyn, Vanco, d/c azithromycin Monitor culture results and de-escalate antibiotics as tolerated, consider a procalcitonin to guide therapy. Hold metformin due to the patient's current metabolic acidosis and lactic acidemia. Repeat blood cultures ordered today, since the patient had a positive blood culture for bacterial pathogen Ready to transfer out of ICU (2) Pneumonia: PLAN: As above. Pulmonary infiltrates may also be due to BNP elevation. His white count was 15.5, management as above (3) Acute exacerbation of chronic obstructive pulmonary disease (COPD): PLAN: Improved with treatment, changed to prednisone 40 mg daily, taper over 7 days to off. -start symbicort 2 puffs BID with a spacer, or other formulary LABD/ICS combination per his insurance -outpatient PFT -Greater than 3 minutes smoking cessation counseling was done today -woo -Eventual outpatient pulmonary function tests and long-acting inhalers smoking cessation consultation with outpatient followup Bronchopulmonary hygiene, cough deep breathe 2qh hours while awake A respiratory PCR was negative for acute viral infection (4) Diabetes mellitus: PLAN: Management per hospitalist service (5) Chronic anticoagulation: PLAN: Continue for stent maintenance in the LAD, continue to monitor as needed (6) Nicotine dependence: PLAN: As above Complete smoking cessation, immediately, as recommended (7) Obesity: PLAN: Weight loss and cholesterol management (8) Fever: PLAN: Monitor and treat as needed with Tylenol Consider other potential sources if fever continues after 48 hours (9) Leukocytosis: PLAN: resolved (10) Hypophosphatemia: PLAN: resolved (11) MAY (acute kidney injury): PLAN: Baseline creatinine is 1.15. Improving, not resolved. Supportive care and avoidance of nephrotoxins is recommended. He has left subclavian central line which can be discontinued D/C maintenance fluid. (12) Elevated troponin: PLAN: Supportive care, had not peaked by this morning's 618-hour lab. Max was 468. Ischemic cardiomyopathy was seen of echo Cardiology consultation is recommended due to the patient's low ejection fraction of 35% Continue medical management of ischemic cardiomyopathy, and further outpatient/inpatient workup per cardiology/primary team. Lasix 40 mg IV now and then 20-40 mg po daily for CHF and to mobilize fluid infused during sepsis resuscitation therapy. (13) History of coronary artery stent placement: PLAN: Anticoagulation (14) Ischemic cardiomyopathy: PLAN: Ejection fraction in August 2020 was 29%. Recheck echo recommended for new wall motion abnormality Cardiology consultation as needed. Lasix 20 mg IV once he is stable off pressors for 6 hours. Repeat BNP as needed Avoid further fluid infusion; his total I's and O's were 2489 cc since admission. Would avoid overload, and give Lasix IV PLAN: Plan As above Thank you for consulting critical care on your pleasant patient. We will be happy to follow him with you. Care time spent with patient at bedside, review of documentation, lab results, radiology and other test results, discussion with colleagues and ancillary staff, clinical management of patient, and updating family if applicable, was 40 minutes[place] [address]. Subjective Subjective No cough or sputum today. Less wheezing. Feels much better, was OOB to chair uneventfully yesterday. Awaiting transfer to medical floor. Smoking cessation counseling done. He is somewhat ready to make a quit attempt, has no cravings today after 4 days with no cigarettes. 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 Recommend NRT 14 mg daily, and/or adding wellbutrin if he has a relapse. Source of infection is still uncertain (due to possibly being multifactorial; teeth, lungs, urine). He is afebrile with stable vitals today. He stated he has noted gradually increasing dyspnea (drives [place] to [facility]) at the end of his route, and agrees that he may have been developing COPD for some time. Discussed use of inhalers and essential need for complete smoking cessation. No chest pain, n,v,d,edema, headache. Eating well. Renal function is normalizing. Echo showed stable low EF 35%, and moderate diastolic dysfunction plus focal wall motion abnormality (i.e., ischemic and diastolic cardiomyopathy). Objective Data Objective Data Vital Signs: Vital Signs Temp Pulse Resp BP Pulse Ox O2 Del Method O2 Flow Rate 35.6 C L 84 20 H 123/78 H 99 Room Air 2 08/07/22 09:00 08/07/22 09:00 08/07/22 09:00 08/07/22 09:00 08/07/22 09:00 08/07/22 09:00 08/06/22 02:40 FiO2 30 09/28/22 04:45 Oxygen Flow Rate (L/min) 2 Oxygen Delivery Method Room Air Weight: 104.1 kg Body Mass Index (BMI) 33.7 Intake & Output: Intake and Output for Last 24 Hours 08/05/22 08/06/22 08/07/22 23:59 23:59 23:59 Intake Total 600 / 600 4459.92 / 4634.92 540 / 540 Output Total 2000 / 2500 1999 / 1999 Balance 600 / 600 2459.92 / 2134.92 -1460 / -1460 Lab / Micro Data Result Diagrams: 08/07/22 03:20 08/07/22 03:20 Labs: Laboratory Results - last 24 hr 08/06/22 11:34: POC Glucose 132 H 08/06/22 15:59: POC Glucose 185 H 08/06/22 20:41: POC Glucose 134 H 08/07/22 03:20: WBC 8.2, RBC 3.74 L, Hgb 11.4 L, Hct 33.9 L, MCV 90.6, MCH 30.5, MCHC 33.6, RDW Std Deviation 52.7 H, RDW Coeff of Shauna 15.7 H, Plt Count 136 L, MPV 10.4, Immature Gran % (Auto) 0.400, Neut % (Auto) 91.8 H, Lymph % (Auto) 4.8 L, [place]eman % (Auto) 2.6, Eos % (Auto) 0.2, Baso % (Auto) 0.2, Absolute Neuts (auto) 7.5, Absolute Lymphs (auto) 0.39 L, Nucleated RBC % 0, Differential Comment SCANNED 08/07/22 03:20: Sodium 135 L, Potassium 4.4, Chloride 107, Carbon Dioxide 17.0 L, Anion Gap 11, BUN 36 H, Creatinine 1.94 H, Estim Creat Clear Calc 44.42, Est GFR (MDRD) Af Amer 46 L, Est GFR (MDRD) Non-Af 38 L, BUN/Creatinine Ratio 18.6, Glucose 166 H, Calcium 8.1 L 08/07/22 08:30: POC Glucose 159 H Micro: Microbiology 08/06/22 03:41 Urine, Random Legionella Antigen - Final 08/06/22 03:41 Urine, Random Streptococcus pneumoniae Antigen (M - Final Radiography Diagnostic Testing: Radiology Impression Echocardiogram 08/06/22 09:44 Interpretation Summary Normal LV size. The estimated ejection fraction is 35 %. Stage 1 diastolic dysfunction. Moderate segmental systolic dysfunction (see wall motion). The left atrium is mildly enlarged. Contrast injection was performed. Compared to previous study, the left ventricular systolic function is the same.. Ordering Physician: Omero Rush Referring Physician: Cam Loyd Performed By: Madison Lares RDCS Rhythm Strip Rate: 70 Ectopy: None Physical Exam Narrative Unchanged from yesterday except: HEENT appears less anxious, mmm Chest with rare wheeze at left base, crackles are still present at the bases but improved. Ext no edema. Neuro: anxiety is less, not confused today as he was yesterday, good insight and conversational. Not slurring words today as he was yesterday. Nonfocal, good strength. Const General Appearance: cooperative HEENT Teeth and Gingiva: poor dentition
[2022-08-07] MEDS: predniSONE 20 MG Tablet 40 MG PO (10:41)
--- NOTE | 2022-08-07 10:42 | PCM.PN.HOSP ---
Subjective Subjective Feels much better than when he came into the hospital. An echo was obtained yesterday secondary to elevated troponins however there is no change in his baseline cardiac function Objective Data Objective Data Vital Signs: Vital Signs Temp Pulse Resp BP Pulse Ox O2 Del Method O2 Flow Rate 96.0 F L 84 20 H 123/78 H 99 Room Air 2 08/07/22 09:00 08/07/22 09:00 08/07/22 09:00 08/07/22 09:00 08/07/22 09:00 08/07/22 09:00 08/06/22 02:40 FiO2 30 08/06/22 04:45 Oxygen Flow Rate (L/min) 2 Oxygen Delivery Method Room Air Weight: 229 lb 8.019 oz Body Mass Index (BMI) 33.7 Intake & Output: Intake and Output for Last 24 Hours 08/06/22 08/07/22 08/08/22 03:59 03:59 03:59 Intake Total 2861.27 / 2865.97 2423.65 / 2423.65 315 / 315 Output Total 2500 / 2500 1700 / 1700 Balance 2861.27 / 2865.97 -76.35 / -76.35 -1385 / -1385 Lab / Micro Data Result Diagrams: 08/07/22 03:20 08/07/22 03:20 Labs: Laboratory Results - last 24 hr 08/06/22 11:34: POC Glucose 132 H 08/06/22 15:59: POC Glucose 185 H 08/06/22 20:41: POC Glucose 134 H 08/07/22 03:20: WBC 8.2, RBC 3.74 L, Hgb 11.4 L, Hct 33.9 L, MCV 90.6, MCH 30.5, MCHC 33.6, RDW Std Deviation 52.7 H, RDW Coeff of Shauna 15.7 H, Plt Count 136 L, MPV 10.4, Immature Gran % (Auto) 0.400, Neut % (Auto) 91.8 H, Lymph % (Auto) 4.8 L, Mcminn % (Auto) 2.6, Eos % (Auto) 0.2, Baso % (Auto) 0.2, Absolute Neuts (auto) 7.5, Absolute Lymphs (auto) 0.39 L, Nucleated RBC % 0, Differential Comment SCANNED 08/07/22 03:20: Sodium 135 L, Potassium 4.4, Chloride 107, Carbon Dioxide 17.0 L, Anion Gap 11, BUN 36 H, Creatinine 1.94 H, Estim Creat Clear Calc 44.42, Est GFR (MDRD) Af Amer 46 L, Est GFR (MDRD) Non-Af 38 L, BUN/Creatinine Ratio 18.6, Glucose 166 H, Calcium 8.1 L 08/07/22 08:30: POC Glucose 159 H Micro: Microbiology 08/06/22 03:41 Urine, Random Legionella Antigen - Final 08/06/22 03:41 Urine, Random Streptococcus pneumoniae Antigen (M - Final Radiography Diagnostic Testing: Radiology Impression Echocardiogram 08/06/22 09:44 Interpretation Summary Normal LV size. The estimated ejection fraction is 35 %. Stage 1 diastolic dysfunction. Moderate segmental systolic dysfunction (see wall motion). The left atrium is mildly enlarged. Contrast injection was performed. Compared to previous study, the left ventricular systolic function is the same.. Ordering Physician: Omero Rush Referring Physician: Cam Loyd Performed By: Madison Lares RDCS Rhythm Strip Rhythm Strip: Sinus Tach Rate: 70 Ectopy: None Physical Exam Narrative General: Alert, Oriented x3, Cooperative, No apparent distress HEENT: Atraumatic, PERRLA, EOMI, Normocephalic Oral: Moist Mucosa Neck: Supple, No JVD Lungs: Diminished, Normal air movement, No rhonchi, wheeze, No rales Cardiovascular: Regular rate, Regular Rhythm, Normal S1, Normal S2, No murmurs Abdomen: Soft, Non Tender, Non-Distended, No Hepato-splenomegaly Extremities: No edema, Capillary Refill Less than 3 Seconds Skin: No rashes, No breakdown Musculoskeletal: No Tenderness to Palpation of Joints or Extremities Neurological: Cranial nerves II-XII grossly intact, Motor Exam 5/5 strength throughout, Sensory exam intact to light touch and pain Psych/Mental Status: Normal Affect, Appropriate Assessment & Plan Assessment/Plan (1) Septic shock: (2) Pneumonia: PLAN: Plan 1. Septic shock secondary to pneumonia, elevated troponin is likely due to his septic shock ? Continue with broad-spectrum antibiotics, can likely discontinue the vancomycin ? He does have gram-negative blossom bacteremia awaiting identification and sensitivities ? Legionella and strep pneumonia antigens are negative ? Appreciate manager medicare marketing assistance ? Echo was unremarkable compared to baseline, he does have a reduced EF 2. Chronic systolic CHF/HTN/HLD ? Blood pressures currently stable off levo ? Continue with his home aspirin and Lipitor ? Given his high engine stay in the ICU needing pressor support, continue to hold his blood pressure medication 3. DM2/MAY on CKD 2 ? Blood sugar stable ? Hold his home metformin but can continue Jardiance ? Accu-Cheks AC at bedtime ? Sliding scale insulin ? Make adjustments as necessary ? We will continue to monitor renal function it does appear to be improving DVT: Lovenox Charges/Coding Visit Charges Inpatient E&M: 79828 Subs Hosp L2
[2022-08-07 11:50] LABS: Bedside Glucose 316 mg/dL (74-106)
[2022-08-07 17:51] LABS: Bedside Glucose 349 mg/dL (74-106)
[2022-08-07] MEDS: 0.9% Saline Lock 10 ML Syringe IV (20:16)
[2022-08-07 21:16] LABS: Vancomycin, Trough Level 15.3 ug/mL (5.0-15.0)
[2022-08-07] MEDS: Atorvastatin Calcium 80 MG Tablet PO (21:50)
--- NOTE | 2022-08-07 22:10 | PCM.RX.CS ---
Consult Pharmacy has been consulted to manage selected antiobiotic: Vancomycin Type of Consult: Follow-up Labs: Sodium 135 mmol/L (136-145) L 08/07/22 03:20 Potassium 4.4 mmol/L (3.5-5.1) 08/07/22 03:20 Chloride 107 mmol/L (98-107) 08/07/22 03:20 Carbon Dioxide 17.0 mmol/L (21.0-32.0) L 08/07/22 03:20 Anion Gap 11 (5-15) 08/07/22 03:20 BUN 36 mg/dL (7-18) H 08/07/22 03:20 Creatinine 1.94 mg/dL (0.70-1.30) H 08/07/22 03:20 Est GFR (MDRD) Af Amer 46 mL/min (>60) L 08/07/22 03:20 Est GFR (MDRD) Non-Af 38 mL/min (>60) L 08/07/22 03:20 BUN/Creatinine Ratio 18.6 RATIO (10-20) 08/07/22 03:20 Glucose 166 mg/dL (74-106) H 08/07/22 03:20 Vancomycin Trough 15.3 ug/mL (5.0-15.0) H 08/07/22 20:00 Microbiology: Microbiology 08/06/22 03:41 Urine, Random Legionella Antigen - Final 08/06/22 03:41 Urine, Random Streptococcus pneumoniae Antigen (M - Final Goal Trough: 15-20 mcg/mL Pharmacy Plan for Drug Dosing: VANCOMYCIN LEVEL RECEIVED Current Vancomycin Dose:750MG IV Q12H Number of Doses Received: 4 (3 prior to trough draw) Vancomycin Level: 15.3 Hours Since Last Dose: 11hr Renal Function: 1.94 Renal Function Trend: improvement from admission Lab/Micro: NGTD Vancomycin Plan/Comments: Patient had a trough drawn which resulted in a value of 15.3 (goal 15-20). The trough was drawn appropriately and is within goal range. Will continue current dose of vancomycin and recheck a trough in a few days to assess dosing at that time. Pending Level: 08/09/22 @1930 Pharmacy Service will continue to monitor and adjust dosing as required.
[2022-08-07 22:20] LABS: Bedside Glucose 390 mg/dL (74-106)
[2022-08-08] VITALS (14 sets, daily range): BP systolic 115–142; BP diastolic 76–86; PULSE 49–86; RESP 16–21; TEMP 36.3–36.7; O2SAT 95–98
--- NOTE | 2022-08-08 05:02 | CPS ---
Bipap not in room .. Pt doesn't wear one at home.
[2022-08-08 05:58] LABS: Absolute Lymphocyte Count 0.82 X10^3/uL (0.83-4.51); Absolute Neutrophil Count 8.5 X10^3/uL (2.0-7.7); Basophil# 0.01 X10^3/uL; Basophil% 0.1 % (0-1); Hematocrit 35.4 % (40-54); Hemoglobin 12.1 g/dL (13.0-16.5); Lymphocyte # 0.82 X10^3/ul (0.83-4.51); Mean Corp Hgb Conc 34.2 g/dL (32-36); Mean Corpuscular Volume 87.8 fL (80-94); Mean Platelet Vol. 11.5 fl (6.2-12.0); Monocyte# 0.83 X10^3/uL; Monocyte% 8.1 % (0-10); NRBC Flagged by Analyzer 0 % (0-5); Neutrophil # 8.53 X10^3/uL (2.7-7.7); Neutrophil % 83.3 % (47-70); Platelet Count 156 K/mm3 (150-450); RBC Distribution Width CV 15.7 % (11.6-14.6); RBC Distribution Width SD 50.4 fl (35.1-43.9); Red Blood Count 4.03 M/mm3 (4.6-6.2); White Blood Count 10.2 K/mm3 (4.4-11.0)
[2022-08-08] MEDS: Insulin Lispro 100 UNIT/ML INSULN.PEN SC ×4 (06:15→21:25)
[2022-08-08 06:31] LABS: Anion Gap 10 (5-15); BUN 44 mg/dL (7-18); Calcium,Total 8.6 mg/dL (8.5-10.1); Chloride 107 mmol/L (98-107); Creatinine, Serum 1.69 mg/dL (0.70-1.30); EST Glomerular Filtration Rate 45 mL/min (>60); Est Glom Filt Rate - Afr Amer 54 mL/min (>60); Estimated Creatinine Clearance 50.99 ml/min; Glucose 270 mg/dL (74-106); Potassium 4.6 mmol/L (3.5-5.1); Sodium Level 135 mmol/L (136-145)
[2022-08-08 06:41] LABS: Bedside Glucose 244 mg/dL (74-106)
[2022-08-08] MEDS: Ipratropium/Albuterol Sulfate 3 ML AMPUL.NEB INHALATION ×5 (07:04→23:25)
[2022-08-08] MEDS: predniSONE 20 MG Tablet 40 MG PO (08:09)
[2022-08-08] MEDS: Aspirin E.C. 81 MG Tablet PO (08:09)
[2022-08-08] MEDS: Enoxaparin 40 MG/0.4 ML Syringe SC (08:10)
[2022-08-08] MEDS: TICAGRELOR 90 MG TABLET PO ×2 (08:10→21:27)
[2022-08-08] MEDS: Empagliflozin 25 MG Tablet PO (08:12)
--- NOTE | 2022-08-08 09:20 | PN.HOSP_ITS ---
Subjective Subjective Doing well today, denies any chest pain or shortness of breath. No issues overnight Objective Data Objective Data Vital Signs: Vital Signs Temp Pulse Resp BP Pulse Ox O2 Del Method O2 Flow Rate 97.7 F L 65 18 122/76 H 95 Room Air 2 08/08/22 06:00 08/08/22 07:06 08/08/22 07:06 08/08/22 06:00 08/08/22 07:06 08/08/22 07:06 08/07/22 18:00 FiO2 30 08/07/22 18:00 Oxygen Flow Rate (L/min) 2 Oxygen Delivery Method Room Air Weight: 228 lb 13.437 oz Body Mass Index (BMI) 33.7 Intake & Output: Intake and Output for Last 24 Hours 08/07/22 08/08/22 08/09/22 03:59 03:59 03:59 Intake Total 2423.65 / 2423.65 935 / 935 700 / 700 Output Total 2500 / 2500 3150 / 3150 1625 / 1625 Balance -76.35 / -76.35 -2215 / -2215 -925 / -925 Lab / Micro Data Result Diagrams: 08/08/22 05:00 08/08/22 05:00 Labs: Laboratory Results - last 24 hr 08/07/22 11:32: POC Glucose 316 H 08/07/22 17:22: POC Glucose 349 H 08/07/22 20:00: Vancomycin Trough 15.3 H 08/07/22 21:49: POC Glucose 390 H 08/08/22 05:00: WBC 10.2, RBC 4.03 L, Hgb 12.1 L, Hct 35.4 L, MCV 87.8, MCH 30.0, MCHC 34.2, RDW Std Deviation 50.4 H, RDW Coeff of Shauna 15.7 H, Plt Count 156, MPV 11.5, Immature Gran % (Auto) 0.500, Neut % (Auto) 83.3 H, Lymph % (Auto) 8.0 L, [place] % (Auto) 8.1, Eos % (Auto) 0.0, Baso % (Auto) 0.1, Absolute Neuts (auto) 8.5 H, Absolute Lymphs (auto) 0.82 L, Nucleated RBC % 0 08/08/22 05:00: Sodium 135 L, Potassium 4.6, Chloride 107, Carbon Dioxide 18.0 L , Anion Gap 10, BUN 44 H, Creatinine 1.69 H, Estim Creat Clear Calc 50.99, Est GFR (MDRD) Af Amer 54 L, Est GFR (MDRD) Non-Af 45 L, BUN/Creatinine Ratio 26.0 H , Glucose 270 H, Calcium 8.6 08/08/22 06:15: POC Glucose 244 H Micro: Microbiology 08/06/22 03:41 Urine, Random Legionella Antigen - Final 08/06/22 03:41 Urine, Random Streptococcus pneumoniae Antigen (M - Final Rhythm Strip Rhythm Strip: Sinus Tach Rate: 70 Ectopy: None Physical Exam Narrative General: Alert, Oriented x3, Cooperative, No apparent distress HEENT: Atraumatic, PERRLA, EOMI, Normocephalic Oral: Moist Mucosa Neck: Supple, No JVD Lungs: Diminished, Normal air movement, No rhonchi, no wheeze, No rales Cardiovascular: Regular rate, Regular Rhythm, Normal S1, Normal S2, No murmurs Abdomen: Soft, Non Tender, Non-Distended, No Hepato-splenomegaly Extremities: No edema, Capillary Refill Less than 3 Seconds Skin: No rashes, No breakdown Musculoskeletal: No Tenderness to Palpation of Joints or Extremities Neurological: Cranial nerves II-XII grossly intact, Motor Exam 5/5 strength throughout, Sensory exam intact to light touch and pain Psych/Mental Status: Normal Affect, Appropriate Assessment & Plan Assessment/Plan (1) Septic shock: (2) Pneumonia: PLAN: Plan 1. Septic shock secondary to pneumonia, elevated troponin is likely due to his septic shock ? Continue with Zosyn can discontinue vancomycin and azithromycin. Blood cultures with E. coli and on repeat cultures are pending ? Awaiting sensitivities of the E. coli ? Legionella and strep pneumonia antigens are negative ? Appreciate vocational school teacher assistance ? Echo was unremarkable compared to baseline, he does have a reduced EF ? 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 Chronic systolic CHF/HTN/HLD ? Blood pressures currently stable off levo ? Continue with his home aspirin and Lipitor ? Continue to hold his blood pressure medication ? He did have an elevated troponin but this is likely a type II event in the setting of sepsis, especially since there is no change in his baseline echo. Would recommend outpatient follow-up with his primary emergency response officer on discharge. 3. DM2/MAY on CKD 2 ? Blood sugar stable ? Hold his home metformin but can continue Jardiance ? Accu-Cheks AC at bedtime ? Sliding scale insulin ? Make adjustments as necessary ? We will continue to monitor renal function it does appear to be improving DVT: Lovenox Charges/Coding Visit Charges Inpatient E&M: 37867 Subs Hosp L2
[2022-08-08 11:51] LABS: Bedside Glucose 322 mg/dL (74-106)
--- NOTE | 2022-08-08 14:20 | CASEMGMT ---
Per admission questions patient does not have a Healthcare Power of Vessel Welder or Healthcare Living Will and is not interested in documents. Alix Walker CONTRACT CONSULTANT ENGINEERING MANAGER
[2022-08-08] MEDS: 0.9% Saline Lock 10 ML Syringe IV ×2 (14:29→21:22)
--- NOTE | 2022-08-08 14:49 | CASEMGMT ---
Pt has been on room air for last several days with sats 97-100% and states no concerns with going home at time of discharge. Pt likely to d/c on 08/[address] Rush. Kenya DICKERSON CM
[2022-08-08 16:35] LABS: Bedside Glucose 409 mg/dL (74-106)
[2022-08-08] MEDS: Atorvastatin Calcium 80 MG Tablet PO (21:27)
[2022-08-08 22:30] LABS: Bedside Glucose 386 mg/dL (74-106)
[2022-08-09] VITALS (7 sets, daily range): BP systolic 120–151; BP diastolic 80–88; PULSE 75–97; RESP 16–18; TEMP 36.6–36.7; O2SAT 94–98
[2022-08-09 06:08] LABS: Absolute Lymphocyte Count 1.66 X10^3/uL (0.83-4.51); Absolute Neutrophil Count 7.3 X10^3/uL (2.0-7.7); Basophil# 0.02 X10^3/uL; Basophil% 0.2 % (0-1); Eosinophil# 0.07 X10^3/uL; Eosinophils% 0.7 % (0-5); Hematocrit 39.5 % (40-54); Hemoglobin 13.1 g/dL (13.0-16.5); Lymphocyte # 1.66 X10^3/ul (0.83-4.51); Lymphocyte % 16.1 % (19-41); Mean Corp Hgb Conc 33.2 g/dL (32-36); Mean Corpuscular Volume 90.4 fL (80-94); Mean Platelet Vol. 11.1 fl (6.2-12.0); Monocyte# 1.15 X10^3/uL; Monocyte% 11.2 % (0-10); NRBC Flagged by Analyzer 0 % (0-5); Neutrophil # 7.34 X10^3/uL (2.7-7.7); Neutrophil % 71.3 % (47-70); Platelet Count 194 K/mm3 (150-450); RBC Distribution Width CV 15.9 % (11.6-14.6); RBC Distribution Width SD 52.4 fl (35.1-43.9); Red Blood Count 4.37 M/mm3 (4.6-6.2); White Blood Count 10.3 K/mm3 (4.4-11.0)
[2022-08-09 06:38] LABS: Anion Gap 9 (5-15); BUN 40 mg/dL (7-18); BUN/Creat Ratio 23.3 RATIO (10-20); Calcium,Total 8.9 mg/dL (8.5-10.1); Chloride 107 mmol/L (98-107); Creatinine, Serum 1.72 mg/dL (0.70-1.30); EST Glomerular Filtration Rate 44 mL/min (>60); Est Glom Filt Rate - Afr Amer 53 mL/min (>60); Glucose 191 mg/dL (74-106); Potassium 4.3 mmol/L (3.5-5.1); Sodium Level 136 mmol/L (136-145)
[2022-08-09] MEDS: Insulin Lispro 100 UNIT/ML INSULN.PEN SC (06:51)
[2022-08-09] MEDS: Ipratropium/Albuterol Sulfate 3 ML AMPUL.NEB INHALATION ×2 (06:59→10:31)
[2022-08-09 07:20] LABS: Bedside Glucose 167 mg/dL (74-106)
--- NOTE | 2022-08-09 08:21 | DCINST_ITS ---
Discharge Instructions Diet Discharge Diet: Carb Control Diet Activity Return to work on:: 08/18/22 Dressing / Incision Call your doctor if you observe: Fever of 101 or Higher, Shortness of breath, Dizziness, Fainting spells, Swelling in the ankles, Chest pain and Increased palpitations (irregular heartbeat) Follow Up Care Test Results: Test results from this visit will be discussed in further detail at your follow- up appointment, if applicable. Discharge Plan Admission Admit Date/Time: 08/06/22 00:39 Attending Provider: Omero Rush Primary Care Provider: Cam Loyd Consulting Providers: Baljit Caban ; Joao Gregory Instructions Additional Instructions / Restrictions: Splint 3 to 5 days monitor your renal function. I also recommend referral for pulmonary function testing to evaluate the possibility and the severity of COPD. Discharge Orders/Prescriptions Prescriptions: New albuterol sulfate 90 mcg/actuation HFA aerosol inhaler 1 inh inhalation Q6H PRN (Reason: shortness of breath or wheezing) Qty: 8.5 1RF cephalexin 500 mg capsule 500 mg PO Q6H 10 Days Qty: 40 0RF Continued carvedilol 12.5 mg tablet 12.5 mg PO BID Qty: 180 3RF Rx Instructions: must administer with a meal/food rosuvastatin 40 mg tablet 40 mg PO DAILY Qty: 90 3RF ticagrelor 90 mg tablet 90 mg PO BID Qty: 180 3RF aspirin 81 mg tablet,delayed release (DR/EC) 81 mg PO DAILY@0800 Qty: 90 3RF metformin 500 mg tablet 1,000 mg PO BID Jardiance 10 mg tablet 25 mg PO DAILY Held valsartan 80 mg tablet 80 mg PO DAILY Qty: 90 3RF Hold Instructions: Resume on 08/12/22. Referrals / Follow Up: Cam Loyd MD [Primary Care Provider] - Within 1 Week Disposition Disposition (needs filled in before D/C Order can be placed): Home, Self Care
[2022-08-09] MEDS: Aspirin E.C. 81 MG Tablet PO (08:25)
[2022-08-09] MEDS: predniSONE 20 MG Tablet PO (08:25)
[2022-08-09] MEDS: Enoxaparin 40 MG/0.4 ML Syringe SC (08:26)
[2022-08-09] MEDS: Empagliflozin 25 MG Tablet PO (08:26)
[2022-08-09] MEDS: TICAGRELOR 90 MG TABLET PO (08:26)
--- NOTE | 2022-08-09 08:28 | PCM.DC.SUM ---
Providers Date of Admission: 08/06/22 Primary Care Physician: Dr. Cam Loyd MD Consultations 08/06/22 05:42 Consult: Supervisor Steno Pool / Pulmonary Medicine Routine Consulting Provider: Joao Gregory Reason for Consult: sepsis EMERGENT Consult: No MD Notified: Yes Date Notified: 08/06/22 Time Notified: 00:48 Method of Notification: Text Reason For Visit: SEPSIS Diagnosis Discharge Diagnosis (1) Septic shock: Status: Acute Code(s): A41.9 - Sepsis, unspecified organism; R65.21 - Severe sepsis with septic shock (2) Pneumonia: Status: Acute Code(s): J18.9 - Pneumonia, unspecified organism Plan 1. Septic shock secondary to pneumonia, elevated troponin is likely due to his septic shock ? Continue with Zosyn can discontinue vancomycin and azithromycin. Blood cultures with E. coli and on repeat cultures are pending ? Awaiting sensitivities of the E. coli ? Legionella and strep pneumonia antigens are negative ? Appreciate major gifts officer assistance ? Echo was unremarkable compared to baseline, he does have a reduced EF ? 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 Chronic systolic CHF/HTN/HLD ? Blood pressures currently stable off levo ? Continue with his home aspirin and Lipitor ? Continue to hold his blood pressure medication ? He did have an elevated troponin but this is likely a type II event in the setting of sepsis, especially since there is no change in his baseline echo. Would recommend outpatient follow-up with his primary global sales director on discharge. 3. DM2/MAY on CKD 2 ? Blood sugar stable ? Hold his home metformin but can continue Jardiance ? Accu-Cheks AC at bedtime ? Sliding scale insulin ? Make adjustments as necessary ? We will continue to monitor renal function it does appear to be improving DVT: Lovenox Medications at Discharge Home Medications aspirin 81 mg tablet,delayed release 81 mg PO DAILY@0800 #90 tabs 01/24/21 empagliflozin 10 mg tablet (Jardiance) 25 mg PO DAILY 01/24/21 metformin 500 mg tablet 1,000 mg PO BID 01/24/21 carvedilol 12.5 mg tablet 12.5 mg PO BID #180 tabs 02/18/22 rosuvastatin 40 mg tablet 40 mg PO DAILY #90 tabs 02/18/22 ticagrelor 90 mg tablet 90 mg PO BID #180 tabs 02/18/22 valsartan 80 mg tablet 80 mg PO DAILY #90 tabs 02/18/22 albuterol sulfate 90 mcg/actuation aerosol inhaler 1 inh inhalation Q6H PRN shortness of breath or wheezing #8.5 grams 08/09/22 cephalexin 500 mg capsule 500 mg PO Q6H 10 days #40 caps 08/09/22 Hospital Course Operations None Procedures Central line placement Summary of Care Provided Minutes Spent on Discharge: 40 Hospital Course: Per HPI: DALTON WARREN, is a 56 M with a significant history of tobacco abuse; CAD on aspirin and Plavix; diabetes mellitus; and CAD status post stents who presents emergency department with 2 to 2 and a half-days history of progressively worsening shortness of breath.? Associated with his symptom is nonproductive cough; anorexia; fever with temperature of 101 Fahrenheit at home.? Also he had chills and rigors.? Hospital Course: 1. Septic shock secondary to pneumonia with an elevated troponin likely due to a septic shock and E. coli bacteremia/MAY on CKD 2?56-year-old male presented from home with worsening shortness of breath as well as a nonproductive cough. We were unable to get a sputum culture however blood cultures did come back with a pansensitive E. coli. He was also started on prednisone by pulmonology secondary to respiratory wheezing he does not carry diagnosis of COPD however it is likely given his tobacco abuse. 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 We will plan for albuterol inhalers to go home with him. Also plan for 10 more days of p.o. Keflex 500 mg 4 times daily. I do recommend that he follow-up with his PCP for outpatient blood work to monitor his renal function as well as referral for PFT to gauge the possibility of COPD and its severity. Creatinine today is 1.72 which is down from the 2.2 that he was on admission. As for his troponin and echo was obtained which did not show any change from his baseline cardiac function therefore I do recommend outpatient follow-up with his global sales director as well. Given his MAY will hold his valsartan for a few days. 2. Chronic systolic CHF, hypertension, hyperlipidemia, type 2 diabetes all chronic medical conditions which complicate his care. His home medications will be continued where appropriate. Physical Exam Narrative General: Alert, Oriented x3, Cooperative, No apparent distress HEENT: Atraumatic, PERRLA, EOMI, Normocephalic Oral: Moist Mucosa Neck: Supple, No JVD Lungs: Diminished, Normal air movement, No rhonchi, wheeze, No rales Cardiovascular: Regular rate, Regular Rhythm, Normal S1, Normal S2, No murmurs Abdomen: Soft, Non Tender, Non-Distended, No Hepato-splenomegaly Extremities: No edema, Capillary Refill Less than 3 Seconds Skin: No rashes, No breakdown Musculoskeletal: No Tenderness to Palpation of Joints or Extremities Neurological: Cranial nerves II-XII grossly intact, Motor Exam 5/5 strength throughout, Sensory exam intact to light touch and pain Psych/Mental Status: Normal Affect, Appropriate Weight / BMI Weight Weight: 228 lb 13.437 oz Body Mass Index (BMI) 33.7 ABG / Lab / Microbiology Data Result Diagrams: 08/09/22 04:55 08/09/22 04:55 Laboratory: Laboratory Results - last 24 hr 08/08/22 11:24: POC Glucose 322 H 08/08/22 16:11: POC Glucose 409 H 08/08/22 21:19: POC Glucose 386 H 08/09/22 04:55: WBC 10.3, RBC 4.37 L, Hgb 13.1, Hct 39.5 L, MCV 90.4, MCH 30.0, MCHC 33.2, RDW Std Deviation 52.4 H, RDW Coeff of Shauna 15.9 H, Plt Count 194, MPV 11.1, Immature Gran % (Auto) 0.500, Neut % (Auto) 71.3 H, Lymph % (Auto) 16.1 L, [place] % (Auto) 11.2 H, Eos % (Auto) 0.7, Baso % (Auto) 0.2, Absolute Neuts (auto) 7.3, Absolute Lymphs (auto) 1.66, Nucleated RBC % 0 08/09/22 04:55: Sodium 136, Potassium 4.3, Chloride 107, Carbon Dioxide 20.0 L, Anion Gap 9, BUN 40 H, Creatinine 1.72 H, Estim Creat Clear Calc 50.10, Est GFR (MDRD) Af Amer 53 L, Est GFR (MDRD) Non-Af 44 L, BUN/Creatinine Ratio 23.3 H, Glucose 191 H, Calcium 8.9 08/09/22 06:48: POC Glucose 167 H Microbiology: Microbiology 08/06/22 03:41 Urine, Random Legionella Antigen - Final 08/06/22 03:41 Urine, Random Streptococcus pneumoniae Antigen (M - Final D/C Instructions Discharge Diet: Carb Control Diet Return to work on: 08/18/22 Call your doctor if you observe: Fever of 101 or Higher, Shortness of breath, Dizziness, Fainting spells, Swelling in the ankles, Chest pain and Increased palpitations (irregular heartbeat) Meaningful Use Info Meaningful Use Diagnoses (Choose all that apply): None applicable Discharge Plan Admission Admit Date/Time: 08/06/22 00:39 Attending Provider: Omero Rush Primary Care Provider: Cam Loyd Consulting Providers: Baljit Caban ; Joao Gregory Instructions Additional Instructions / Restrictions: Splint 3 to 5 days monitor your renal function. I also recommend referral for pulmonary function testing to evaluate the possibility and the severity of COPD. Discharge Orders/Prescriptions Prescriptions: New albuterol sulfate 90 mcg/actuation HFA aerosol inhaler 1 inh inhalation Q6H PRN (Reason: shortness of breath or wheezing) Qty: 8.5 1RF cephalexin 500 mg capsule 500 mg PO Q6H 10 Days Qty: 40 0RF Continued carvedilol 12.5 mg tablet 12.5 mg PO BID Qty: 180 3RF Rx Instructions: must administer with a meal/food rosuvastatin 40 mg tablet 40 mg PO DAILY Qty: 90 3RF ticagrelor 90 mg tablet 90 mg PO BID Qty: 180 3RF aspirin 81 mg tablet,delayed release (DR/EC) 81 mg PO DAILY@0800 Qty: 90 3RF metformin 500 mg tablet 1,000 mg PO BID Jardiance 10 mg tablet 25 mg PO DAILY Held valsartan 80 mg tablet 80 mg PO DAILY Qty: 90 3RF Hold Instructions: Resume on 08/12/22. Referrals / Follow Up: Cam Loyd MD [Primary Care Provider] - Within 1 Week Disposition Disposition (needs filled in before D/C Order can be placed): Home, Self Care Charges/Coding Visit Charges Inpatient E&M: 21572 Disch Hosp
--- NOTE | 2022-08-09 11:39 | NURSING ---
Central line removed per MD orders, patient tolerated well. Dressing applied. Supine position until 1200.
--- NOTE | 2022-08-09 12:32 | NURSING ---
Charting reviewed with Buzz Francisco RN
== END 2022-08-09 12:27 | disposition home or self-care (01) | DRG 871 ==
LOC: ED 23:39 → ICU 08-06 00:52 → PCU 08-07 17:31
PROVIDERS: Internal Medicine; Admitting Provider Hospitalist; Emergency Provider Emergency Medicine; PCP Family Medicine; Visit Provider Family Medicine
DX: A41.9 Sepsis, unspecified organism (principal); R65.21 Severe sepsis with septic shock; J15.5 Pneumonia due to Escherichia coli; I21.A1 Myocardial infarction type 2; I13.0 Hypertensive heart and chronic kidney disease with heart failure and stage 1 through stage 4 chronic kidney disease, or unspecified chronic kidney disease; N17.9 Acute kidney failure, unspecified; I50.22 Chronic systolic (congestive) heart failure; J44.0 Chronic obstructive pulmonary disease with (acute) lower respiratory infection; J44.1 Chronic obstructive pulmonary disease with (acute) exacerbation; E11.21 Type 2 diabetes mellitus with diabetic nephropathy; E11.22 Type 2 diabetes mellitus with diabetic chronic kidney disease; I25.119 Atherosclerotic heart disease of native coronary artery with unspecified angina pectoris; E83.39 Other disorders of phosphorus metabolism; N18.2 Chronic kidney disease, stage 2 (mild); I25.10 Atherosclerotic heart disease of native coronary artery without angina pectoris; I25.5 Ischemic cardiomyopathy; F17.210 Nicotine dependence, cigarettes, uncomplicated; E78.5 Hyperlipidemia, unspecified; I25.2 Old myocardial infarction; E66.9 Obesity, unspecified; Z68.33 Body mass index [BMI] 33.0-33.9, adult; Z71.6 Tobacco abuse counseling; Z95.5 Presence of coronary angioplasty implant and graft; Z79.82 Long term (current) use of aspirin; Z79.02 Long term (current) use of antithrombotics/antiplatelets; Z79.84 Long term (current) use of oral hypoglycemic drugs
CPT/HCPCS: 36415; 36556; 71045; 80048; 80053; 80202; 82962; 83605; 83880; 84484; 85025; 87040; 87449; 93005; 93306; 94002; 94640; 97802; 99251; 99285; J7030; J7040; J7050; Q9957; A4216; C1751; C8929; G0463; J1940

== ENCOUNTER → 2022-08-15 | Outpatient (CLI) | payer OTHER, SELFPAY ==
[2020-04-23 13:52] VITALS: BMI 33.5
--- NOTE | 2022-08-15 16:27 | RAD_ITS ---
STUDY: X-RAY CHEST REASON FOR EXAM: Male, 56 years old. PNEUMONIA TECHNIQUE: PA and lateral COMPARISON: 08/05/2022 FINDINGS: There is mild persistent bilateral lower lobe reticulonodular interstitial infiltrate although there is improved aeration since previous study. There is no demonstrated pleural abnormality. Normal size heart. Normal mediastinum and anderson. Normal visualized pulmonary arteries. Normal visualized aortic arch and descending thoracic aorta. Dorsal spine demonstrates degenerative change. Normal visualized ribs, clavicles, and shoulders. There is no demonstrated abnormality of the visualized soft tissue structures of the upper abdomen. RAD/Chest PA and Lateral IMPRESSION: Mild persistent bilateral inflammatory changes in the lower lobes with interval improvement since prior exam Electronically Signed: Sathish Milton MD at 22:03 EDT ,
[2022-08-15 17:48] LABS: Absolute Neutrophil Count 6.7 X10^3/uL (2.0-7.7); Basophil# 0.09 X10^3/uL; Basophil% 0.8 % (0-1); Eosinophil# 0.29 X10^3/uL; Eosinophils% 2.5 % (0-5); Hematocrit 41.7 % (40-54); Lymphocyte % 28.4 % (19-41); Mean Corp Hgb Conc 33.6 g/dL (32-36); Mean Corpuscular Hgb 30.6 pg (27.0-32.0); Mean Corpuscular Volume 91.2 fL (80-94); Mean Platelet Vol. 10.4 fl (6.2-12.0); Monocyte# 1.02 X10^3/uL; Monocyte% 8.8 % (0-10); NRBC Flagged by Analyzer 0 % (0-5); Neutrophil # 6.74 X10^3/uL (2.7-7.7); Neutrophil % 57.9 % (47-70); Platelet Count 440 K/mm3 (150-450); RBC Distribution Width CV 14.6 % (11.6-14.6); RBC Distribution Width SD 48.1 fl (35.1-43.9); Red Blood Count 4.57 M/mm3 (4.6-6.2); White Blood Count 11.6 K/mm3 (4.4-11.0)
[2022-08-15 18:20] LABS: ALB/GLOB Ratio 0.6 RATIO (0.9-2.4); AST(SGOT) 26 U/L (15-37); Alanine Aminotransfer ALT/SGPT 39 U/L (16-61); Albumin, Serum 3.2 g/dL (3.2-5.0); Alkaline Phosphatase 125 U/L (45-117); Anion Gap 9 (5-15); BUN 30 mg/dL (7-18); BUN/Creat Ratio 16.4 RATIO (10-20); Calcium,Total 9.1 mg/dL (8.5-10.1); Chloride 102 mmol/L (98-107); Creatinine, Serum 1.83 mg/dL (0.70-1.30); EST Glomerular Filtration Rate 41 mL/min (>60); Est Glom Filt Rate - Afr Amer 50 mL/min (>60); Globulin 5.1 g/dL (2.2-4.2); Glucose 256 mg/dL (74-106); Protein, Total 8.3 g/dL (6.4-8.2); Sodium Level 134 mmol/L (136-145)
== END | disposition home or self-care (01) ==
LOC: MTLAB 16:26
PROVIDERS: PCP Family Medicine; Referring Provider Family Medicine; Visit Provider Family Medicine
DX: J18.9 Pneumonia, unspecified organism (principal); A41.9 Sepsis, unspecified organism; S37.009A Unspecified injury of unspecified kidney, initial encounter
CPT/HCPCS: 36415; 71046; 80053; 85025

== ENCOUNTER → 2022-08-25 | Outpatient (CLI) | payer OTHER, SELFPAY ==
[2020-04-23 13:52] VITALS: BMI 33.5
[2022-08-25 13:00] LABS: Anion Gap 11 (5-15); BUN 29 mg/dL (7-18); BUN/Creat Ratio 18.2 RATIO (10-20); Calcium,Total 9.1 mg/dL (8.5-10.1); Chloride 104 mmol/L (98-107); Creatinine, Serum 1.59 mg/dL (0.70-1.30); EST Glomerular Filtration Rate 48 mL/min (>60); Est Glom Filt Rate - Afr Amer 58 mL/min (>60); Glucose 171 mg/dL (74-106); Potassium 4.5 mmol/L (3.5-5.1); Sodium Level 134 mmol/L (136-145)
[2022-08-26 15:08] LABS: PROEL- A/G Ratio 0.9 (0.7-1.7); PROEL- Albumin 3.6 g/dL (2.9-4.4); PROEL- Alpha-1 Globulin 0.3 g/dL (0.0-0.4); PROEL- Alpha-2 Globulin 1.3 g/dL (0.4-1.0); PROEL- Beta Globulin 1.3 g/dL (0.7-1.3); PROEL- TOTAL PROTEIN 7.6 g/dL (6.0-8.5)
== END | disposition home or self-care (01) ==
LOC: MFPLAB 10:37
PROVIDERS: PCP Family Medicine; Referring Provider Family Medicine; Visit Provider Family Medicine
DX: S37.009A Unspecified injury of unspecified kidney, initial encounter (principal); E77.8 Other disorders of glycoprotein metabolism
CPT/HCPCS: 36415; 80048; 84165

== ENCOUNTER → 2022-12-24 | Outpatient (CLI) | payer OTHER, SELFPAY ==
[2020-04-23 13:52] VITALS: BMI 33.5
[2022-12-24 15:56] LABS: Anion Gap 11 (5-15); BUN 24 mg/dL (7-18); BUN/Creat Ratio 16.8 RATIO (10-20); Chloride 102 mmol/L (98-107); Creatinine, Serum 1.43 mg/dL (0.70-1.30); EST Glomerular Filtration Rate 54 mL/min (>60); Est Glom Filt Rate - Afr Amer 66 mL/min (>60); Glucose 203 mg/dL (74-106); Potassium 4.5 mmol/L (3.5-5.1); Sodium Level 137 mmol/L (136-145)
== END | disposition home or self-care (01) ==
PROVIDERS: PCP Family Medicine; Referring Provider Family Medicine; Visit Provider Family Medicine
DX: S37.009A Unspecified injury of unspecified kidney, initial encounter (principal); R31.0 Gross hematuria; X58.XXXA Exposure to other specified factors, initial encounter
CPT/HCPCS: 36415; 80048; 87086; 87088; 87186

== ENCOUNTER → 2023-09-21 | Outpatient (CLI) | payer OTHER, SELFPAY ==
[2020-04-23 13:52] VITALS: BMI 33.5
--- NOTE | 2023-09-21 12:00 | RAD_ITS ---
EXAM: XR RIGHT SHOULDER COMPLETE, 2 OR MORE VIEWS CLINICAL INDICATION: shoulder pain; limited ROM TECHNIQUE: Two or more views of the right shoulder. COMPARISON: No relevant prior studies available. FINDINGS: BONES/JOINTS: Mild acromioclavicular and glenohumeral joint arthrosis. No acute fracture. No subluxation. Normal alignment. No sclerotic or destructive changes observed. SOFT TISSUES: No significant abnormality. No soft tissue swelling or gas. No radiopaque foreign body. RAD/Shoulder min 2 Views IMPRESSION: Mild acromioclavicular and glenohumeral joint arthrosis. No acute osseous abnormalities. Electronically Signed: Adolph Rojas DO at 20:29 EST ,
== END | disposition home or self-care (01) ==
LOC: MTRAD 11:58
PROVIDERS: PCP Family Medicine; Referring Provider Nurse Practitioner Family; Visit Provider Nurse Practitioner Family
DX: M25.511 Pain in right shoulder (principal)
CPT/HCPCS: 73030

== ENCOUNTER → 2023-12-21 | Outpatient (CLI) | payer OTHER, SELFPAY ==
[2020-04-23 13:52] VITALS: BMI 33.5
[2023-12-21 10:23] LABS: Absolute Lymphocyte Count 2.21 X10^3/uL (0.83-4.51); Basophil# 0.08 X10^3/uL; Eosinophil# 0.25 X10^3/uL; Eosinophils% 3.1 % (0-5); Hematocrit 49.2 % (40-54); Hemoglobin 15.9 g/dL (13.0-16.5); Lymphocyte # 2.21 X10^3/ul (0.83-4.51); Lymphocyte % 27.2 % (19-41); Mean Corp Hgb Conc 32.3 g/dL (32-36); Mean Corpuscular Hgb 29.8 pg (27.0-32.0); Mean Corpuscular Volume 92.1 fL (80-94); Mean Platelet Vol. 9.7 fl (6.2-12.0); Monocyte# 0.58 X10^3/uL; Monocyte% 7.1 % (0-10); NRBC Flagged by Analyzer 0 % (0-5); Neutrophil # 4.99 X10^3/uL (2.7-7.7); Neutrophil % 61.4 % (47-70); Platelet Count 262 K/mm3 (150-450); RBC Distribution Width CV 13.9 % (11.6-14.6); RBC Distribution Width SD 47.4 fl (35.1-43.9); Red Blood Count 5.34 M/mm3 (4.6-6.2); White Blood Count 8.1 K/mm3 (4.4-11.0)
[2023-12-21 11:56] LABS: AST(SGOT) 12 U/L (15-37); Alanine Aminotransfer ALT/SGPT 19 U/L (16-61); Alkaline Phosphatase 105 U/L (45-117); Anion Gap 8 (5-15); BUN 28 mg/dL (7-18); Bilirubin, Direct 0.12 mg/dL (0.00-0.30); Calcium,Total 9.6 mg/dL (8.5-10.1); Chloride 106 mmol/L (98-107); Cholesterol 147 mg/dL (200); EST Glomerular Filtration Rate 56 mL/min (>60); Est Glom Filt Rate - Afr Amer 67 mL/min (>60); Globulin 4.4 g/dL (2.2-4.2); Glucose 190 mg/dL (74-106); High Density Lipoprotein 30 mg/dL; Potassium 4.8 mmol/L (3.5-5.1); Protein, Total 8.4 g/dL (6.4-8.2); Sodium Level 136 mmol/L (136-145); Triglycerides 299 mg/dL; Very Low Density Lipoprotein 60 mg/dL (5-40)
== END | disposition home or self-care (01) ==
LOC: LAB 10:03
PROVIDERS: PCP Family Medicine; Referring Provider Nurse Practitioner Gerontology; Visit Provider Nurse Practitioner Gerontology
DX: I25.119 Atherosclerotic heart disease of native coronary artery with unspecified angina pectoris (principal); I25.5 Ischemic cardiomyopathy
CPT/HCPCS: 36415; 80048; 80061; 80076; 85025

== ENCOUNTER → 2024-05-05 | Outpatient (CLI) | payer SELFPAY ==
[2020-04-23 13:52] VITALS: BMI 33.5
[2024-05-05 15:18] LABS: Anion Gap 5 (5-15); BUN 24 mg/dL (7-18); BUN/Creat Ratio 15.9 RATIO (10-20); Calcium,Total 9.3 mg/dL (8.5-10.1); Chloride 101 mmol/L (98-107); Creatinine, Serum 1.51 mg/dL (0.70-1.30); EST Glomerular Filtration Rate 51 mL/min (>60); Est Glom Filt Rate - Afr Amer 62 mL/min (>60); Glucose 272 mg/dL (74-106); Potassium 4.8 mmol/L (3.5-5.1); Sodium Level 132 mmol/L (136-145)
[2024-05-05 15:28] LABS: Hemoglobin A1c 9.1 % (3.8-5.6)
== END | disposition home or self-care (01) ==
LOC: MFPLAB 12:21
PROVIDERS: PCP Family Medicine; Visit Provider Family Medicine
DX: E11.59 Type 2 diabetes mellitus with other circulatory complications (principal)
CPT/HCPCS: 36415; 80048; 83036